=== PATIENT | female | born 1965 | race Caucasian/White ===

== ENCOUNTER 2018-02-20 19:30 | Outpatient (CLI) | payer OTHER | END 2018-02-20 19:31 | disposition home or self-care (01) | LOC: SLEEPLAB 19:30 | PROVIDERS: ATTEND Family Medicine | DX: Z02.9 Encounter for administrative examinations, unspecified (principal); G47.33 Obstructive sleep apnea (adult) (pediatric); G47.61 Periodic limb movement disorder | CPT/HCPCS: 95810 ==

== ENCOUNTER 2018-03-28 09:13 | Outpatient (CLI) | payer OTHER | END 2018-03-28 09:14 | disposition home or self-care (01) | LOC: DTY/OP 09:13 | PROVIDERS: ATTEND Specialist | DX: Z01.818 Encounter for other preprocedural examination (principal); E66.01 Morbid (severe) obesity due to excess calories | CPT/HCPCS: 97802 ==

== ENCOUNTER 2019-02-03 17:57 | Inpatient (IN) | payer OTHER ==
[~2019-02-03 17:57] MED LIST: ISOVUE-370 76%-LOCM 1 ML ONE
[2019-02-03] MEDS ORDERED: Albuterol Sulfate 2.5 mg/3 ml Neb ONE (19:40)
[2019-02-04] MEDS ORDERED: Acetaminophen 325 MG TAB ONE (00:34)
[2019-02-04] MEDS ORDERED: Gabapentin 400 MG CAP PO SCH (01:00)
[2019-02-04] MEDS ORDERED: Dextrose 5% in Water 1,000 ML IV PRN (03:04)
[2019-02-04] MEDS ORDERED: HumaLOG 300 UNITS/3 ML VIAL SC PRN ×2 (03:04)
[2019-02-04] MEDS ORDERED: Dextrose 50% Abboject 50 ML SYRINGE SLOW IVP PRN (03:04)
[2019-02-04] MEDS ORDERED: Calcium Carbonate 500 MG ChewTAB PO PRN (03:05)
[2019-02-04] MEDS ORDERED: Ondansetron ODT 4 MG TAB PO PRN (03:05)
[2019-02-04] MEDS ORDERED: Acetaminophen 325 MG TAB PO PRN (03:05)
[2019-02-04] MEDS ORDERED: Ondansetron PF 4 MG/2 ML Vial IVP PRN (03:05)
[2019-02-04] MEDS ORDERED: Amlodipine 5 MG TAB PO SCH (03:15)
[2019-02-04] MEDS ORDERED: Acetaminophen/Codeine 30-300mg Tablet ONE (03:25)
[2019-02-04 07:09] LABS: Troponin I Less than 0.010 ng/mL (< 0.028)
[2019-02-04] MEDS: Budesonide 0.5 MG/2 ML NEB INH SCH ×2 (08:19→18:41)
[2019-02-04] MEDS: Doxycycline 100 MG CAP PO SCH ×2 (09:11→20:45)
[2019-02-04] MEDS: Amlodipine 5 MG TAB PO SCH (09:11)
[2019-02-04] MEDS: Famotidine 20 MG TAB PO SCH ×2 (09:11→20:45)
[2019-02-04] MEDS: Enoxaparin Sodium 40 MG/0.4 ML SYRINGE SC SCH (09:12)
[2019-02-04] MEDS: guaiFENesin ER 600 MG TAB PO SCH ×2 (09:12→20:46)
[2019-02-04] MEDS: Gabapentin 400 MG CAP PO SCH ×3 (09:12→20:46)
[2019-02-04] MEDS: cefTRIAXone\\ROCEPHIN 1 GM in Sodium Chloride 0.9% 100 ML IVPB SCH (09:13)
[2019-02-04 09:14] LABS: Troponin I Less than 0.010 ng/mL (< 0.028)
--- NOTE | 2019-02-04 11:02 | RAD ---
EXAM: Two views chest PROVIDED CLINICAL HISTORY: Shortness of breath COMPARISON: 03/23/2018 FINDINGS: Cardiac silhouette remains enlarged. Lungs appear free of significant opacity. No pleural fluid or pn eumothorax apparent. IMPRESSION: No evidence for an acute cardiopulmonary process.
[2019-02-04] MEDS: Acetaminophen/Codeine 30-300mg Tablet PO PRN ×3 (11:27→22:49)
[2019-02-04] MEDS: Benzonatate 100 MG CAP PO PRN ×3 (11:28→22:49)
--- NOTE | 2019-02-04 15:55 | PDOC.PN ---
- Subjective Encounter Start Date: 02/04/19 Encounter Start Time: 15:53 Ms. bonner was seen today in follow-up of respiratory failure. she says she is breathing a little better, but still is short of breath. She tells me she was a smoker, but reports to have had PFT's which were equivocal for COPD. She also offers that she had a sleep study about 6 months ago which did not show sleep apnea. She says her grand child is sick with the " croup" and there is another family member at the bedside who is actively coughing during the encounter. - Objective Resuscitation Status - Order Detail: 02/04/19 03:05 Resuscitation Status Routine Resuscitation Status: FULL: Full Resuscitation MAR Reviewed: Yes Vital Signs & Weight: Vital Signs (12 hours) Temp Pulse Resp BP BP Pulse Ox 02/04/19 14:14 89 16 02/04/19 12:40 97.8 F 77 16 131/68 98 02/04/19 11:31 85 20 02/04/19 08:20 98 02/04/19 08:19 84 20 02/04/19 07:35 98.7 F 98 18 141/63 H 95 02/04/19 04:43 86 02/04/19 04:40 100 02/04/19 04:29 98 F 86 20 142/93 H 100 Weight Weight 376 lb 14.4 oz Additional Labs: Accuchecks 02/04/19 02/04/19 02/04/19 11:35 05:07 04:15 POC Glucose 368 H 342 H 363 H 02/04/19 01:29 POC Glucose 338 H Phys Exam - Physical Examination HEENT: PERRLA Respiratory: wheezing present + bilateral wheezing at both bases Cardiovascular: RRR, no significant murmur, no rub Gastrointestinal: soft, non-tender, no distention, positive bowel sounds Musculoskeletal: pulses present, edema present 1+ edema Dx/Plan (1) Acute bronchitis Code(s): J20.9 - ACUTE BRONCHITIS, UNSPECIFIED Status: Acute (2) DM type 2 (diabetes mellitus, type 2) Status: Chronic Qualifiers: Diabetes mellitus complication status: without complication (3) HTN (hypertension) Code(s): I10 - ESSENTIAL (PRIMARY) HYPERTENSION Status: Chronic Qualifiers: Hypertension type: essential hypertension Qualified Code(s): I10 - Essential (primary) hypertension (4) Morbid obesity Code(s): E66.01 - MORBID (SEVERE) OBESITY DUE TO EXCESS CALORIES Status: Chronic - Plan * Acute bronchitis- continue Rocephin and Doxycycline * Continue Duonebs and Steroids. * DM- blood glucose is elevated- will add scheduled Lantus * HTN- blood pressure is stable
[2019-02-04] MEDS ORDERED: Insulin Glargine 20 UNITS in Pre-Filled Syringe SC SCH (21:00)
[2019-02-05 05:38] LABS: #Eosinphils 0.1 thou/uL (0.0-0.7); #Lymphocytes 2.5 thou/uL (1.20-3.40); #Monocytes 0.5 thou/uL (0.11-0.59); #Neutrophils 4.6 thou/uL (1.40-6.50); %Basophils 0.3 % (0.0-1.0); %Eosinophils 1.5 % (0.0-10.0); %Lymphocytes 32.9 % (21.0-51.0); %Monocytes 6.1 % (0.0-10.0); %Neutrophils 59.2 % (42.0-75.0); Hemoglobin 9.4 g/dL (12.0-16.0); Mean Corpuscular HGB CONC 31.7 g/dL (32.0-36.0); Mean Corpuscular Hemoglobin 29.1 pg (27.0-31.0); Mean Corpuscular Volume 91.7 fL (78.0-98.0); Mean Platelet Volume 7.8 fL (7.4-10.4); Platelet Count 229 thou/uL (130-400); RBC Distribution Width 12.5 % (11.5-14.5); Red Blood Cell (RBC) Count 3.24 mill/uL (4.20-5.40); White Blood Cell (WBC) Count 7.7 thou/uL (4.8-10.8)
[2019-02-05 05:48] LABS: Anion Gap 12 mmol/L (10-20); BUN (Urea Nitrogen) 24 mg/dL (9.8-20.1); Calc. Creatinine Clearance 144 mL/min (70-130); Calcium 8.7 mg/dL (7.8-10.44); Carbon Dioxide 28 mmol/L (22-29); Chloride 105 mmol/L (98-107); Estimated GFR-MDRD 46; Glucose 132 mg/dL (70-105); Potassium 4.5 mmol/L (3.5-5.1); Sodium 140 mmol/L (136-145)
[2019-02-05] MEDS: Budesonide 0.5 MG/2 ML NEB INH SCH ×2 (06:52→18:42)
--- NOTE | 2019-02-05 07:09 | HP ---
PRIMARY CARE PHYSICIAN: Dr. Carvajal. CHIEF COMPLAINT: Cough, shortness of breath, and wheezing of 2 days duration. HISTORY OF PRESENT ILLNESS: The patient is a 53-year-old female with hypertension, morbid obesity and asthma, presented to the emergency room at [place] with above symptoms. Over the last 2 days, also the patient developed gradual worsening shortness of breath along with cough, chest tightness, and wheezing. She also had a temperature of 102 degree Fahrenheit. The cough was essentially dry. She also had significant wheezing. The patient was getting short of breath on minimal exertion. She denies any change in her lower extremity swelling or tenderness. No recent immobilization reported. She felt generally weak and lightheaded. She tried using albuterol nebulization without much relief. Granddaughter was diagnosed with croup recently. In the emergency room at [place], her initial vital signs showed temperature 100.1 with respirations of 20, pulse rate of 89 with a blood pressure of 215/83 with O2 saturation of 94% on 2 L nasal cannula. Initial O2 saturation was 85% on room air. Chest x-ray was negative for infiltrate. She received azithromycin, ceftriaxone, Solu-Medrol, DuoNeb along with clonidine in the emergency room. PAST MEDICAL HISTORY: 1. Hypertension. 2. Chronic pain syndrome. 3. Peripheral neuropathy. 4. Mild intermittent asthma. 5. Morbid obesity. 6. Suspected obstructive sleep apnea. 7. Hyperlipidemia. 8. Degenerative joint disease. 9. Chronic diastolic heart failure, ejection fraction of 50% to 55% in the past. PAST SURGICAL HISTORY: 1. Cholecystectomy. 2. section x5. ALLERGIES: THE PATIENT IS ALLERGIC TO [employer] INH[employer] AND MORPHINE. CURRENT HOME MEDICATIONS: 1. Insulin pump. 2. Tylenol No. 3 as needed. 3. Gabapentin 800 mg three times a day. SOCIAL HISTORY: The patient currently lives at home with her family. She denies current use of smoking, alcohol, or drug use. She makes her own decision with the help of her family. The patient quit smoking more than 30 years ago. FAMILY HISTORY: Father of stroke in his 60s. REVIEW OF SYSTEMS: All other review of systems was reviewed and were found negative. PHYSICAL EXAMINATION: VITAL SIGNS: As discussed above. GENERAL: A 53-year-old female sitting on her wheelchair. Intermittent coughing with audible wheezing noted. No significant accessory muscle use. HEENT: Head, atraumatic and normocephalic. Sclerae anicteric. Moist mucous membranes. Minimal erythema over the posterior pharynx noted. NECK: Supple. No JVD appreciated. No carotid bruits. LUNGS: Showed expiratory wheezing bilaterally with scattered rhonchi. No significant rales noted. Minimal accessory muscle use. HEART: S1 and S2 present. Regular rate and rhythm. No rubs or gallops. ABDOMEN: Soft, obese. Bowel sounds present. EXTREMITIES: Chronic venous stasis noted. The patient has chronic bilateral lower extremity tenderness from peripheral neuropathy which is unchanged per patient report. SKIN: Warm and dry. LYMPH NODES: No palpable lymph nodes in the neck. PERIPHERAL VASCULAR: Radial pulses palpable bilaterally. MUSCULOSKELETAL: No joint swelling or tenderness. LABORATORY FINDINGS: WBC of 6.6 with hemoglobin 9.9, hematocrit 30.9, platelet of 195. D-dimer was 0.86. Chemistry showed sodium 140, potassium 4.2, chloride 106, bicarb 24, BUN 14, and creatinine 0.98. Lactic acid 0.8. LFTs in normal range. BNP was 87.5. Chest x-ray by my review was negative for infiltrate. Telemetry monitoring by my review showed sinus rhythm. IMPRESSION: 1. Acute hypoxic respiratory failure, suspected secondary to viral bronchitis, rule out pneumonia. 2. Hypertensive urgency. Please note, the patient is currently not on any antihypertensives. 3. Diabetes mellitus type 2, on insulin pump. 4. Chronic pain syndrome secondary to peripheral neuropathy, on gabapentin. 5. Chronic kidney disease, stage 2. 6. Morbid obesity. 7. Suspected sleep apnea. 8. Dyslipidemia. PLAN: The patient will be monitored as 23-hour observation. We will get respiratory viral panel. We will continue empiric antibiotics for suspected pneumonia. We will get a chest x-ray, PA and lateral in a.m. We will continue her insulin pump. Acute checks q.4 hourly. She received IV Solu-Medrol in the emergency room. We will add nebulizer treatments. We will add antihypertensive. Plan of care was discussed with the patient in detail. She stated understanding. Job ID: [id number]
[2019-02-05] MEDS ORDERED: Sodium Chloride 0.9% 1,000 ML IV SCH (08:30)
[2019-02-05] MEDS ORDERED: Insulin Glargine 20 UNITS in Pre-Filled Syringe SC SCH (09:00)
[2019-02-05] MEDS: cefTRIAXone\\ROCEPHIN 1 GM in Sodium Chloride 0.9% 100 ML IVPB SCH (09:07)
[2019-02-05] MEDS: Enoxaparin Sodium 40 MG/0.4 ML SYRINGE SC SCH (09:08)
[2019-02-05] MEDS: Famotidine 20 MG TAB PO SCH ×2 (09:08→20:59)
[2019-02-05] MEDS: Doxycycline 100 MG CAP PO SCH (09:08)
[2019-02-05] MEDS: guaiFENesin ER 600 MG TAB PO SCH ×2 (09:09→20:59)
[2019-02-05] MEDS: Gabapentin 400 MG CAP PO SCH ×3 (09:09→20:59)
[2019-02-05] MEDS: Amlodipine 5 MG TAB PO SCH (09:10)
[2019-02-05] MEDS: Acetaminophen/Codeine 30-300mg Tablet PO PRN ×2 (09:31→20:59)
[2019-02-05] MEDS: Benzonatate 100 MG CAP PO PRN ×3 (09:31→21:01)
[2019-02-05 10:54] LABS: Lactic Acid 1.3 mmol/L (0.5-2.2)
--- NOTE | 2019-02-05 11:29 | PDOC.PN ---
- Subjective Encounter Start Date: 02/05/19 Encounter Start Time: 11:27 Subjective: Continues with wheezing and coughing. Unable to bring up much phlegm but -: feels very congested. Reports tigthness in her chest. Continues on O2. -: Does not normally use oxygen at home. Is not on inhalers regularly. Denies any hx of COPD but told she had exercised induced asthma as a child. Denies any hemoptysis. Denies any further fevers. No n/v. Maintaining fluid intake by mouth. No abdominal pain or cramping. Reports constipation, at baseline. Unable to manage with OTC medication due to nausea. Denies any headaches or dizziness. No urinary symptoms. - Objective Resuscitation Status - Order Detail: 02/04/19 03:05 Resuscitation Status Routine Resuscitation Status: FULL: Full Resuscitation Vital Signs & Weight: Vital Signs (12 hours) Temp Pulse Resp BP BP Pulse Ox 02/05/19 10:46 78 20 96 02/05/19 09:10 77 02/05/19 09:02 97.7 F 77 20 129/61 98 02/05/19 06:52 82 20 94 L 02/05/19 06:50 82 20 94 L 02/05/19 04:00 97.6 F 81 18 107/58 L 95 02/05/19 03:55 97.6 F 81 18 107/58 L 95 02/05/19 02:11 75 16 95 Weight Weight 380 lb 6.4 oz I&O: 02/04/19 02/05/19 02/06/19 06:59 06:59 06:59 Intake Total 1354 Balance 1354 Result Diagrams: 02/05/19 05:07 02/05/19 05:07 Additional Labs: Accuchecks 02/05/19 02/05/19 02/05/19 10:55 09:51 09:51 WBC RBC Hgb Hct MCV MCH MCHC RDW Plt Count MPV Neutrophils % Lymphocytes % Monocytes % Eosinophils % Basophils % Neutrophils # Lymphocytes # Monocytes # Eosinophils # Basophils # Sodium Potassium Chloride Carbon Dioxide Anion Gap BUN Creatinine Estimated GFR (MDRD) Glucose POC Glucose 180 H Lactic Acid 1.3 Calcium Magnesium Creatine Kinase 48 Troponin I 02/05/19 02/05/19 02/05/19 05:44 05:07 05:07 WBC 7.7 RBC 3.24 L Hgb 9.4 L Hct 29.7 L MCV 91.7 MCH 29.1 MCHC 31.7 L RDW 12.5 Plt Count 229 MPV 7.8 Neutrophils % 59.2 Lymphocytes % 32.9 Monocytes % 6.1 Eosinophils % 1.5 Basophils % 0.3 Neutrophils # 4.6 Lymphocytes # 2.5 Monocytes # 0.5 Eosinophils # 0.1 Basophils # 0.0 Sodium 140 Potassium 4.5 Chloride 105 Carbon Dioxide 28 Anion Gap 12 BUN 24 H Creatinine 1.23 H Estimated GFR (MDRD) 46 Glucose 132 H POC Glucose 149 H Lactic Acid Calcium 8.7 Magnesium Creatine Kinase Troponin I 02/04/19 02/04/19 02/04/19 20:43 16:53 11:35 WBC RBC Hgb Hct MCV MCH MCHC RDW Plt Count MPV Neutrophils % Lymphocytes % Monocytes % Eosinophils % Basophils % Neutrophils # Lymphocytes # Monocytes # Eosinophils # Basophils # Sodium Potassium Chloride Carbon Dioxide Anion Gap BUN Creatinine Estimated GFR (MDRD) Glucose POC Glucose 184 H 282 H 368 H Lactic Acid Calcium Magnesium Creatine Kinase Troponin I 02/04/19 02/04/19 02/04/19 08:43 06:33 02:40 WBC RBC Hgb Hct MCV MCH MCHC RDW Plt Count MPV Neutrophils % Lymphocytes % Monocytes % Eosinophils % Basophils % Neutrophils # Lymphocytes # Monocytes # Eosinophils # Basophils # Sodium Potassium Chloride Carbon Dioxide Anion Gap BUN Creatinine Estimated GFR (MDRD) Glucose POC Glucose Lactic Acid Calcium Magnesium 1.8 Creatine Kinase Troponin I Less than 0.010 Less than 0.010 02/04/19 02:40 WBC RBC Hgb Hct MCV MCH MCHC RDW Plt Count MPV Neutrophils % Lymphocytes % Monocytes % Eosinophils % Basophils % Neutrophils # Lymphocytes # Monocytes # Eosinophils # Basophils # Sodium Potassium Chloride Carbon Dioxide Anion Gap BUN Creatinine Estimated GFR (MDRD) Glucose POC Glucose Lactic Acid Calcium Magnesium Creatine Kinase Troponin I Less than 0.010 Phys Exam - Physical Examination Constitutional: NAD HEENT: PERRLA, oral pharynx no lesions MMs dry Neck: no nodes, supple, full ROM Respiratory: wheezing present inspiratory/expiratory wheezing throughout all lung fleming Cardiovascular: RRR Gastrointestinal: soft, non-tender, no distention, positive bowel sounds Musculoskeletal: no edema neuropathic pain in lower legs extending to knees Neurological: non-focal, moves all 4 limbs Psychiatric: normal affect, A&O x 3 Skin: no rash, normal turgor Dx/Plan (1) Acute bronchitis Code(s): J20.9 - ACUTE BRONCHITIS, UNSPECIFIED Status: Acute Plan: Hypoxia, requiring O2. Not on oxygen at home. Persistent wheezing despite nebs. Prednisone 40 mg PO x 1 now, continue daily. ABG, if abnormal and hypoxic on RA, will need to convert to inpatient and consult pulmonary medicine. (2) DM type 2 (diabetes mellitus, type 2) Status: Chronic Qualifiers: Diabetes mellitus complication status: without complication Plan: Continue ISS, monitor glucose. (3) Dyslipidemia Code(s): E78.5 - HYPERLIPIDEMIA, UNSPECIFIED Status: Chronic (4) HTN (hypertension) Code(s): I10 - ESSENTIAL (PRIMARY) HYPERTENSION Status: Chronic Qualifiers: Hypertension type: essential hypertension Qualified Code(s): I10 - Essential (primary) hypertension Plan: Continue to monitor BP. (5) Morbid obesity Code(s): E66.01 - MORBID (SEVERE) OBESITY DUE TO EXCESS CALORIES Status: Chronic (6) Acute respiratory failure with hypoxia Code(s): J96.01 - ACUTE RESPIRATORY FAILURE WITH HYPOXIA Status: Acute Plan: ABG requested. Prednisone 40 mg daily. Continue duo nebs demond q 4 hrs. Sputum C&S. Monitor O2 sats. - Plan cont current plan of care Positive for parainfluenza 3 and rhinovirus. -: UA/UCx pending, no urinary symptoms. -: IV access lost, order placed for midline. -: D/C abx as no bacterial source of infection at present. Monitor Temp & WCC -: Lactic Acid and CK normal. Plan discussed with Dr. Bernal who agrees with above. ADDENDUM: ABG done at 3pm. Patient slightly acidodic. pH 7.24, CO2 498, pO2 95.8. Following discussion with Dr. Bernal, plan is to continue scheduled nebs. Started patient on steroids earlier today. For Pulmonary Consult tomorrow. Convert to inpatient
[2019-02-05] MEDS ORDERED: predniSONE 20 MG TAB PO SCH (12:00)
[2019-02-05 15:17] LABS: Bilirubin Negative (Negative); Blood, Urine Negative (Negative); Clarity CLEAR (Clear); Glucose, Urine (Dipstick) 100 mg/dL (Negative); Leukocyte Trace (Negative); Nitrite Negative (Negative); Protein, Urine (Dipstick) 100 mg/dL (Neg-Trace); Specific Gravity, Urine 1.015 (1.002-1.036); pH, Urine 5.5 (5.0-9.0)
[2019-02-05 15:19] LABS: RBC/HPF 0-3 HPF (0-3)
[2019-02-05 15:22] LABS: Pathc Cast-AUWi Flag 2.85 (0-2.49); Yeast-AUWi Flag 58.7 (0-25.0)
[2019-02-05 15:25] LABS: Actual Bicarbonate (HCO3a) 25.2 mEq/L (22-28); Base Excess (BEa) -1.2 mEq/L (-2.0 to +3.0); CO2 Tension 49.8 mmHg (35.0-45.0); Calcium, Ionized 1.17 mmol/L (1.12-1.30); Carboxyhemoglobin (COHb) 0.4 gm% (0.0-3.0); Hemoglobin (Hb) 10.8 g/dL (12.0-16.0); O2 Tension (PaO2) 95.8 mmHg (80.0-100.0); Potassium - ABG Lab 4.24 mmol/L (3.70-5.30); pH, Arterial 7.32 (7.35-7.45)
[2019-02-05 15:28] LABS: Puncture Site L.R.
[2019-02-05 15:31] LABS: Bacteria/HPF Rare-Few HPF (None Seen); Hyaline Casts/LPF 0-3 HYALINE CAST LPF (0-3 Hyaline); Manual Microscopic Reviewed? No Path Casts Seen; Yeast-All Forms None Seen HPF (None Seen)
[2019-02-05 15:32] LABS: Urine Culture Reflex No No
[2019-02-05] MEDS ORDERED: HUMALOG INSULIN SC PRN (20:26)
[2019-02-06] MEDS: cloNIDine 0.1 MG TAB PO PRN ×3 (04:05→19:41)
[2019-02-06] MEDS: Budesonide 0.5 MG/2 ML NEB INH SCH ×2 (07:24→18:22)
[2019-02-06] MEDS: Gabapentin 400 MG CAP PO SCH ×3 (09:12→19:54)
[2019-02-06] MEDS: Amlodipine 5 MG TAB PO SCH (09:12)
[2019-02-06] MEDS: predniSONE 20 MG TAB PO SCH (09:13)
[2019-02-06] MEDS: Enoxaparin Sodium 40 MG/0.4 ML SYRINGE SC SCH (09:13)
[2019-02-06] MEDS: Famotidine 20 MG TAB PO SCH ×2 (09:13→19:54)
[2019-02-06] MEDS: guaiFENesin ER 600 MG TAB PO SCH ×2 (09:13→19:54)
--- NOTE | 2019-02-06 09:46 | PDOC.PN ---
- Subjective Encounter Start Date: 02/06/19 Encounter Start Time: 11:00 Subjective: Patient with some difficulty last night, but breathing much better this -: AM. Cough improving. Still on NC O2. - Objective Resuscitation Status - Order Detail: 02/04/19 03:05 Resuscitation Status Routine Resuscitation Status: FULL: Full Resuscitation MAR Reviewed: Yes Vital Signs & Weight: Vital Signs (12 hours) Temp Pulse Resp BP BP Pulse Ox 02/06/19 09:12 93 02/06/19 08:00 98.3 F 93 20 141/65 H 96 02/06/19 07:24 89 20 95 02/06/19 04:12 85 20 95 02/06/19 04:05 228/107 H 02/06/19 04:00 97.3 F L 78 20 207/93 H 97 02/06/19 02:09 80 18 94 L Weight Weight 387 lb 11.2 oz I&O: 02/05/19 02/06/19 02/07/19 06:59 06:59 06:59 Intake Total 1354 2020 Output Total 840 Balance 1354 1180 Result Diagrams: 02/05/19 05:07 02/05/19 05:07 Additional Labs: Accuchecks 02/06/19 02/06/19 02/05/19 08:53 06:05 20:28 POC Glucose 302 H 299 H 184 H 02/05/19 02/05/19 16:51 10:55 POC Glucose 135 H 180 H Phys Exam - Physical Examination Constitutional: NAD obese HEENT: moist MMs Respiratory: no rales, no rhonchi, wheezing present no increased WOB Cardiovascular: RRR, no significant murmur Musculoskeletal: no edema Neurological: non-focal, moves all 4 limbs Psychiatric: normal affect, A&O x 3 Dx/Plan (1) Acute bronchitis Code(s): J20.9 - ACUTE BRONCHITIS, UNSPECIFIED Status: Acute Comment: positive for parainfluenza virus and rhinovirus, reactive airway disease now on O2, nebs, and steroids, I suspect there is actually some underlying COPD as well so will add back on the doxycycline. (2) Acute respiratory failure with hypoxia Code(s): J96.01 - ACUTE RESPIRATORY FAILURE WITH HYPOXIA Status: Acute (3) HTN (hypertension) Code(s): I10 - ESSENTIAL (PRIMARY) HYPERTENSION Status: Chronic Qualifiers: Hypertension type: essential hypertension Qualified Code(s): I10 - Essential (primary) hypertension Comment: occassional very high spikes, but then drops back down to normal, suspicious of false elevations due to cuff fit (4) DM type 2 (diabetes mellitus, type 2) Status: Chronic Qualifiers: Diabetes mellitus terminal block assembler insulin use: with detention use Diabetes mellitus complication status: without complication Qualified Code(s): E11.9 - Type 2 diabetes mellitus without complications; Z79.4 - MCC (current) use of insulin Comment: continue insulin pump (5) Dyslipidemia Code(s): E78.5 - HYPERLIPIDEMIA, UNSPECIFIED Status: Chronic (6) Morbid obesity Code(s): E66.01 - MORBID (SEVERE) OBESITY DUE TO EXCESS CALORIES Status: Chronic (7) Obesity hypoventilation syndrome Code(s): E66.2 - MORBID (SEVERE) OBESITY WITH ALVEOLAR HYPOVENTILATION Status : Suspected Comment: suspected - Plan cont current plan of care, continue antibiotics, respiratory therapy, DVT proph w/lovenox, DVT proph w/SCDs try to D/C O2 today and if does better overnight tonight can d/c home * . - Discharge Day Encounter end time: 11:20
[2019-02-06 11:34] VITALS: BMI 58.9
[2019-02-06] MEDS: Benzonatate 100 MG CAP PO PRN ×2 (16:07→20:01)
[2019-02-06] MEDS: Acetaminophen/Codeine 30-300mg Tablet PO PRN (19:41)
[2019-02-06] MEDS: Doxycycline 100 MG CAP PO SCH (19:54)
[2019-02-06] MEDS ORDERED: hydrALAZINE 20 MG/ML VIAL SLOW IVP PRN (21:09)
[2019-02-06] MEDS ORDERED: Acetaminophen/Codeine 30-300mg Tablet PO PRN (22:47)
[2019-02-07] MEDS: Benzonatate 100 MG CAP PO PRN (06:00)
[2019-02-07] MEDS: Budesonide 0.5 MG/2 ML NEB INH SCH (07:55)
[2019-02-07] MEDS: Gabapentin 400 MG CAP PO SCH (08:53)
[2019-02-07] MEDS: Doxycycline 100 MG CAP PO SCH (08:53)
[2019-02-07] MEDS: guaiFENesin ER 600 MG TAB PO SCH (08:53)
[2019-02-07] MEDS: Famotidine 20 MG TAB PO SCH (08:54)
[2019-02-07] MEDS: predniSONE 20 MG TAB PO SCH (08:54)
[2019-02-07] MEDS: Amlodipine 5 MG TAB PO SCH (08:54)
[2019-02-07] MEDS: Enoxaparin Sodium 40 MG/0.4 ML SYRINGE SC SCH (08:54)
[2019-02-07] MEDS: Acetaminophen/Codeine 30-300mg Tablet PO PRN (09:00)
--- NOTE | 2019-02-07 09:13 | PDOC.PN ---
- Subjective Encounter Start Date: 02/07/19 Encounter Start Time: 10:00 Subjective: Patient feeling much better. Off O2 since yesterday AM. Still with cough -: and wheezing but much better. Ready to go home. - Objective Resuscitation Status - Order Detail: 02/04/19 03:05 Resuscitation Status Routine Resuscitation Status: FULL: Full Resuscitation MAR Reviewed: Yes Vital Signs & Weight: Vital Signs (12 hours) Temp Pulse Resp BP BP Pulse Ox 02/07/19 08:54 73 02/07/19 07:52 73 14 99 02/07/19 04:00 97.6 F 79 20 114/52 L 96 02/07/19 02:00 87 150/67 H 02/07/19 01:39 81 18 97 02/07/19 00:00 188/80 H 02/06/19 21:49 71 16 98 02/06/19 21:48 217/93 H 02/06/19 21:21 84 214/87 H Weight Admit Weight 276 lb 14.4 oz Weight 378 lb 4.8 oz I&O: 02/06/19 02/07/19 02/08/19 06:59 06:59 06:59 Intake Total 2019 1700 Output Total 840 200 Balance 1180 1500 Result Diagrams: 02/05/19 05:07 02/05/19 05:07 Additional Labs: Accuchecks 02/07/19 02/06/19 02/06/19 05:38 20:38 17:28 POC Glucose 179 H 376 H 257 H 02/06/19 11:08 POC Glucose 293 H Phys Exam - Physical Examination Constitutional: NAD HEENT: moist MMs Respiratory: no rales, no rhonchi, wheezing present improved air movement and less wheezing today Cardiovascular: RRR, no significant murmur Gastrointestinal: soft, positive bowel sounds Neurological: non-focal, moves all 4 limbs Psychiatric: normal affect, A&O x 3 Dx/Plan (1) Acute bronchitis Code(s): J20.9 - ACUTE BRONCHITIS, UNSPECIFIED Status: Acute Comment: positive for parainfluenza virus and rhinovirus, reactive airway disease now on O2, nebs, and steroids, I suspect there is actually some underlying COPD as well so will add back on the doxycycline. (2) Acute respiratory failure with hypoxia Code(s): J96.01 - ACUTE RESPIRATORY FAILURE WITH HYPOXIA Status: Acute (3) HTN (hypertension) Code(s): I10 - ESSENTIAL (PRIMARY) HYPERTENSION Status: Chronic Qualifiers: Hypertension type: essential hypertension Qualified Code(s): I10 - Essential (primary) hypertension Comment: occassional very high spikes, but then drops back down to normal, suspicious of false elevations due to cuff fit (4) DM type 2 (diabetes mellitus, type 2) Status: Chronic Qualifiers: Diabetes mellitus entry specialists insulin use: with jail use Diabetes mellitus complication status: without complication Qualified Code(s): E11.9 - Type 2 diabetes mellitus without complications; Z79.4 - supervisor electric (current) use of insulin Comment: continue insulin pump (5) Dyslipidemia Code(s): E78.5 - HYPERLIPIDEMIA, UNSPECIFIED Status: Chronic (6) Morbid obesity Code(s): E66.01 - MORBID (SEVERE) OBESITY DUE TO EXCESS CALORIES Status: Chronic (7) Obesity hypoventilation syndrome Code(s): E66.2 - MORBID (SEVERE) OBESITY WITH ALVEOLAR HYPOVENTILATION Status : Suspected Comment: suspected - Plan cont current plan of care, continue antibiotics, respiratory therapy Off O2, can d/c home today * . - Discharge Day Encounter end time: 10:15
[2019-02-07 11:44] VITALS: BP 179/79; TEMP 97.8
--- NOTE | 2019-02-07 15:10 | DIS ---
DATE OF ADMISSION: 02/04/2019 DATE OF DISCHARGE: 02/07/2019 PRIMARY CARE PHYSICIAN: Dr. Carvajal. REASON FOR ADMISSION: Cough, wheezing, and shortness of breath with hypoxic respiratory failure. DIAGNOSES AT DISCHARGE: 1. Acute viral bronchitis from parainfluenza and rhinoviruses with reactive airway disease. 2. Acute respiratory failure with hypoxia, improved. 3. Hypertension. 4. Diabetes mellitus, type 2. 5. Dyslipidemia. 6. Morbid obesity. 7. Suspected obesity hypoventilation syndrome. PROCEDURES: None. CONSULTATIONS: None. SUMMARY OF HOSPITAL COURSE: This is a 53-year-old white female with a history of morbid obesity and childhood asthma, but without recent significant symptoms. She took her child to the doctor who ended up having croup. The patient started to have cough, chest tightness and wheezing, temperature to 102 degrees Fahrenheit. At home, she did have a nebulizer from one of her children that she used once at home without significant improvement, so she came into the [facility]. There, she had a low-grade temperature, severe hypertension, and room-air hypoxia at 85%. No infiltrates noticed on the chest x-ray. She was given azithromycin, Rocephin, Solu-Medrol and DuoNeb, and then transferred to the hospital here for admission. The patient was treated with antibiotics in the hospital. She did have a nasal swab done, which showed positive for parainfluenza virus and rhinovirus, but she was negative for flu. At this time, her Rocephin was discontinued. She was continued on doxycycline during her hospital course, as well as prednisone and nebulizer treatments with slow improvement in her symptoms. She has been off oxygen for 24 hours, still having some wheezing and cough, but significantly better and ready to discharge home. DISCHARGE MANAGEMENT: Discharged home. FOLLOWUP: Follow up with Dr. Carvajal in the next week. ACTIVITY: As tolerated. DIET: Diabetic low-sodium diet. DISCHARGE MEDICATIONS: 1. Albuterol sulfate inhaler 2 puffs every 4 hours as needed for coughing, wheezing, shortness of breath, one inhaler dispensed. 2. DuoNeb 3 mL neb q.4 hours as needed for coughing, wheezing, shortness of breath, 60 vials dispensed. 3. Budesonide 0.5 mg inhaled via nebulizer twice a day, 30 ampules dispensed. 4. Amlodipine 5 mg daily, 30 tablets dispensed. 5. Tessalon Perles as needed. 6. Guaifenesin ER twice a day as needed. 7. Prednisone 40 mg daily for another 3 days. 8. Continue gabapentin 800 mg 3 times a day. 9. Continue home acetaminophen and codeine as needed. 10. Continue insulin pump as previously directed. She may continue to use at increased rate while she is still on the steroids and her blood sugar is running high. Job ID: [id number] OTPHER
== END 2019-02-07 13:52 | disposition home or self-care (01) | DRG 202 ==
LOC: ERS 17:57 → 2NO 02-04 01:58 → OBSVTOIN 02-04 01:58
PROVIDERS: ADMIT Internal Medicine; ATTEND Internal Medicine
DX: J20.4 Acute bronchitis due to parainfluenza virus (principal); J96.01 Acute respiratory failure with hypoxia; J45.901 Unspecified asthma with (acute) exacerbation; I50.22 Chronic systolic (congestive) heart failure; J44.0 Chronic obstructive pulmonary disease with (acute) lower respiratory infection; Z68.43 Body mass index [BMI] 50.0-59.9, adult; E66.2 Morbid (severe) obesity with alveolar hypoventilation; J20.6 Acute bronchitis due to rhinovirus; G89.4 Chronic pain syndrome; E78.5 Hyperlipidemia, unspecified; I11.0 Hypertensive heart disease with heart failure; E11.42 Type 2 diabetes mellitus with diabetic polyneuropathy; I16.0 Hypertensive urgency; Z96.41 Presence of insulin pump (external) (internal); M17.0 Bilateral primary osteoarthritis of knee; Z79.899 Other long term (current) drug therapy; Z88.5 Allergy status to narcotic agent; Z90.49 Acquired absence of other specified parts of digestive tract; Z87.891 Personal history of nicotine dependence; Z88.8 Allergy status to other drugs, medicaments and biological substances; Z79.4 Long term (current) use of insulin
CPT/HCPCS: 36415; 36416; 71046; 71275; 80048; 81001; 82550; 82805; 83605; 83735; 84145; 84484; 85025; 87040; 87633; 94640; 94760; J0360; J0696; J1650; J1825; J3490; J7512; J7611; J7620; J7626; Q0162; Q9966

== ENCOUNTER 2019-04-16 01:23 | Inpatient (IN) | payer OTHER, SELFPAY ==
[2019-04-16] MEDS ORDERED: Morphine 10 MG/ML VIAL ONE (02:39)
--- NOTE | 2019-04-16 07:30 | RAD ---
EXAM: Single view of the chest HISTORY: Central line placement COMPARISON: 04/15/2019 FINDINGS: Single view of the chest shows an enlarged but stable cardiomediastinal silhouette. A left IJ central venous catheter seen with its tip in the superior vena cava. No pneumothorax is seen. There is no evidence of consolidation, mass, or pleural effusion. The bones are unremarkable. IMPRESSION: Status post central line placement without evidence of complication.
--- NOTE | 2019-04-16 07:49 | CT ---
PRELIMINARY REPORT/[facility]/EMERGENCY AFTER HOURS PROCEDURE: EXAM: CT Right Lower Extremity Without Contrast, Foot EXAM DATE/TIME: 04/16/2019 2:10 AM CLINICAL HISTORY: 53 years old, female; Patient HX: 53yof w/hx of osteomyletis, HTN, dm, neuropathy, pvd, was transferr ed from [facility] for infection to right foot after stepping on a bottle cap 2 weeks ago. States pain has been worsening and it has turned color. Denies any fever. Has had some back pain recently with nausea . Diagnosed with pyelonephritis at [facility] and given dose of rocephin. TECHNIQUE: Imaging protocol: CT of the Right lower extremity without contrast was performed. Exam focused on the foot. Coronal and sagittal reformatted images were created and reviewed. COMPARISON: No relevant prior studies available. FINDINGS: Bones/joints: Chronic lysis of the head of the fifth metatarsal. Degenerative changes of the foot. No acute fracture. Soft tissues: Subcutaneous edema predominantly along the posterior lateral lower calf and throughout the foot. Focal increased soft tissue density around the 5th metatarsal interphalangeal joint without drainable fluid collection. IMPRESSION: 1. Subcutaneous edema throughout the posterior lateral lower calf and throughout the foot. 2. More focal soft tissue density at the 5th metatarsal interphalangeal joint with chronic lysis of t he head of the fifth metatarsal, either from chronic osteomyelitis or prior surgery. No drainable fluid collection. 3. No erosive changes of the foot suspicious for acute osteomyelitis; however MRI is more sensitive. Thank you for allowing us to participate in the care of your patient. Dictated and Authenticated by: Carolina Medley MD 04/16/2019 3:36 AM Central Time ([place] & [place]) FINAL REPORT: Exam: RIGHT FOOT CT SCAN WITHOUT IV CONTRAST: Emergency after exam 2:10 AM 04/16/2019 Generalized subcutaneous edema and swelling. Evidence for probable prior resection of the fifth metat arsal head. With minimal associated increased swelling but no evidence for drainable fluid collection. No evidence for acute bony erosive or destructive changes. Consider follow-up MRI which w ould be much more sensitive for early changes of osteomyelitis. This report is in agreement with a preliminary report. Transcribed Date/Time: 04/16/2019 9:17 AM
--- NOTE | 2019-04-16 08:55 | ULT ---
PRELIMINARY REPORT/[facility]/EMERGENCY AFTER HOURS PROCEDURE: EXAM: US Duplex Right Lower Extremity Veins, Limited EXAM DATE/TIME: 04/16/2019 4:08 AM CLINICAL HISTORY: 53 years old, female; Pain; Leg, lower; Right; Patient HX: History of neuropathy, cellulitis. Current right foot infection TECHNIQUE: Imaging protocol: Real-time Duplex ultrasound of the Right Lower Extremity with 2-D murguia scale, color Doppler flow and spectral waveform analysis. Limited exam was focused on the right lower extremity v eins. COMPARISON: No relevant prior studies available. FINDINGS: Right deep veins: The common femoral, femoral, proximal profunda femoral and popliteal veins are patent without thrombus. Normal Doppler waveforms. Normal compressibility and/or augmentation response. Visualized calf veins were patent. Right superficial veins: Saphenofemoral junction is patent without thrombus. Soft tissues: Soft tissue edema of the calf. IMPRESSION: 1. No evidence of deep vein thrombosis. 2. Soft tissue edema of the calf. Thank you for allowing us to participate in the care of your patient. Dictated and Authenticated by: Carolina Medley MD 04/16/2019 4:41 AM Central Time ([place] & [place]) FINAL REPORT EMERGENT AFTER HOURS RIGHT LOWER EXTREMITY VENOUS ULTRASOUND: FINDINGS/IMPRESSION: I agree with the findings and impression given in the preliminary report per [facility] physician. No evidence of right lower extremity deep vein thrombosis. POS: [facility]
[2019-04-16] MEDS ORDERED: Acetaminophen/Codeine 30-300mg Tablet PO SCH (11:00)
[2019-04-16] MEDS ORDERED: Acetaminophen/Codeine 30-300mg Tablet PO PRN (11:07)
[2019-04-16] MEDS ORDERED: Ondansetron PF 4 MG/2 ML Vial IVP PRN (11:08)
[2019-04-16] MEDS ORDERED: Guaifenesin DM 100-10/5 ML UDCUP PO PRN (11:08)
[2019-04-16] MEDS ORDERED: Bisacodyl 10 MG SUPP PR PRN (11:08)
[2019-04-16] MEDS ORDERED: Acetaminophen 325 MG TAB PO PRN (11:08)
[2019-04-16] MEDS ORDERED: Senokot S 8.6-50 MG TAB PO PRN (11:08)
[2019-04-16] MEDS ORDERED: HumaLOG 300 UNITS/3 ML VIAL SC PRN (11:17)
[2019-04-16 11:22] VITALS: BMI 55.5
[2019-04-16] MEDS ORDERED: Morphine 4 MG/ML VIAL SLOW IVP SCH (11:30)
--- NOTE | 2019-04-16 12:04 | CT ---
EXAM: Abdomen and pelvic CT scan without contrast: HISTORY: Urinary tract infection, obstructive uropathy, stones COMPARISON: None FINDINGS: The visualized lung bases are clear. Liver: Unremarkable. Gallbladder:Status post cholecystectomy. Pancreas:Unremarkable Spleen:Unremarkable. Adrenal glands:Unremarkable. Kidneys:Small nonobstructing left renal calculus. No evidence for acute obstruction. No solid or cystic mass. No evidence for bowel obstruction. No CT evidence for acute appendicitis. Urinary bladder is unremarkable. Small uterus. No abscess, adenopathy, or abnormal fluid collection within the abdomen or pelvis. IMPRESSION: Small nonobstructing left renal calculus. No evidence for acute obstruction or other acute process .
--- NOTE | 2019-04-16 14:48 | HP ---
Carmita Cain is a 53-year-old female, morbidly obese, 5 feet 8 inches, 365 pounds, 55 BMI. Has attended our bariatric seminar, completed a medically-supervised weight loss program, but has not followed up for bariatric surgery. She stepped on a coke bottle lid several weeks ago, resulting in some pain in her right foot. She has small hematoma beneath the fifth metatarsophalangeal area plantar. She states this is hurting her quite a bit. She has previously been seen in [place] while in the hospital and underwent resection of the fifth metatarsal head. The area of concern is in that same area. She has undergone plain x-rays and a CAT scan revealing some edema in the lower extremities, but no abscess. Clinically evaluation, she has palpable pedal pulses and although she is tender in this area, there is no evidence of infection. She has chronic venous stasis disease with chronic cellulitis of lower extremities, but this does not involve the area in question. She has been admitted from the emergency room for UTI. The patient is a poorly compliant diabetic. Glucose is 204. She is requesting her regular diet instead of a diabetic diet. I have discussed with Dr. Feliz, and plan is to send her home on oral antibiotics both for UTI and her foot, and she should follow up with me in my office in the next 2 to 3 weeks. Sooner, if there are any problems. She could also follow up with her foot surgeon due to her surgery in the past. Job ID: [id number]
[2019-04-16] MEDS ORDERED: Gabapentin 400 MG CAP PO SCH (15:00)
[2019-04-16 16:48] VITALS: BP 158/83; TEMP 97.8
[2019-04-16] MEDS ORDERED: Famotidine 20 MG TAB PO SCH (21:00)
[2019-04-16] MEDS ORDERED: Hydrochlorothiazide 25 MG TAB PO SCH (21:00)
--- NOTE | 2019-04-16 21:35 | SS ---
DATE OF ADMISSION: 04/16/2019 DATE OF DISCHARGE: 04/16/2019 REASON FOR ADMISSION: Suspected cellulitis, UTI. HISTORY OF PRESENTING ILLNESS: The patient gives history of stepping on a bottle cap in the shower two weeks back. This was a body lotion tube cap. She had a small laceration then with some bleeding. Her daughter, who is a nurse, put some silver sulfadiazine cream and this cut has healed well. She has a darkened skin area on the plantar aspect of the right 4th and 5th metatarsal head area. The patient apparently went to [place] ER as she had pain in her foot. She was transferred here for further care for her suspected cellulitis. The patient has pain in both lower extremities. She has chronic erythema and edema of both lower extremities. She also has diabetic neuropathy with extreme sensitivity in both legs. The patient stays last year when she had osteomyelitis in the right fifth metatarsal head, she had pneumonia and went into sepsis and acute renal failure and this concerned her hence went to [place] emergency room if she is having a current infection. PAST MEDICAL AND SURGICAL HISTORY: Diabetes mellitus from last 20 years, diabetic neuropathy, gastroparesis, hypertension, prior history of right 5th toe osteomyelitis, x5, cholecystectomy. CURRENT MEDICATIONS: The patient is on: 1. NovoLog insulin pump. 2. Gabapentin 800 mg three times daily. 3. Hydrochlorothiazide 25 mg on a p.r.n. basis. 4. Tylenol No.3 q.4 hours hourly p.r.n. ALLERGIES: ALLERGIC TO TAHMINA INHIBITORS AND LATEX. PLEASE NOTE, THE PATIENT IS NOT ALLERGIC TO MORPHINE, BUT WHEN SHE TAKES IT WITH PHENERGAN, SHE GOES INTO RESPIRATORY DEPRESSION. PERSONAL HISTORY: Does not smoke, abuse alcohol, or drugs. FAMILY HISTORY: Both parents are . Mother at the age of 76 years. She has had history of endometrial cancer. Father at the age of 75 years from a massive stroke. He also had history of COPD, emphysema, hypertension and was obese. REVIEW OF SYSTEMS: CONSTITUTIONAL: Negative for weight loss or gain, ability to conduct usual activities. SKIN: Negative for rash, itching. EYES: Negative for double vision, pain. ENT/MOUTH: Negative for nose bleeding, neck stiffness, pain, tenderness. CARDIOVASCULAR: Negative for palpitations, dyspnea on exertion, orthopnea. RESPIRATORY: Negative for shortness of breath, wheezing, cough, hemoptysis, fever or night sweats. GASTROINTESTINAL: Negative for poor appetite, abdominal pain, heartburn, nausea, vomiting, constipation, or diarrhea. GENITOURINARY: Negative for urgency, frequency, dysuria, nocturia. MUSCULOSKELETAL: Negative for pain, swelling. NEUROLOGIC/PSYCHIATRIC: Negative for anxiety, depression. ALLERGY/IMMUNOLOGIC: Negative for skin rash, bleeding tendency. PHYSICAL EXAMINATION: GENERAL: The patient is a 53-year-old female, who is currently not in any acute distress. VITAL SIGNS: Blood pressure 144/80, pulse 66 per minute, respiratory rate 16 per minute, temperature 97.5 degrees Fahrenheit, saturating 98% on room air. NECK: Supple. No elevated JVD. HEENT: Eyes; extraocular muscles intact. Pupils reacting to light. Oral cavity, mucous membranes are moist. No exudates or congestion. CARDIOVASCULAR: S1-S2 heard. Regular rhythm. RESPIRATORY: Air entry 1+ bilateral. No rales or rhonchi. ABDOMEN: Soft. Bowel sounds heard. No tenderness, rigidity, or guarding. EXTREMITIES: The patient has chronic nonpitting edema in both lower extremities and has erythema which is chronic again to both calf and leg area. The patient has increased sensitivity to both feet with no worsening of any pain in the right leg as such or foot area. She has a hematoma with discoloration of skin over the plantar aspect of right 4th and 5th metatarsal head area. Peripheral pulses are 1+ bilateral. No ischemic ulcers or gangrene. CENTRAL NERVOUS SYSTEM: No gross focal deficits noted. The patient is alert, awake, and oriented well. PSYCHIATRIC: Patient's mood is euthymic. No hallucinations or delusions. DIAGNOSTIC DATA: Right lower extremity CAT scan without contrast done shows subcutaneous edema. The patient has chronic lysis of the head of the 5th metatarsal. No drainable fluid collection. No erosive changes of the foot suspicious for acute osteomyelitis. CT stone protocol done shows small nonobstructing left renal calculus. No evidence for acute genitourinary obstruction or other acute process. Chest x-ray done shows left IJ central venous catheter in position with no complication. Right lower extremity ultrasound venous Doppler done shows no evidence of DVT. Right foot three-view x-ray done shows absence of 5th metatarsal head and neck. White count of 10, H and H 11 and 33, platelet count 231, MCV 86 with 65% neutrophils. BUN 24, creatinine 1.1, serum bicarb 26. Serum glucose was 403 last evening, current fingersticks are trending at 204 and 139. Liver enzymes are within normal limits. Albumin is 3.4. BNP 24. Urinalysis shows moderate leukocyte esterase, greater than 50 wbc's, 4+ bacteria. CLINICAL IMPRESSION AND PLAN: The patient will be shortly discharged home. She has chronic venous statis in lower extremities with edema and erythema in both lower extremities. There are no signs of acute cellulitis. She has urinary tract infection. CT stone protocol done showed no evidence of obstructive uropathy. The patient's white count is normal with no left shift as such. Dr. Ibarra has evaluated the patient for General Surgery as well and has cleared her for discharge. She will be placed on Levaquin 500 mg p.o. daily for a total of 7 days. The patient was counseled to follow strict 1800 kilocalorie ADA, heart healthy diet, but she refuses to do so and wants to be on regular diet. She is also not compliant with her hydrochlorothiazide and takes it as and when her edema gets worse. Ms. Cain was advised to follow up with Dr. Ibarra in 2 to 3 weeks and likely follow up for her bariatric procedure if she is willing due to elevated BMI of more than 50. She is hemodynamically stable and will be shortly discharged home. I have offered her that I could talk to her daughter, but the patient states that she has communicated well to her child and she is comfortable going home. Her left IJ central catheter will be removed prior to discharge. This was apparently placed due to inadequate venous access in the ER. Please note, this is a same day admit discharge summary. Code status was discussed and she is a full code. Job ID: [id number]
[2019-04-17] MEDS ORDERED: Enoxaparin Sodium 40 MG/0.4 ML SYRINGE SC SCH (09:00)
== END 2019-04-16 16:59 | disposition home or self-care (01) | DRG 690 ==
LOC: ERS 01:23 → T4-B 07:42
PROVIDERS: ADMIT Hospitalist; ATTEND Hospitalist
DX: N39.0 Urinary tract infection, site not specified (principal); Z68.43 Body mass index [BMI] 50.0-59.9, adult; E66.01 Morbid (severe) obesity due to excess calories; S90.31XA Contusion of right foot, initial encounter; I87.8 Other specified disorders of veins; I10 Essential (primary) hypertension; E11.42 Type 2 diabetes mellitus with diabetic polyneuropathy; J45.909 Unspecified asthma, uncomplicated; E78.5 Hyperlipidemia, unspecified; Z90.49 Acquired absence of other specified parts of digestive tract; Z79.4 Long term (current) use of insulin; Z88.8 Allergy status to other drugs, medicaments and biological substances; W22.8XXA Striking against or struck by other objects, initial encounter
CPT/HCPCS: 36416; 71045; 74176; J2270; J2405; J3370

== ENCOUNTER 2019-11-02 17:05 | Inpatient (IN) | payer OTHER ==
[~2019-11-02 17:05] MED LIST changes: -ISOVUE-370 76%-LOCM 1 ML ONE; +Iopamidol-370 76% 500 ML 1 ML ONE
[2019-11-02] MEDS ORDERED: Fentanyl 100 MCG/2 ML VIAL ONE (19:02)
--- NOTE | 2019-11-02 19:31 | ULT ---
RIGHT LOWER EXTREMITY DOPPLER VENOUS ULTRASOUND PROVIDED CLINICAL HISTORY: Redness and swelling within the distal medial right thigh TECHNIQUE: Grayscale and color Doppler sonography with spectral analysis was performed of the right common femor al, femoral, popliteal, posterior tibial, greater saphenous and profunda femoral veins. FINDINGS: There is normal compression, flow and augmentation seen within the majority of the deep roverto ous structures of the right lower extremity. Slightly diminished compression is seen within the distal right femoral vein due to patient discomfort with the examination. There is some mild soft tis sussy edema seen within this region. There is an enlarged lymph node within the right inguinal region measuring 3.4 x 1.5 cm. IMPRESSION: No definite sonographic evidence of DVT within the right lower extremity. Edema within the soft tissu es of the medial right thigh may reflect underlying cellulitis in light of the report of a history of erythema in this location. There is an enlarged lymph node within the right inguinal region suspic ious for reactive lymphadenopathy.
[2019-11-02] MEDS ORDERED: Cefepime 2 GM VIAL ONE (19:43)
--- NOTE | 2019-11-02 20:25 | CT ---
CTA Angio Chest W WO Con 11/02/2019 7:39 PM Indication: Chest Pain Technique: Multiple CTA images were obtained of the thorax with IV contrast. 3-D rendering: MIP hu nstructed images were created and reviewed. Comparison: CT PE examination dated August Findings: Pulmonary arteries: Respiratory motion artifact slightly limits image detail the segmental pulmonary arteries of the lower lobes. No definite central pulmonary embolus is demonstrated. Heart and Aorta: There are mild coronary artery and thoracic aortic calcifications. Mediastinum:Normal appearing. No enlarged lymph nodes. Lungs:The lungs are clear. Pleural space: Clear. Upper Abdomen: There is stable splenomegaly measuring up to 15.8 cm. The gallbladder surgically abse nt. Osseous Structures: No acute fracture or subluxation demonstrated. There is scattered degenerative a nd osteoarthritic change present. Soft tissues:No abnormality. Other findings:None. Impression: No central pulmonary embolus. Some limitations examination as above. Stable splenomegaly.
[2019-11-02 20:26] LABS: CKMB 1.2 ng/mL (0-6.6)
[2019-11-02] MEDS ORDERED: Acetaminophen 650 MG Suppository PR PRN (21:23)
[2019-11-02] MEDS ORDERED: Dextrose 5% in Water 1,000 ML IV PRN (21:26)
[2019-11-02] MEDS ORDERED: Dextrose 50% Abboject 50 ML SYRINGE SLOW IVP PRN (21:26)
[2019-11-02] MEDS ORDERED: Gabapentin 400 MG CAP PO SCH (22:30)
[2019-11-02] MEDS: Acetaminophen 325 MG TAB PO PRN (22:41)
[2019-11-02] MEDS ORDERED: hydrALAZINE 20 MG/ML VIAL SLOW IVP PRN (22:44)
[2019-11-02] MEDS ORDERED: Furosemide 20 MG TAB PO PRN (22:46)
[2019-11-02 22:55] LABS: Troponin I 0.155 ng/mL (< 0.028)
--- NOTE | 2019-11-03 00:45 | HP ---
TIME OF ASSESSMENT: 2100 hours. PRIMARY CARE PHYSICIAN: Dr. Carvajal. CHIEF COMPLAINT: Right lower extremity redness and swelling. HISTORY OF PRESENT ILLNESS: Ms. Cain is a 54-year-old woman, who has a history of diabetes mellitus on an insulin pump, morbid obesity, and coronary artery disease, who presents with complaints of right lower extremity redness and swelling. The patient states she has been feeling unwell since the beginning of the week with generalized muscle aches and chills. She was seen by her primary care physician , who started her on Tamiflu. The patient did not get tested for flu. Her last dose is for tomorrow. She states she continued to feel generally unwell until Tuesday when she then began to notice shortness of breath and central chest pain with exertion. She states she would easily get winded when walking to the toilet, which was not a long distance from her bed. The patient states she required moments of resting. She states the pain came across her chest and up into her neck and bilateral jaw. According to the patient, she moved subtle with rest. She denies any cough or hemoptysis. Reports mild headache, but denies any dizziness. No shortness of breath at rest. Denies having any nausea, vomiting, or abdominal pain. No urinary symptoms. No bowel changes. The patient states she noticed some discomfort and redness involving her right lower extremity this morning and she showed it to her daughter, who was a nurse. Due to concerns for blood clot, the patient came into the emergency department as prompted by her daughter. ED COURSE: The patient was initially seen at [place] [facility], where she underwent vital signs which demonstrated a mild temp of 99.3. She had an EKG done showing normal sinus rhythm with heart rate of 77. The patient was given Nitro-Bid, aspirin, and morphine. She was also given ondansetron and started on IV antibiotics with cefepime. She was transferred to the emergency department here and continued with antibiotics. Vancomycin was given. Due to concerns for DVT, she underwent a venous Doppler which was done of the right lower extremity only and showed no evidence of DVT. She did have edema within the soft tissues of the medial right thigh, felt to reflect underlying cellulitis. She had an enlarged lymph node within the right inguinal region suspicious for reactive lymphadenopathy. LABORATORY STUDIES: Done were notable for a white count of 13.5, hemoglobin 10, platelets 205, neutrophils 77%. D-dimer 0.90, BUN 25, creatinine 1.10, GFR 52. Lactic acid normal at 1.2. Initial troponins bumped to 0.177, second troponin was 0.199. BNP 95.6. CK-MB 1.2. Chest x-ray done at [place] [facility] showed marked cardiomegaly with no acute intrathoracic abnormality. Due to slightly bumped D-dimer, CT angiogram of the chest was done showing no central PE. There were some limitations, however, exam appeared otherwise stable. PAST MEDICAL HISTORY: 1. Type 2 diabetes mellitus, on insulin pump. 2. Peripheral neuropathy. 3. Fibromyalgia. 4. Gastroparesis. 5. Hypertension. 6. Bilateral osteoarthritis of the knees. 7. Asthma. 8. Morbid obesity. 9. Obstructive sleep apnea. 10. Hyperlipidemia. PAST SURGICAL HISTORY: 1. Tubal ligation x3. 2. Cholecystectomy. 3. x5. 4. Right foot bone removal adjacent to 5th toe. SOCIAL HISTORY: The patient denies any alcohol consumption, illicit drug use, or tobacco use. She lives at home and mobilizes independently at baseline. ALLERGIES: 1. TAHMINA INHIBITOR. 2. LATEX. 3. LISINOPRIL. CURRENT MEDICATIONS: 1. Gabapentin. 2. NovoLog. 3. Benicar. 4. HCTZ. 5. Lasix. 6. Simvastatin. PHYSICAL EXAMINATION: GENERAL: The patient appears well developed, well nourished, is in no acute distress. VITAL SIGNS: Temperature 99.4, pulse 82, blood pressure 136/66, respirations 20 , O2 saturation 96% on room air. HEENT: Normocephalic and atraumatic. Pupils are equal, round, and reactive to light. Sclerae icterus. Oropharynx is clear. NECK: Supple without lymphadenopathy. LUNGS: Clear to auscultation bilaterally without wheezes, rales, or rhonchi. CARDIAC: Regular rate and rhythm. ABDOMEN: Soft, nontender, and nondistended. Normoactive bowel sounds present. EXTREMITIES: Extremities are notable for slight erythema involving the right lower extremity and area involving the right lower leg and right upper thigh. The area is demarcated with a marker with no further extension beyond those borders. No seeping. No bleeding. Slightly indurated with obvious erythema and warmth to touch. SKIN: Warm and dry. NEUROLOGIC: Alert and oriented x3. No neuro deficits on exam. INVESTIGATIONS: As mentioned above in HPI. IMPRESSION AND PLAN: Ms. Cain is a 54-year-old woman, who is being admitted for management of the following. 1. Right lower extremity cellulitis. We will continue IV antibiotics. Pharmacy to dose vancomycin. We will continue to monitor her white cell count. 2. Chest pain/shortness of breath on exertion. We will continue to trend troponins. Cardiology consult placed as per recommendation by Dr. Gongora. EKG was unremarkable. We will repeat if the patient has further symptoms. CT angiogram negative for pulmonary embolism. The patient is asymptomatic at present. We will obtain an echo, last one done in 2015 showing an EF of 50% with mild left ventricular hypertrophy, grade 1/3 diastolic dysfunction, as well as mild TR and mild MR. 3. Diabetic foot wound. The patient with chronic wound involving the right foot for which she receives wound care at home. Wound Care consulted. Pictures taken. 4. Peripheral neuropathy. Resume gabapentin. 5. Hypertension. Monitor blood pressure. 6. Resume home medications once verified. 7. Recent flu. We will assess for flu. Continue Tamiflu, which she will complete tomorrow. Precautions placed. 8. Diabetes mellitus. Monitor blood glucose. Continue insulin pump. The patient on a heart healthy/consistent carb diet. 9. Code status is full. Surrogate decision maker is her daughter, Caron Cain. The patient's case was discussed with Dr. Gongora, who agrees upon the care as described above. Job ID: [id number] [id number]
[2019-11-03] MEDS ORDERED: Morphine 2 MG/ML SYRINGE SLOW IVP SCH (01:00)
[2019-11-03 01:55] LABS: Troponin I 0.139 ng/mL (< 0.028)
[2019-11-03] MEDS: Acetaminophen/Codeine 30-300mg Tablet PO PRN ×4 (02:59→18:36)
[2019-11-03] MEDS: Cefepime 1 GM in Sodium Chloride 0.9% 100 ML IVPB SCH ×3 (03:02→14:26)
[2019-11-03] MEDS ORDERED: Ondansetron ORAL SOLN. 4 MG/5 ML UDCUP PO PRN (03:57)
[2019-11-03] MEDS: Ondansetron PF 4 MG/2 ML Vial IVP PRN ×2 (04:08→09:43)
[2019-11-03] MEDS: Vancomycin HCl 1.75 GM in Sodium Chloride 0.9% 500 ML IVPB SCH ×2 (04:38→15:53)
[2019-11-03 05:06] LABS: #Eosinphils 0.2 thou/uL (0.0-0.7); #Lymphocytes 2.6 thou/uL (1.20-3.40); #Monocytes 0.7 thou/uL (0.11-0.59); #Neutrophils 9.7 thou/uL (1.40-6.50); %Basophils 0.4 % (0.0-1.0); %Eosinophils 1.4 % (0.0-10.0); %Lymphocytes 19.7 % (21.0-51.0); %Monocytes 5.5 % (0.0-10.0); Hemoglobin 9.6 g/dL (12.0-16.0); Mean Corpuscular HGB CONC 32.3 g/dL (32.0-36.0); Mean Corpuscular Hemoglobin 28.7 pg (27.0-31.0); Mean Corpuscular Volume 88.9 fL (78.0-98.0); Mean Platelet Volume 8.3 fL (7.4-10.4); Platelet Count 195 thou/uL (130-400); RBC Distribution Width 12.5 % (11.5-14.5); Red Blood Cell (RBC) Count 3.34 mill/uL (4.20-5.40); White Blood Cell (WBC) Count 13.3 thou/uL (4.8-10.8)
[2019-11-03 05:38] LABS: Anion Gap 12 mmol/L (10-20); BUN (Urea Nitrogen) 23 mg/dL (9.8-20.1); Calc. Creatinine Clearance 160 mL/min (70-130); Calcium 8.9 mg/dL (7.8-10.44); Carbon Dioxide 24 mmol/L (22-29); Chloride 105 mmol/L (98-107); Estimated GFR-MDRD 54; Glucose 117 mg/dL (70-105); Potassium 4.3 mmol/L (3.5-5.1); Sodium 137 mmol/L (136-145)
[2019-11-03] MEDS ORDERED: Olmesartan 5 MG TAB PO SCH (09:00)
[2019-11-03] MEDS ORDERED: Famotidine/PF 20 mg/2ml Vial SLOW IVP SCH (09:00)
[2019-11-03] MEDS: Gabapentin 400 MG CAP PO SCH ×3 (10:25→20:29)
[2019-11-03] MEDS: Losartan 25 MG TAB PO SCH (10:26)
[2019-11-03] MEDS: Oseltamivir 75 MG CAP PO SCH (10:26)
[2019-11-03] MEDS: Hydrochlorothiazide 25 MG TAB PO SCH (10:26)
--- NOTE | 2019-11-03 11:25 | CON ---
DATE OF CONSULTATION: 11/03/2019 REASON FOR CONSULTATION: Chest pain. PRIMARY HR COORDINATOR: Vasile Miramontes MD HISTORY OF PRESENT ILLNESS: Ms. Cain is a pleasant 54-year-old white female, who comes to the hospital for right lower extremity swelling and redness. She has been at home dealing with generalized muscle aches, pains, and chills. Primary care doctor started on Tamiflu for concerns of influenza infection. She did not really have much improvement with Tamiflu. She did begin noticing some shortness of breath and midsternal chest pain that radiated to her neck. She was short winded eventually with exertion. She noticed a redness and pain starting on her right lower extremity. A nurse friend told her that was concerning for the developing DVT with her symptoms of chest pain and shortness of breath, so she came to the hospital for this. She was evaluated with a venous ultrasound. She was ruled out for DVT. Cardiology has been consulted for evaluation of her chest pain. She has seen Dr. Miramontes in the past for similar atypical chest pain. She had a stress test that was negative, this in 2016. On my evaluation, she denies any current chest pain. She continues to have the right lower extremity swelling, which was diagnosed as cellulitis, it is very tender. PAST MEDICAL HISTORY: 1. Type 2 diabetes. 2. Peripheral neuropathy. 3. Fibromyalgia. 4. Gastroparesis. 5. Hypertension. 6. Bronchial asthma. 7. Morbid obesity. 8. MAME. 9. Hyperlipidemia. 10. Osteoarthritis of the knees. PAST SURGICAL HISTORY: 1. Tubal ligation x3. 2. Cholecystectomy. 3. . 4. Right foot bone removal adjacent to fifth toe. SOCIAL HISTORY: No alcohol, tobacco, or drugs. OUTPATIENT MEDICATIONS: Include, 1. Gabapentin. 2. NovoLog. 3. Benicar. 4. Hydrochlorothiazide. 5. Lasix. 6. Simvastatin. ALLERGIES: TAHMINA INHIBITORS, LATEX. REVIEW OF SYSTEMS: A 12-point review of systems was done and was all negative unless stated in the history of present illness. PHYSICAL EXAMINATION: VITAL SIGNS: Temperature 98.5, pulse 69, respiratory rate 15, saturating 91% on room air, blood pressure 122/58. GENERAL: Awake, alert, oriented x3. No distress. HEENT: Normocephalic and atraumatic. NECK: Supple. LUNGS: Clear. CARDIOVASCULAR: S1 and S2. No S3 or S4. No murmurs. ABDOMEN: Soft. Positive bowel sounds. EXTREMITIES: There is a large area of erythema on the thigh and on the anterior portion of the leg consistent with cellulitis. This is warm and tender to palpation, demarcated with a pen very large area. LABORATORY DATA: Laboratory work was reviewed. Flu titers were negative for both A and B. CBC with a white count of 13, hemoglobin 9.6, hematocrit of 29, platelet count of 195. Chemistries were unremarkable. Troponin was 0.19, 0.15, 0.13, which is in the indeterminate range as it has been in the past. EKG was reviewed, no ischemic changes. CT of the chest showed mild coronary artery and thoracic aortic calcifications. No central pulmonary embolus with splenomegaly, which appears to be stable from previous evaluations. ASSESSMENT AND PLAN: 1. Atypical chest pain. 2. Right lower extremity cellulitis, very large area. PLAN: 1. We will further risk stratify with a stress test. She has indeterminate troponins. 2. We will get an echocardiogram to assess left ventricular function and valvular structures. 3. No plan on intervention at this time, pending results of stress testing and echo. 4. Cellulitis therapies per Primary Team. Thank you for letting us to participate in the care of your patient. We will follow. Job ID: [id number]
[2019-11-03] MEDS ORDERED: Regadenoson 0.4 MG/5 ML SYRINGE ONE (15:15)
--- NOTE | 2019-11-03 15:29 | PRG ---
DATE OF SERVICE: 11/03/2019 SUBJECTIVE: The patient is seen at the bedside, admitted with chest pain, shortness of breath, and right leg redness, swelling, and pain. As per the patient, she is feeling better. Currently, denies any chest pain. Denies any shortness of breath at present. Denies nausea, vomiting, or diarrhea. Denies fever. OBJECTIVE: VITAL SIGNS: Temperature 98.9, pulse 73, respirations 14, oxygen saturation 95%, and blood pressure 142/66. GENERAL: The patient is lying in bed comfortably, not in distress. HEENT: Conjunctivae are normal. Oral mucosa mildly dry. NECK: Supple. No JVD. No lymphadenopathy. CHEST: Normal vesicular breathing. HEART: Sound normal. ABDOMEN: Soft. Redness of right medial leg area. Also mild redness above ankle area and chronic wound noted in right lower distal feet area. LABORATORY DATA: BMP unremarkable except BUN 23 and creatinine 1.07. Troponin 0.199, 0.155, and 0.139. CBC unremarkable except white blood cell 13.3 and hemoglobin 9.6. DVT study negative. IMPRESSION: 1. Chest pain with positive troponin. Cardiology evaluation appreciated. The patient is currently being arranged for a stress test to follow up the stress test results. 2. Right medial thigh area cellulitis. Continue antibiotics. Follow up culture. DVT study negative. 3. Chronic right lateral area wound. The patient is being taken care at home by Wound Care by her daughter who is the nurse, evaluated by Wound Care Team. We will get Infectious Disease evaluation. We will get x-ray in foot area, doubt osteomyelitis. Infectious Disease evaluation pending. We will keep right leg elevated. 4. Hypertension. Continue monitoring blood pressure. 5. Morbid obesity. The patient counseled on weight reduction and lifestyle modification. 6. Deep venous thrombosis and gastrointestinal prophylaxis. PLAN: Discussed with the patient and nursing staff in detail. Job ID: [id number]
[2019-11-03] MEDS: Docusate 100 MG CAP PO PRN (15:53)
--- NOTE | 2019-11-03 17:04 | RAD ---
XR Foot Rt 2 View INDICATION: Lateral foot wound COMPARISON: None. FINDINGS: Bones: There is postprocedural change of a partial ray amputation of the fifth digit metatarsal head neck. No destructive osteolytic is evident. There is diffuse osteopenia. Joints: Joints spaces appear preserved. Lisfranc alignment: Lisfranc alignment appears within normal limits. Soft tissues: There is soft tissue swelling of the forefoot. IMPRESSION: No acute osseous abnormality.
[2019-11-03] MEDS: Famotidine 20 MG TAB PO SCH (20:29)
[2019-11-03] MEDS: Atorvastatin Calcium 20 MG TAB PO SCH (20:29)
[2019-11-04] MEDS: Cefepime 1 GM in Sodium Chloride 0.9% 100 ML IVPB SCH ×2 (03:13→15:06)
[2019-11-04] MEDS: Ondansetron PF 4 MG/2 ML Vial SLOW IVP PRN ×2 (03:20→19:17)
[2019-11-04] MEDS ORDERED: Cefepime 1 GM in Sodium Chloride 0.9% 100 ML IVPB SCH (03:30)
[2019-11-04 03:37] LABS: #Eosinphils 0.3 thou/uL (0.0-0.7); #Lymphocytes 3.4 thou/uL (1.20-3.40); #Monocytes 0.8 thou/uL (0.11-0.59); %Basophils 0.3 % (0.0-1.0); %Lymphocytes 25.3 % (21.0-51.0); %Monocytes 5.7 % (0.0-10.0); %Neutrophils 66.6 % (42.0-75.0); Hemoglobin 8.7 g/dL (12.0-16.0); Mean Corpuscular HGB CONC 31.9 g/dL (32.0-36.0); Mean Corpuscular Hemoglobin 28.7 pg (27.0-31.0); Mean Corpuscular Volume 89.9 fL (78.0-98.0); Mean Platelet Volume 8.1 fL (7.4-10.4); Platelet Count 221 thou/uL (130-400); RBC Distribution Width 12.5 % (11.5-14.5); Red Blood Cell (RBC) Count 3.04 mill/uL (4.20-5.40); White Blood Cell (WBC) Count 13.6 thou/uL (4.8-10.8)
[2019-11-04 03:56] LABS: Anion Gap 8 mmol/L (10-20); BUN (Urea Nitrogen) 22 mg/dL (9.8-20.1); Calc. Creatinine Clearance 147 mL/min (70-130); Calcium 8.4 mg/dL (7.8-10.44); Carbon Dioxide 30 mmol/L (22-29); Chloride 104 mmol/L (98-107); Estimated GFR-MDRD 49; Glucose 66 mg/dL (70-105); Potassium 4.2 mmol/L (3.5-5.1); Sodium 138 mmol/L (136-145)
[2019-11-04 03:57] LABS: Vancomycin, Trough 21.8 ug/mL
[2019-11-04] MEDS: Vancomycin HCl 1.75 GM in Sodium Chloride 0.9% 500 ML IVPB SCH (05:06)
[2019-11-04] MEDS: Vancomycin 1.5 GRAM/300 ML BAG 1.5 GM in Premix Bag 1 BAG IVPB SCH ×2 (05:54→18:11)
[2019-11-04] MEDS: Acetaminophen/Codeine 30-300mg Tablet PO PRN ×4 (06:02→20:49)
[2019-11-04] MEDS: Oseltamivir 75 MG CAP PO SCH (10:05)
[2019-11-04] MEDS: Hydrochlorothiazide 25 MG TAB PO SCH (10:10)
[2019-11-04] MEDS: Famotidine 20 MG TAB PO SCH ×2 (10:11→19:17)
[2019-11-04] MEDS: Losartan 25 MG TAB PO SCH (10:11)
[2019-11-04] MEDS: Gabapentin 400 MG CAP PO SCH ×3 (10:11→19:16)
[2019-11-04] MEDS: Docusate 100 MG CAP PO PRN (10:18)
--- NOTE | 2019-11-04 10:24 | NM ---
NUCLEAR MEDICINE CARDIAC STRESS TEST WITH EJECTION FRACTION: HISTORY: Chest pain. COMPARISON: Stress test from 2016. TECHNIQUE: Stress and rest performed after the intravenous administration of 27.6 and 31 millicuries of techneti um 99m sestamibi, respectively. FINDINGS: There is adequate left ventricular uptake of radiotracer. Small scar left ventricular apex with small volume septal reversible ischemia. The wall motion appears normal. Ejection fraction is 57%. IMPRESSION: 1. Small scar, left ventricular apex, with low grade septal reversible ischemia. 2. Normal ejection fraction. POS: OFF
--- NOTE | 2019-11-04 11:21 | PDOC.CPN ---
- Subjective Date: 11/04/19 Time: 11:19 Interval history: No chest pain, Her cellulitis is improving with abx. - Review of Systems General: denies: fever/chills, weight/appetite/sleep changes, night sweats, fatigue Respiratory: denies: cough, congestion, shortness of breath, exercise intolerance Cardiovascular: denies: chest pain, palpitation, edema, paroxysmal nocturnal dyspnea, orthopnea Gastrointestinal: denies: nausea, vomiting, diarrhea, constipation, abd pain, GI bleeding Musculoskeletal: reports: swelling. denies: pain, tenderness, stiffness, arthritis/arthralgias Neurological: denies: numbness, syncope, seizure, weakness - Objective Allergies/Adverse Reactions: Allergies Allergy/AdvReac Type Severity Reaction Status Date / Time TAHMINA Inhibitors Allergy Verified 02/04/19 04:40 latex based adhesives Allergy Uncoded 02/04/19 04:40 Visit Medications: Current Medications Acetaminophen (Tylenol) 650 mg PO Q4H PRN PRN Reason: Headache/Fever/Mild Pain (1-3) Last Admin: 11/02/19 22:41 Dose: 650 mg Acetaminophen (Tylenol) 650 mg MS Q4H PRN PRN Reason: Headache/Fever/Mild Pain (1-3) Acetaminophen/Codeine Phosphate (Tylenol #3) 2 tab PO Q4HR PRN PRN Reason: Pain Last Admin: 11/04/19 10:08 Dose: 2 tab Atorvastatin Calcium (Lipitor) 20 mg PO HS [facility] Last Admin: 11/03/19 20:29 Dose: 20 mg Dextrose/Water (Dextrose 50%) 25 gm SLOW IVP PRN PRN PRN Reason: Hypoglycemia Docusate Sodium (Colace) 100 mg PO DAILYPRN PRN PRN Reason: Constipation Last Admin: 11/04/19 10:18 Dose: 100 mg Famotidine (Pepcid) 20 mg PO Q12HR [facility] Last Admin: 11/04/19 10:11 Dose: 20 mg Furosemide (Lasix) 20 mg PO DAILYPRN PRN PRN Reason: Edema Gabapentin (Neurontin) 800 mg PO TID [facility] Last Admin: 11/04/19 10:11 Dose: 800 mg Glucagon (Glucagon) 1 mg IM PRN PRN PRN Reason: Hypoglycemia Hydralazine HCl (Apresoline) 5 mg SLOW IVP Q4H PRN PRN Reason: SBP Greater Than 180 Last Admin: 11/02/19 22:53 Dose: 5 mg Hydrochlorothiazide (Hydrochlorothiazide) 25 mg PO DAILY [facility] Last Admin: 11/04/19 10:10 Dose: 25 mg Dextrose/Water (D5w) 1,000 mls @ 0 mls/hr IV .Q0M PRN PRN Reason: Hypoglycemia Cefepime HCl 1 gm/ Sodium (Chloride) 100 mls @ 200 mls/hr IVPB 0330,1530 [facility] Last Admin: 11/04/19 03:13 Dose: 100 mls Vancomycin HCl 1.5 gm/ Device 300 mls @ 200 mls/hr IVPB 0600,1800 [facility] Last Admin: 11/04/19 05:54 Dose: 300 mls Losartan Potassium (Cozaar) 25 mg PO DAILY [facility] Last Admin: 11/04/19 10:11 Dose: 25 mg Miscellaneous Medication (Pharmacy To Dose) 1 each IVPB PRN PRN PRN Reason: Pharmacy to dose Ondansetron HCl (Zofran) 4 mg PO Q6H PRN PRN Reason: Nausea/Vomiting Ondansetron HCl (Zofran) 4 mg SLOW IVP Q4H PRN PRN Reason: Nausea/Vomiting Last Admin: 11/04/19 03:20 Dose: 4 mg Oseltamivir Phosphate (Tamiflu) 75 mg PO DAILY [facility] Last Admin: 11/04/19 10:05 Dose: Not Given Sodium Chloride (Flush - Normal Saline) 10 ml IVF Q12HR PRN PRN Reason: Saline Flush Last Admin: 11/03/19 04:37 Dose: 10 ml Sodium Chloride (Flush - Normal Saline) 10 ml IVF PRN PRN PRN Reason: Saline Flush Last Admin: 11/04/19 05:55 Dose: 10 ml Vital Signs & Weight: Vital Signs Temp Pulse Resp BP Pulse Ox 11/04/19 07:50 97.8 F 67 18 136/58 L 96 11/04/19 03:11 97.6 F 67 15 105/50 L 94 L Admit Weight 366 lb 6.4 oz Weight 367 lb 12.8 oz - Physical Exam General: alert & oriented x3 HEENT: mucus membranes moist Neck: supple neck Cardiac: regular rate and rhythm Lungs: clear to auscultation Neuro: grossly intact Abdomen: active bowel sounds Extremities: 1+ LE edema Skin: other (Area of cellulitis on right leg improving.) Musculoskeletal: no pain - Labs Result Diagrams: 11/04/19 03:00 11/04/19 03:00 Troponin/CKMB CK-MB (CK-2) 1.2 ng/mL (0-6.6) 11/02/19 19:32 Troponin I 0.139 ng/mL (< 0.028) H 11/03/19 01:31 - Telemetry Sinus rhythms and dysrhythmias: sinus rhythm - Assessment/Plan Assessment/Plan: 1. RIght lower extremity cellulitis 2. Chest pain 3. Abnormal stress test. PLAN: - Continue abx. - Likely risk stratification with [facility] once cellulitis resolved. Likely outpatient.
--- NOTE | 2019-11-04 14:17 | PRG ---
DATE OF SERVICE: 11/04/2019 SUBJECTIVE: The patient seen at bedside, says still has mod pain in her upper right thigh area. Redness mildly improved today, but as per the patient, pain is getting a little bit more spread. Denies fever, chest pain, shortness of breath, headache, or dizziness. The patient was performed a stress test, which was positive. Cardiology recommended cardiac catheterization once the patient's cellulitis has been improved. OBJECTIVE: VITAL SIGNS: Blood pressure 133/66, temperature 97.2, pulse 66, respirations 20, and oxygen saturation 98%. GENERAL: The patient is a morbidly obese lady, lying in bed comfortably, in no distress. HEENT: Conjunctivae normal. Oral mucosa moist. NECK: Supple. No JVD. CHEST: Normal vesicular breathing. HEART: Sounds normal. ABDOMEN: Soft. EXTREMITIES: Swelling and redness noted right medial thigh area. Redness is being improving but local tenderness on pain positive. Black eschar noted right lateral foot area. Ankle area redness improved. LABORATORY DATA: CBC unremarkable except white blood cells 13.6, hemoglobin 8.7, platelets 221. BMP unremarkable except creatinine 1.16, blood glucose 91. IMPRESSION: 1. Chest pain with positive troponin and abnormal stress test. Cardiology evaluation appreciated, recommended outpatient cardiac catheterization once the cellulitis improved. 2. Right medial thigh area cellulitis. The patient redness is mildly improved, but as per the patient, she has worsening pain today. DVT study is negative. We will continue antibiotics. We will continue pain medications and keep right leg elevated, pending Infectious Disease evaluation. 3. Chronic right lateral area wound on right foot. Continue local wound care. X-ray negative for acute osteomyelitis. Keep right leg elevated. Continue pain medication as needed. Continue local wound care. 4. Hypertension. Continue monitoring blood pressure. 5. Morbid obesity. The patient counseled on weight reduction and lifestyle modification. 6. Deep venous thrombosis and gastrointestinal prophylaxis. Due to persistent pain and leukocytosis and in the presence of abnormal cardiac stress test, we will change the patient's status to inpatient and control her pain and cellulitis and we will discharge in next 24 to 48 hours after Infectious Disease evaluation. Plan discussed with the patient and nursing staff in detail. Job ID: [id number]
[2019-11-04] MEDS: Atorvastatin Calcium 20 MG TAB PO SCH (19:17)
--- NOTE | 2019-11-04 22:00 | CON ---
DATE OF CONSULTATION: 11/04/2019 REASON FOR CONSULTATION: Cellulitis and right foot inflammatory process. HISTORY OF PRESENT ILLNESS: A 54-year-old, who has a history of obesity and type 2 diabetes mellitus with neuropathy and was in her usual state until about a week before admission when she developed sudden onset of chills and fever without any other symptoms. She went to the emergency room and was given a diagnosis of influenza or other type of respiratory viral infection without actual testing and because of lack of improvement, she came and was admitted, and once became obvious that she had right lower extremity cellulitis instead of influenza. Influenza test done at the emergency room was negative by the way. She has been started on broad-spectrum coverage. Still with quite a bit of pain and erythema along the right lower extremity as described below. No headaches, visual symptoms, sore throat, odynophagia, dysphagia. No cough, or sputum production. She had some chest pain, which was atypical. She had a stress test done this admission. A little bit of dyspnea actually. No abdominal pain. She is constipated. Voiding without difficulty. No neurological symptoms. PAST MEDICAL HISTORY: Obesity, type 2 diabetes, fibromyalgia, gastric varices, hypertension, sciatica, asthma, sleep apnea, hyperlipidemia, osteoarthritis, knee. PAST SURGICAL HISTORY: Tubal ligation x2, cholecystectomy. She became after the first tubal ligation. She had a resection of the head of the fifth metatarsal right foot reportedly in the past. SOCIAL HISTORY: No smoking history. Lives with family. No alcoholic beverage use. FAMILY HISTORY: Type 2 diabetes, obesity. ALLERGIES: TAHMINA INHIBITORS, LATEX. MEDICATIONS: 1. Tylenol. 2. Lipitor. 3. Cefepime. 4. Colace. 5. Pepcid. 6. Furosemide. 7. Neurontin. 8. Apresoline. 9. Losartan. 10. Ondansetron. 11. Vancomycin.. 12. Tamiflu. PHYSICAL EXAMINATION: VITAL SIGNS: T-max 98 to 99.9, blood pressure 130/60, pulse 66, respirations 20, O2 saturation 98. SKIN: Shows the ascending areas of cellulitis and lymphangitis in the right lower extremity from the lateral forefoot region bottom aspect, where there is a central area of hyperpigmentation and an early ulceration with a pinpoint opening at the center. This area has erythema surrounding it and quite tender to palpation and there is an area of erythema extending to the leg and medial thigh, right side as well, which is quite tender to palpation. The patient has a peripheral IV access. LYMPH: No lymphadenopathy. HEENT: Noncontributory. NECK: Supple. LUNGS: Symmetric. Clear breath sounds. HEART: S1 and S2. Regular rate. Diminished heart sounds. No obvious murmurs. ABDOMEN: Soft, very prominent panniculus. Some degree of intertriginous maceration in the groin area. She is voiding spontaneously. EXTREMITIES: Some element of osteoarthrosis in large joints. Pulses are 1+ in dorsalis pedis. Cap refill is normal. NEURO: Nonfocal including cognitive function. LABORATORY DATA: White cell count 13.3 and 13.6, hemoglobin 9.6, platelets 195, 73% neutrophils, 19% lymphocytes. Sodium 138, creatinine 1.16 with a baseline of 1.0. Previous liver profile within normal limits. Albumin 3.7 from July 12. Previous blood gas; pH 7.32, pCO2 49, PO2 95. IMAGING STUDIES: Foot x-ray with no evidence of areas of osteolysis. Again, no evidence of acute osseous abnormality. Chest CT angio with no evidence of pulmonary embolism or infiltrates. She has a duplex ultrasound with no evidence of deep vein thrombosis, and microbiology with negative influenza test. Pending blood cultures. ASSESSMENT: 1. Obesity. 2. Hypoventilation syndrome. 3. Neuropathy. 4. Type 2 diabetes. 5. Chronic ulcer in bottom aspect of the right fifth metatarsophalangeal joint skin site with associated cellulitis ascending towards the leg and thigh with good vascular supply. DISCUSSION: The differential diagnosis includes abscess plus-minus osteomyelitis of the remaining areas of the bone in the 5th ray associated with cellulitis/lymphangitis ascending towards the right thigh. Bacteremia has not yet been identified. The patient had a stress test, which showed a fixed defect at the apex. At this moment, we will continue antimicrobial therapy as currently and order an imaging study. She is 370 pounds, so I do not know if she would fit in the MRI machine. If not, then we would have to attempt a CT and/or bone scan. She may need surgical exploration of the fifth MPJ site. The types of organisms associated with this kind of process include Staphylococcus aureus/MRSA, streptococci, Enterococcus, gram-negative rods, and anaerobes. Job ID: [id number]
[2019-11-05] MEDS: Acetaminophen/Codeine 30-300mg Tablet PO PRN ×4 (02:05→20:48)
[2019-11-05] MEDS: Cefepime 1 GM in Sodium Chloride 0.9% 100 ML IVPB SCH ×2 (02:06→14:07)
[2019-11-05] MEDS: Ondansetron PF 4 MG/2 ML Vial SLOW IVP PRN (02:17)
[2019-11-05 04:51] LABS: #Eosinphils 0.4 thou/uL (0.0-0.7); #Lymphocytes 2.6 thou/uL (1.20-3.40); #Monocytes 0.7 thou/uL (0.11-0.59); %Basophils 0.2 % (0.0-1.0); %Eosinophils 3.2 % (0.0-10.0); %Lymphocytes 21.9 % (21.0-51.0); %Monocytes 5.8 % (0.0-10.0); %Neutrophils 68.9 % (42.0-75.0); Hemoglobin 8.9 g/dL (12.0-16.0); Mean Corpuscular HGB CONC 31.8 g/dL (32.0-36.0); Mean Corpuscular Hemoglobin 28.6 pg (27.0-31.0); Mean Corpuscular Volume 89.9 fL (78.0-98.0); Mean Platelet Volume 7.9 fL (7.4-10.4); Platelet Count 244 thou/uL (130-400); RBC Distribution Width 12.6 % (11.5-14.5); Red Blood Cell (RBC) Count 3.12 mill/uL (4.20-5.40); White Blood Cell (WBC) Count 11.6 thou/uL (4.8-10.8)
[2019-11-05 05:08] LABS: Anion Gap 11 mmol/L (10-20); BUN (Urea Nitrogen) 19 mg/dL (9.8-20.1); Calc. Creatinine Clearance 165 mL/min (70-130); Calcium 8.1 mg/dL (7.8-10.44); Carbon Dioxide 26 mmol/L (22-29); Chloride 104 mmol/L (98-107); Estimated GFR-MDRD 55; Potassium 4.5 mmol/L (3.5-5.1); Sodium 136 mmol/L (136-145)
[2019-11-05 05:11] LABS: Glucose 49 mg/dL (70-105)
[2019-11-05] MEDS: Vancomycin 1.5 GRAM/300 ML BAG 1.5 GM in Premix Bag 1 BAG IVPB SCH ×2 (05:22→17:42)
[2019-11-05] MEDS: Hydrochlorothiazide 25 MG TAB PO SCH (08:25)
[2019-11-05] MEDS: Gabapentin 400 MG CAP PO SCH ×3 (08:25→20:46)
[2019-11-05] MEDS: Losartan 25 MG TAB PO SCH (08:25)
[2019-11-05] MEDS: Famotidine 20 MG TAB PO SCH ×2 (08:25→20:47)
[2019-11-05] MEDS: Oseltamivir 75 MG CAP PO SCH (08:26)
[2019-11-05 10:33] LABS: Cardiac Risk 5.9 (Less than 4.5)
--- NOTE | 2019-11-05 12:17 | PDOC.HOSPP ---
- Subjective Encounter Date: 11/05/19 Encounter Time: 09:00 Subjective: no sob or chest pain says she is ambulating in room left leg pain is better but still hurts when she walks - Objective Vital Signs & Weight: Vital Signs (12 hours) Temp Pulse Resp BP BP Pulse Ox 11/05/19 11:41 98.9 F 73 18 131/58 L 97 11/05/19 07:43 97.6 F 76 18 139/60 94 L 11/05/19 02:58 97.5 F L 66 18 123/59 L 96 Weight Admit Weight 366 lb 6.4 oz Weight 367 lb 12.8 oz I&O: 11/04/19 11/05/19 11/06/19 06:59 06:59 06:59 Intake Total 4064 3503 Balance 4064 3509 Result Diagrams: 11/05/19 04:32 11/05/19 04:32 Additional Labs: Accuchecks 11/05/19 11/05/19 11/05/19 10:48 06:01 05:40 POC Glucose 88 83 61 L 11/04/19 11/04/19 11/03/19 20:47 17:08 14:41 POC Glucose 105 74 118 H Hospitalist ROS - Medication Medications: Active Medications Generic Name Dose Route Start Last Admin Trade Name Freq PRN Reason Stop Dose Admin Acetaminophen 650 mg 11/02/19 21:23 11/02/19 22:41 Tylenol PO 650 mg Q4H PRN Administration Headache/Fever/Mild Pain (1-3) Acetaminophen/Codeine Phosphate 2 tab 11/03/19 00:51 11/05/19 09:25 Tylenol #3 PO 2 tab Q4HR PRN Administration Pain Atorvastatin Calcium 20 mg 11/03/19 21:00 11/04/19 19:17 Lipitor PO 20 mg HS LIUDMILA Administration Docusate Sodium 100 mg 11/03/19 15:22 11/04/19 10:18 Colace PO 100 mg DAILYPRN PRN Administration Constipation Famotidine 20 mg 11/03/19 21:00 11/05/19 08:25 Pepcid PO 20 mg Q12HR LIUDMILA Administration Gabapentin 800 mg 11/03/19 09:00 11/05/19 08:25 Neurontin PO 800 mg TID LIUDMILA Administration Hydralazine HCl 5 mg 11/02/19 22:44 11/02/19 22:53 Apresoline SLOW IVP 5 mg Q4H PRN Administration SBP Greater Than 180 Hydrochlorothiazide 25 mg 11/03/19 09:00 11/05/19 08:25 Hydrochlorothiazide PO 25 mg DAILY LIUDMILA Administration Cefepime HCl 1 gm/ Sodium 100 mls @ 200 mls/hr 11/03/19 03:30 11/05/19 02:06 Chloride IVPB 100 mls 0330,1530 LIUDMILA Administration Vancomycin HCl 1.5 gm/ Device 300 mls @ 200 mls/hr 11/04/19 06:00 11/05/19 05 :22 IVPB 300 mls 0600,1800 LIUDMILA Administration Losartan Potassium 25 mg 11/03/19 09:00 11/05/19 08:25 Cozaar PO 25 mg DAILY LIUDMILA Administration Ondansetron HCl 4 mg 11/03/19 15:21 11/05/19 02:17 Zofran SLOW IVP 4 mg Q4H PRN Administration Nausea/Vomiting Oseltamivir Phosphate 75 mg 11/03/19 09:00 11/05/19 08:26 Tamiflu PO 75 mg DAILY LIUDMILA Administration Sodium Chloride 10 ml 11/02/19 21:23 11/03/19 04:37 Flush - Normal Saline IVF 10 ml Q12HR PRN Administration Saline Flush Sodium Chloride 10 ml 11/02/19 21:23 11/04/19 05:55 Flush - Normal Saline IVF 10 ml PRN PRN Administration Saline Flush - Exam General Appearance: NAD, awake alert Eye: PERRL, anicteric sclera ENT: no oropharyngeal lesions, moist mucosa Neck: supple, no JVD Heart: RRR, no murmur Respiratory: no wheezes, no rales, no ronchi Gastrointestinal: soft, non-tender, non-distended, normal bowel sounds Extremities - other findings: left leg erythema+ Neurological: cranial nerve grossly intact, no focal deficits Psychiatric: normal affect, A&O x 3 Hosp A/P (1) Cellulitis of left lower extremity Code(s): L03.116 - CELLULITIS OF LEFT LOWER LIMB Status: Acute (2) DM type 2 (diabetes mellitus, type 2) Status: Chronic Qualifiers: Diabetes mellitus terminal system operator insulin use: with halfway use Diabetes mellitus complication status: without complication Qualified Code(s): E11.9 - Type 2 diabetes mellitus without complications; Z79.4 - [facility] (current) use of insulin (3) Dyslipidemia Code(s): E78.5 - HYPERLIPIDEMIA, UNSPECIFIED Status: Chronic (4) HTN (hypertension) Code(s): I10 - ESSENTIAL (PRIMARY) HYPERTENSION Status: Chronic Qualifiers: Hypertension type: essential hypertension Qualified Code(s): I10 - Essential (primary) hypertension (5) Morbid obesity Code(s): E66.01 - MORBID (SEVERE) OBESITY DUE TO EXCESS CALORIES Status: Chronic (6) COPD (chronic obstructive pulmonary disease) Status: Suspected (7) Obesity hypoventilation syndrome Code(s): E66.2 - MORBID (SEVERE) OBESITY WITH ALVEOLAR HYPOVENTILATION Status : Suspected - Plan hemostable has septal reversible defect small area with apical scar, bmi is 57, unclear if these are true areas of isch is on vanc, cefepime for left LE cellulitis may tx to medical floor she manages her dm, has insulin pump with basal rate and gives bolus dosing based on carb intake continue cozaar, hctz, lipitor and neurontin to [facility] in hallway as tolerated dc plan in am if stable change status to inpatient. will have outpt cath after cellulitis resolves per cardiology.
[2019-11-05] MEDS ORDERED: Iopamidol-370 76% 500 ML 1 ML ONE (15:09)
[2019-11-05 17:35] LABS: Vancomycin, Trough 28.4 ug/mL
--- NOTE | 2019-11-05 17:38 | PRG ---
DATE OF SERVICE: 11/05/2019 Still quite significant pain on ambulation in the lateral right forefoot and moderate pain in the right medial thigh. Breathing okay. No diarrhea. Afebrile, other VS wnl Lungs clear, S1S2, rrr. Soft abd, not tender. Receding cellulitis in the right thigh and leg, but the right foot [employer]. White cell count 11.6, hemoglobin 8.9, and platelets 244. Sodium 136. Could not fit in the MRI, so we will have to order a CT of the right foot or maybe a bone scan or both. Continue antimicrobial therapy. I suspect she probably has osteomyelitis there. Job ID: [id number] [id number]
--- NOTE | 2019-11-05 18:17 | CT ---
CT right leg with IV contrast CT right foot with IV contrast HISTORY: Right leg and foot pain and swelling. Infection. FINDINGS: There is mild stranding throughout the subcutaneous fat of the leg and foot. No soft tissue gas or focal fluid collections evident. Reactive appearing lymph nodes at the right groin measuring up to 2.0 cm. Fluid within the suprapatel lar bursa of the right knee. Prominent OsteoArthritic changes with lateral subluxation of the patella. Focal area of dystrophic calcification associated with the anterior medial subcutaneous tiss ues of the lower leg at the level of the mid tibia. Calcification throughout the arterial structures. IMPRESSION: Fat stranding/edema within the subcutaneous tissues of the right leg and foot is fairly m ild. No soft tissue gas. Atherosclerosis. Prominent arthritic changes of the right knee with joint effusion.
[2019-11-05] MEDS: Atorvastatin Calcium 20 MG TAB PO SCH (20:47)
[2019-11-05] MEDS: Docusate 100 MG CAP PO PRN (20:56)
[2019-11-06] MEDS: Cefepime 1 GM in Sodium Chloride 0.9% 100 ML IVPB SCH ×2 (03:37→16:09)
[2019-11-06] MEDS: Acetaminophen/Codeine 30-300mg Tablet PO PRN ×3 (03:42→21:03)
[2019-11-06] MEDS ORDERED: Vancomycin 1.5 GRAM/300 ML BAG 1.5 GM in Premix Bag 1 BAG IVPB SCH (06:00)
[2019-11-06] MEDS: Ondansetron PF 4 MG/2 ML Vial SLOW IVP PRN ×2 (08:07→21:10)
[2019-11-06] MEDS: Famotidine 20 MG TAB PO SCH ×2 (08:08→21:03)
[2019-11-06] MEDS: Oseltamivir 75 MG CAP PO SCH (08:08)
[2019-11-06] MEDS: Gabapentin 400 MG CAP PO SCH ×3 (08:08→21:03)
[2019-11-06] MEDS: Hydrochlorothiazide 25 MG TAB PO SCH (08:08)
[2019-11-06] MEDS: Losartan 25 MG TAB PO SCH (08:08)
--- NOTE | 2019-11-06 10:50 | PDOC.HOSPP ---
- Subjective Encounter Date: 11/06/19 Encounter Time: 09:45 Subjective: still c/o pain to touch her legs and on ambulation no sob or chest pain has amb in hallway per patient - Objective Vital Signs & Weight: Vital Signs (12 hours) Temp Pulse Resp BP Pulse Ox 11/06/19 09:09 100.0 F H 11/06/19 07:47 99.2 F 89 20 149/69 H 94 L 11/06/19 03:52 97.4 F L 68 18 114/53 L 96 Weight Admit Weight 366 lb 6.4 oz Weight 367 lb 12.8 oz I&O: 11/05/19 11/06/19 11/07/19 06:59 06:59 06:59 Intake Total 3503 580 Balance 3503 580 Result Diagrams: 11/05/19 04:32 11/05/19 04:32 Additional Labs: Accuchecks 11/05/19 11/05/19 11/05/19 20:32 16:37 10:48 POC Glucose 96 115 H 88 Hospitalist ROS - Medication Medications: Active Medications Generic Name Dose Route Start Last Admin Trade Name Freq PRN Reason Stop Dose Admin Acetaminophen 650 mg 11/02/19 21:23 11/02/19 22:41 Tylenol PO 650 mg Q4H PRN Administration Headache/Fever/Mild Pain (1-3) Acetaminophen/Codeine Phosphate 2 tab 11/03/19 00:51 11/06/19 08:10 Tylenol #3 PO 2 tab Q4HR PRN Administration Pain Atorvastatin Calcium 20 mg 11/03/19 21:00 11/05/19 20:47 Lipitor PO 20 mg HS LIUDMILA Administration Docusate Sodium 100 mg 11/03/19 15:22 11/05/19 20:56 Colace PO 100 mg DAILYPRN PRN Administration Constipation Famotidine 20 mg 11/03/19 21:00 11/06/19 08:08 Pepcid PO 20 mg Q12HR LIUDMILA Administration Gabapentin 800 mg 11/03/19 09:00 11/06/19 08:08 Neurontin PO 800 mg TID LIUDMILA Administration Hydralazine HCl 5 mg 11/02/19 22:44 11/02/19 22:53 Apresoline SLOW IVP 5 mg Q4H PRN Administration SBP Greater Than 180 Hydrochlorothiazide 25 mg 11/03/19 09:00 11/06/19 08:08 Hydrochlorothiazide PO 25 mg DAILY LIUDMILA Administration Cefepime HCl 1 gm/ Sodium 100 mls @ 200 mls/hr 11/03/19 03:30 11/06/19 03:37 Chloride IVPB 100 mls 0330,1530 LIUDMILA Administration Losartan Potassium 25 mg 11/03/19 09:00 11/06/19 08:08 Cozaar PO 25 mg DAILY LIUDMILA Administration Ondansetron HCl 4 mg 11/03/19 15:21 11/06/19 08:07 Zofran SLOW IVP 4 mg Q4H PRN Administration Nausea/Vomiting Oseltamivir Phosphate 75 mg 11/03/19 09:00 11/06/19 08:08 Tamiflu PO 75 mg DAILY LIUDMILA Administration Sodium Chloride 10 ml 11/02/19 21:23 11/03/19 04:37 Flush - Normal Saline IVF 10 ml Q12HR PRN Administration Saline Flush Sodium Chloride 10 ml 11/02/19 21:23 11/04/19 05:55 Flush - Normal Saline IVF 10 ml PRN PRN Administration Saline Flush - Exam General Appearance: awake alert Eye: PERRL, anicteric sclera ENT: no oropharyngeal lesions, moist mucosa Neck: supple, no JVD Heart: RRR, no murmur Respiratory: no wheezes, no rales Gastrointestinal: soft, non-tender, non-distended, normal bowel sounds Extremities: no edema Extremities - other findings: erythema is receding Neurological: cranial nerve grossly intact, no focal deficits Psychiatric: normal affect, A&O x 3 Hosp A/P (1) Cellulitis of left lower extremity Code(s): L03.116 - CELLULITIS OF LEFT LOWER LIMB Status: Acute (2) DM type 2 (diabetes mellitus, type 2) Status: Chronic Qualifiers: Diabetes mellitus emt intermediate insulin use: with detention use Diabetes mellitus complication status: without complication Qualified Code(s): E11.9 - Type 2 diabetes mellitus without complications; Z79.4 - 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 (3) Dyslipidemia Code(s): E78.5 - HYPERLIPIDEMIA, UNSPECIFIED Status: Chronic (4) HTN (hypertension) Code(s): I10 - ESSENTIAL (PRIMARY) HYPERTENSION Status: Chronic Qualifiers: Hypertension type: essential hypertension Qualified Code(s): I10 - Essential (primary) hypertension (5) Morbid obesity Code(s): E66.01 - MORBID (SEVERE) OBESITY DUE TO EXCESS CALORIES Status: Chronic (6) COPD (chronic obstructive pulmonary disease) Status: Suspected (7) Obesity hypoventilation syndrome Code(s): E66.2 - MORBID (SEVERE) OBESITY WITH ALVEOLAR HYPOVENTILATION Status : Suspected - Plan hemostable has septal reversible defect small area with apical scar, bmi is 57, unclear if these are true areas of isch is on vanc, cefepime for left LE cellulitis may tx to medical floor she manages her dm, has insulin pump with basal rate and gives bolus dosing based on carb intake continue cozaar, hctz, lipitor and neurontin to amb in hallway as tolerated, oob to chair dc antibiotics per adv will have outpt cath after cellulitis resolves per cardiology.
[2019-11-06] MEDS: Acetaminophen 325 MG TAB PO PRN ×2 (10:58→16:21)
[2019-11-06] MEDS ORDERED: Ibuprofen 200 MG TAB PO PRN (12:36)
[2019-11-06] MEDS ORDERED: Morphine 2 MG/ML SYRINGE SLOW IVP PRN (12:36)
--- NOTE | 2019-11-06 13:54 | PQF ---
CLINICAL DOCUMENTATION IMPROVEMENT CLARIFICATION FORM: ICD-10 Updated PLEASE DO AN ADDENDUM TO THE PROGRESS NOTE WITH ANY DOCUMENTATION UPDATES OR ADDITIONS AND CARRY THROUGH TO DC SUMMARY. THANK YOU. DATE: 11/06/2019 ATTN: Dr. Feliz Please exercise your independent, professional judgment in responding to the clarification form. Clinical indicators are provided on the bottom of this form for your review Please check appropriate box(s): Conflicting documentation was noted in the Medical Record, please clarify if patient is being treated/monitored for: [ x ] Cellulitis of right lower extremity. [ ] Cellulitis of left lower extremity. [ ] Other diagnosis [ ] Unable to determine In addition, please specify: Present on Admission (POA): [ x ] Yes [ ] No [ ] Unable to determine For continuity of documentation, please document condition throughout progress notes and discharge summary. Thank You. CLINICAL INDICATORS - SIGNS / SYMPTOMS/ LABS / RESULTS AND LOCATION IN EMR H&P 11/02: Right lower extremity cellulitis. Diabetic foot wound. 11/04 (María) Chronic ulcer in bottom aspect of the right fifth metatarsophalangeal joint skin site with associated cellulitis ascending towards the leg and thigh with good vascular supply 11/05 -11/06 PN: Cellulitis of left lower extremity. Acute RISKS: H&P 11/02: PMH: Type 2 diabetes mellitus, on insulin pump. Morbid obesity. Impression: Diabetic foot wound. The pt with chronic wound involving the r foot. Peripheral neuropathy. Hypertension. TREATMENT: MAR: Order 11/03: Maxipime 1 gm IV MAR: Order 11/06 IV Vancomycin HCL 2 gm Thank you, Chloé (This form is maintained as a part of the permanent medical record) 2014 [employer]. All Rights Reserved Chloé Barnes RN, BSN [email or web address] Office: [phone] [facility]
[2019-11-06] MEDS: Atorvastatin Calcium 20 MG TAB PO SCH (21:03)
--- NOTE | 2019-11-06 21:48 | CON ---
DATE OF CONSULTATION: REASON FOR CONSULTATION: Right foot wound. HISTORY OF PRESENT ILLNESS: Ms. Cain is a 54-year-old woman with a chronic wound of her right foot since May. She states that she stepped on a bottle cap in the shower and bruised that area of her foot overlying her right 5th metatarsal. She did not worry about it until it blistered, at which point, she called her daughter who is a nurse and they did some local wound care to the area. After the blister broke, she developed an ulcer in the area and had been going to wound care in [place], but then was unable to continue going to Wound Care due to a combination of transportation issues and insurance issues. She has been doctoring at home, but started having some fevers and chest pain over the weekend, so she came into the hospital and was admitted. She was found to have some redness over her lower extremity that she states that this is chronic and has been present for many months on both legs and has not changed. She was also noted to have some lymphadenopathy in the right inguinal area, but no lymphangitic streaking. She has continued to have intermittent fevers throughout her hospitalization and Dr. Daniel is concerned that she could have occult osteomyelitis. A CT has been performed of the foot, which did not show any obvious osteomyelitis or any undrained abscess. Dr. Daniel has recommended a bone scan to be performed. PAST MEDICAL HISTORY: Super morbid obesity with a BMI of 57, diabetes, on an insulin pump, sleep apnea, hypertension, asthma, hyperlipidemia, osteoarthritis, fibromyalgia, gastroparesis, and diabetic neuropathy. PAST SURGICAL HISTORY: Cholecystectomy, , tubal ligation, and removal of the sesamoid bone from the right 5th metatarsal area. SOCIAL HISTORY: The patient does not smoke, drink, or use illicit drugs. ALLERGIES: SHE HAS ALLERGIES TO [place] INHIBITORS AND LATEX. OUTPATIENT MEDICATIONS: Include an; 1. Insulin pump. 2. Gabapentin. 3. NovoLog. 4. Benicar. 5. Hydrochlorothiazide. 6. Lasix. 7. Simvastatin. REVIEW OF SYSTEMS: Ten system review of systems is negative except per HPI. The patient was having some chest pain on admission, but is not having any currently. PHYSICAL EXAMINATION: VITAL SIGNS: T-max was 101.8 earlier today. She was not having any subjective fevers when I saw her, heart rate 82, respirations 20, 92% saturated on 2 L nasal cannula, blood pressure 130/56. GENERAL: Reveals a morbidly obese woman, in no acute distress. HEENT: Unremarkable. NECK: Supple without lymphadenopathy or thyroid nodules. HEART: Regular in its rate and rhythm without murmurs, rubs, or gallops. LUNGS: Clear to auscultation bilaterally, although breath sounds are distant. ABDOMEN: Soft, nontender, nondistended. EXTREMITIES: Warm with normal capillary refill. I am unable to definitely palpate dorsalis pedis, posterior tibial, or popliteal pulses, but she does have a palpable femoral pulse on the right. She does have some enlarged femoral lymph nodes as well. She has a chronic ulcer over the right lateral 5th metatarsal. This does not probe to the deep tissues or to the bone or to the joint and there is no expressible drainage or localized cellulitis, induration, or discharge. She is tender to palpation in the area; however, she has a healed surgical incision from superior and lateral to this wound. She has some redness upon the shins bilaterally, which she states is chronic. The edges are marked and this has not changed since her admission. NEUROLOGIC: She is grossly intact to light touch and there are no focal deficits. PSYCHIATRIC: Alert, oriented, and appropriate. LABORATORY DATA: White count is elevated at 11, hematocrit 28, platelets 244. Electrolytes on the 13th were unremarkable. Blood glucoses ranged from 49 to 148 in the past day. Rapid antigen testing for influenza A and B was negative. Blood cultures sent from the outside ER are both negative at [address] and plain films of the foot did not show any obvious osteomyelitis or abscess. Bone scan is still pending. Nuclear medicine stress test showed an ejection fraction of 57% with low-grade septal reversible ischemia and a small scar at the left ventricular apex. CT angio of the chest performed at her admission was negative for any pulmonary embolism, although the exam was somewhat limited. She has stable splenomegaly. ASSESSMENT: Chronic ulcer of the right metatarsal head, which on examination does not appear to probe to bone or joint or to the deep tissues of the foot. No undrained abscess on examination or CT. Occult osteomyelitis is still possible, although there is no evidence for this on clinical exam. I will await results of the bone scan. We will order noninvasive arterial testing to evaluate the blood supply to the foot, although clinically her capillary refill is normal and she has warm pink toes. I think that this wound has failed to heal due to inadequate wound care and inadequate offloading. Job ID: [id number]
[2019-11-07] MEDS: Acetaminophen/Codeine 30-300mg Tablet PO PRN (03:54)
[2019-11-07] MEDS: Cefepime 1 GM in Sodium Chloride 0.9% 100 ML IVPB SCH ×3 (03:54→20:23)
--- NOTE | 2019-11-07 09:55 | PDOC.HOSPP ---
- Subjective Encounter Date: 11/07/19 Encounter Time: 09:46 Subjective: nausea, still has pain in RLE - Objective Vital Signs & Weight: Vital Signs (12 hours) Temp Pulse Resp BP Pulse Ox 11/07/19 09:05 93 L 11/07/19 07:29 98.1 F 66 20 119/67 11/07/19 04:36 98.2 F 73 18 145/72 H 91 L 11/06/19 23:42 98.8 F 70 18 113/54 L 96 Weight Admit Weight 366 lb 6.4 oz Weight 367 lb 12.8 oz I&O: 11/06/19 11/07/19 11/08/19 06:59 06:59 06:59 Intake Total 580 Balance 580 Result Diagrams: 11/05/19 04:32 11/05/19 04:32 Additional Labs: Accuchecks 11/07/19 11/07/19 11/07/19 08:51 06:12 04:33 POC Glucose 100 112 H 55 L* 11/06/19 11/06/19 11/06/19 19:46 16:11 10:49 POC Glucose 76 107 148 H Hospitalist ROS - Medication Medications: Active Medications Generic Name Dose Route Start Last Admin Trade Name Freq PRN Reason Stop Dose Admin Acetaminophen 650 mg 11/02/19 21:23 11/06/19 16:21 Tylenol PO 650 mg Q4H PRN Administration Headache/Fever/Mild Pain (1-3) Acetaminophen/Codeine Phosphate 2 tab 11/03/19 00:51 11/07/19 03:54 Tylenol #3 PO 2 tab Q4HR PRN Administration Pain Atorvastatin Calcium 20 mg 11/03/19 21:00 11/06/19 21:03 Lipitor PO 20 mg HS LIUDMILA Administration Docusate Sodium 100 mg 11/03/19 15:22 11/05/19 20:56 Colace PO 100 mg DAILYPRN PRN Administration Constipation Famotidine 20 mg 11/03/19 21:00 11/06/19 21:03 Pepcid PO 20 mg Q12HR LIUDMILA Administration Gabapentin 800 mg 11/03/19 09:00 11/06/19 21:03 Neurontin PO 800 mg TID LIUDMILA Administration Hydralazine HCl 5 mg 11/02/19 22:44 11/02/19 22:53 Apresoline SLOW IVP 5 mg Q4H PRN Administration SBP Greater Than 180 Hydrochlorothiazide 25 mg 11/03/19 09:00 11/06/19 08:08 Hydrochlorothiazide PO 25 mg DAILY LIUDMILA Administration Cefepime HCl 1 gm/ Sodium 100 mls @ 200 mls/hr 11/03/19 03:30 11/07/19 03:54 Chloride IVPB 100 mls 0330,1530 LIUDMILA Administration Vancomycin HCl 2 gm/ Sodium 500 mls @ 250 mls/hr 11/06/19 12:00 11/06/19 11: 01 Chloride IVPB 500 mls Q24HR@1200 LIUDMILA Administration Ibuprofen 400 mg 11/06/19 12:36 11/06/19 14:20 Motrin PO 400 mg Q8H PRN Administration pain/fever Losartan Potassium 25 mg 11/03/19 09:00 11/06/19 08:08 Cozaar PO 25 mg DAILY LIUDMILA Administration Ondansetron HCl 4 mg 11/03/19 15:21 11/06/19 21:10 Zofran SLOW IVP 4 mg Q4H PRN Administration Nausea/Vomiting Sodium Chloride 10 ml 11/02/19 21:23 11/03/19 04:37 Flush - Normal Saline IVF 10 ml Q12HR PRN Administration Saline Flush Sodium Chloride 10 ml 11/02/19 21:23 11/04/19 05:55 Flush - Normal Saline IVF 10 ml PRN PRN Administration Saline Flush - Exam General - other findings: morbid obesity Eye: PERRL Neck: no JVD Heart: RRR, no murmur Respiratory: CTAB, no wheezes Gastrointestinal: soft, normal bowel sounds Extremities: 1+ LE edema Skin - other findings: marked decreased areas of erythema in RLE, changes marked and dated Hosp A/P (1) Cellulitis of left lower extremity Code(s): L03.116 - CELLULITIS OF LEFT LOWER LIMB Status: Acute (2) DM type 2 (diabetes mellitus, type 2) Status: Chronic Qualifiers: Diabetes mellitus jail insulin use: with jail use Diabetes mellitus complication status: without complication Qualified Code(s): E11.9 - Type 2 diabetes mellitus without complications; 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 (3) Dyslipidemia Code(s): E78.5 - HYPERLIPIDEMIA, UNSPECIFIED Status: Chronic (4) HTN (hypertension) Code(s): I10 - ESSENTIAL (PRIMARY) HYPERTENSION Status: Chronic Qualifiers: Hypertension type: essential hypertension Qualified Code(s): I10 - Essential (primary) hypertension (5) Morbid obesity Code(s): E66.01 - MORBID (SEVERE) OBESITY DUE TO EXCESS CALORIES Status: Chronic (6) COPD (chronic obstructive pulmonary disease) Status: Suspected (7) Obesity hypoventilation syndrome Code(s): E66.2 - MORBID (SEVERE) OBESITY WITH ALVEOLAR HYPOVENTILATION Status : Suspected - Plan no pos cultures, cont vancomycin, cefipime cont wound care cont accu, etc ASA, statin for pos stress test
[2019-11-07] MEDS ORDERED: Ondansetron PF 4 MG/2 ML Vial IVP PRN (09:59)
[2019-11-07 10:30] LABS: #Eosinphils 0.4 thou/uL (0.0-0.7); #Monocytes 0.9 thou/uL (0.11-0.59); %Basophils 0.1 % (0.0-1.0); %Eosinophils 3.3 % (0.0-10.0); %Lymphocytes 24.5 % (21.0-51.0); %Monocytes 7.1 % (0.0-10.0); %Neutrophils 65.1 % (42.0-75.0); Hemoglobin 9.1 g/dL (12.0-16.0); Mean Corpuscular HGB CONC 32.7 g/dL (32.0-36.0); Mean Corpuscular Hemoglobin 29.3 pg (27.0-31.0); Mean Corpuscular Volume 89.6 fL (78.0-98.0); Mean Platelet Volume 7.1 fL (7.4-10.4); Platelet Count 296 thou/uL (130-400); RBC Distribution Width 12.8 % (11.5-14.5); Red Blood Cell (RBC) Count 3.11 mill/uL (4.20-5.40); White Blood Cell (WBC) Count 12.3 thou/uL (4.8-10.8)
[2019-11-07 11:45] LABS: BUN (Urea Nitrogen) 22 mg/dL (9.8-20.1); Calc. Creatinine Clearance 149 mL/min (70-130); Calcium 8.2 mg/dL (7.8-10.44); Carbon Dioxide 20 mmol/L (22-29); Chloride 106 mmol/L (98-107); Estimated GFR-MDRD 49; Glucose 80 mg/dL (70-105); Sodium 135 mmol/L (136-145)
[2019-11-07] MEDS: Hydrochlorothiazide 25 MG TAB PO SCH (12:31)
[2019-11-07] MEDS: Losartan 25 MG TAB PO SCH (12:31)
[2019-11-07] MEDS: Famotidine 20 MG TAB PO SCH ×2 (12:31→20:23)
[2019-11-07] MEDS: Gabapentin 400 MG CAP PO SCH ×3 (12:31→20:23)
[2019-11-07] MEDS ORDERED: Milk Of Magnesia 30 ML UDCUP PO PRN (13:39)
--- NOTE | 2019-11-07 13:41 | PQF ---
CLINICAL DOCUMENTATION IMPROVEMENT CLARIFICATION FORM: ICD-10 Updated PLEASE DO AN ADDENDUM TO THE PROGRESS NOTE WITH ANY DOCUMENTATION UPDATES OR ADDITIONS AND CARRY THROUGH TO DC SUMMARY. THANK YOU. DATE: 11/07/2019; 11/08/2019 ATTN: Dr. Bernal Please exercise your independent, professional judgment in responding to the clarification form. Clinical indicators are provided on the bottom of this form for your review Please check appropriate box(s): [ x ] Right lower extremity cellulitis due to Diabetes [ ] Right lower extremity cellulitis not due to Diabetes [ ] Other diagnosis [ ] Unable to determine In addition, please specify: Present on Admission (POA): [ x ] Yes [ ] No [ ] Unable to determine For continuity of documentation, please document condition throughout progress notes and discharge summary. Thank You. CLINICAL INDICATORS - SIGNS / SYMPTOMS / LABS / RESULTS AND LOCATION IN EMR H&P 11/02: Right lower extremity cellulitis. Diabetic foot wound. 11/04 (María) Chronic ulcer in bottom aspect of the right fifth metatarsophalangeal joint skin site with associated cellulitis ascending towards the leg and thigh with good vascular supply RISKS: H&P 11/02: PMH: Type 2 diabetes mellitus, on insulin pump. Morbid obesity. Impression: Diabetic foot wound. The pt with chronic wound involving the r foot. Peripheral neuropathy. Hypertension. TREATMENT: MAR: Order 11/03: Maxipime 1 gm IV MAR: Order 11/06 IV Vancomycin HCL 2 gm Thank you, Chloé (This form is maintained as a part of the permanent medical record) 2014 [employer]. All Rights Reserved Chloé Barnes RN, BSN [email or web address] Office: [phone] [facility]
--- NOTE | 2019-11-07 14:10 | PDOC.GSPN ---
Surgery Progress Note: Subj - Subjective Patient reports: no new complaints Narrative: Patient has had the first phase of her bone scan performed and is awaiting the remainder of the test. Wound has been dressed by the wound care team. No fevers for the past 24 hours. We will await findings of bone scan. No new recommendations. Surgery Progress Note: Obj - Vital signs Vital signs: Vital Signs - Most Recent Temp Pulse Resp BP Pulse Ox 97.4 F L 69 20 156/76 H 97 11/07/19 12:00 11/07/19 12:00 11/07/19 12:00 11/07/19 12:00 11/07/19 12:00 Surgery Progress Note: Results - Labs Result Diagrams: 11/07/19 10:19 11/07/19 10:19 Lab results: Laboratory Results - last 24 hr 11/07/19 11/07/19 11/07/19 04:33 06:12 08:51 WBC RBC Hgb Hct MCV MCH MCHC RDW Plt Count MPV Neutrophils % Lymphocytes % Monocytes % Eosinophils % Basophils % Neutrophils # Lymphocytes # Monocytes # Eosinophils # Basophils # Sodium Potassium Chloride Carbon Dioxide BUN Creatinine Estimated GFR (MDRD) Glucose POC Glucose 55 L* 112 H 100 Calcium 11/07/19 11/07/19 11/07/19 10:19 10:19 12:14 WBC 12.3 H RBC 3.11 L Hgb 9.1 L Hct 27.8 L MCV 89.6 MCH 29.3 MCHC 32.7 RDW 12.8 Plt Count 296 MPV 7.1 L Neutrophils % 65.1 Lymphocytes % 24.5 Monocytes % 7.1 Eosinophils % 3.3 Basophils % 0.1 Neutrophils # 8.0 H Lymphocytes # 3.0 Monocytes # 0.9 H Eosinophils # 0.4 Basophils # 0.0 Sodium 135 L Potassium 5.0 Chloride 106 Carbon Dioxide 20 L BUN 22 H Creatinine 1.15 H Estimated GFR (MDRD) 49 Glucose 80 POC Glucose 55 L* Calcium 8.2 11/07/19 12:51 WBC RBC Hgb Hct MCV MCH MCHC RDW Plt Count MPV Neutrophils % Lymphocytes % Monocytes % Eosinophils % Basophils % Neutrophils # Lymphocytes # Monocytes # Eosinophils # Basophils # Sodium Potassium Chloride Carbon Dioxide BUN Creatinine Estimated GFR (MDRD) Glucose POC Glucose 83 Calcium
[2019-11-07] MEDS: Promethazine HCl 25 MG/ML VIAL IM/IV PRN ×2 (15:04→20:56)
--- NOTE | 2019-11-07 17:35 | NM ---
Three-phase bone scan HISTORY: Right foot wound. Prior surgical resection. FINDINGS: Arterial phase imaging shows normal symmetric uptake of the feet. Immediate imaging shows h eterogeneous but symmetric uptake throughout the foot. No focal abnormalities at the fifth metatarsal head. Delayed whole-body images show degenerative type uptake at the knees and especially the feet and ankl es, symmetric in appearance. IMPRESSION: Arthritic changes of the knees, ankles, and feet. No evidence of acute osseous process of the right foot.
[2019-11-07] MEDS: Atorvastatin Calcium 20 MG TAB PO SCH (20:23)
[2019-11-07 21:45] LABS: Anion Gap 14 mmol/L (10-20)
[2019-11-08] MEDS: Acetaminophen/Codeine 30-300mg Tablet PO PRN ×3 (02:21→15:07)
[2019-11-08] MEDS: Promethazine HCl 25 MG/ML VIAL IM/IV PRN ×4 (02:22→22:57)
[2019-11-08] MEDS: Famotidine 20 MG TAB PO SCH ×2 (08:46→20:06)
[2019-11-08] MEDS: Hydrochlorothiazide 25 MG TAB PO SCH (08:47)
[2019-11-08] MEDS: Aspirin 325 MG TAB PO SCH (08:47)
[2019-11-08] MEDS: Cefepime 1 GM in Sodium Chloride 0.9% 100 ML IVPB SCH ×2 (08:47→20:05)
[2019-11-08] MEDS: Gabapentin 400 MG CAP PO SCH ×3 (08:47→20:06)
--- NOTE | 2019-11-08 10:16 | PDOC.HOSPP ---
- Subjective Encounter Date: 11/08/19 Encounter Time: 10:17 Subjective: some pain R leg with ambulation - Objective Vital Signs & Weight: Vital Signs (12 hours) Temp Pulse Resp BP Pulse Ox 11/08/19 07:45 97.7 F 73 18 132/75 94 L 11/08/19 04:16 98.2 F 73 18 129/55 L 95 Weight Admit Weight 366 lb 6.4 oz Weight 367 lb 12.8 oz I&O: 11/07/19 11/08/19 11/09/19 06:59 06:59 06:59 Intake Total 560 Balance 560 Result Diagrams: 11/07/19 10:19 11/07/19 10:19 Additional Labs: Accuchecks 11/08/19 11/07/19 11/07/19 04:17 19:48 18:13 POC Glucose 117 H 111 H 76 11/07/19 11/07/19 11/07/19 15:38 12:51 12:14 POC Glucose 83 83 55 L* Hospitalist ROS - Medication Medications: Active Medications Generic Name Dose Route Start Last Admin Trade Name Freq PRN Reason Stop Dose Admin Acetaminophen 650 mg 11/02/19 21:23 11/06/19 16:21 Tylenol PO 650 mg Q4H PRN Administration Headache/Fever/Mild Pain (1-3) Acetaminophen/Codeine Phosphate 2 tab 11/03/19 00:51 11/08/19 02:21 Tylenol #3 PO 2 tab Q4HR PRN Administration Pain Aspirin 325 mg 11/08/19 09:00 11/08/19 08:47 Aspirin PO 325 mg DAILY LIUDMILA Administration Atorvastatin Calcium 20 mg 11/03/19 21:00 11/07/19 20:23 Lipitor PO 20 mg HS LIUDMILA Administration Docusate Sodium 100 mg 11/03/19 15:22 11/05/19 20:56 Colace PO 100 mg DAILYPRN PRN Administration Constipation Famotidine 20 mg 11/03/19 21:00 11/08/19 08:46 Pepcid PO 20 mg Q12HR LIUDMILA Administration Gabapentin 800 mg 11/03/19 09:00 11/08/19 08:47 Neurontin PO 800 mg TID LIUDMILA Administration Hydralazine HCl 5 mg 11/02/19 22:44 11/02/19 22:53 Apresoline SLOW IVP 5 mg Q4H PRN Administration SBP Greater Than 180 Hydrochlorothiazide 25 mg 11/03/19 09:00 11/08/19 08:47 Hydrochlorothiazide PO 25 mg DAILY LIUDMILA Administration Vancomycin HCl 2 gm/ Sodium 500 mls @ 250 mls/hr 11/06/19 12:00 11/07/19 12: 38 Chloride IVPB 500 mls Q24HR@1200 LIUDMILA Administration Cefepime HCl 1 gm/ Sodium 100 mls @ 200 mls/hr 11/07/19 20:00 11/08/19 08:47 Chloride IVPB 100 mls 0800,2000 LIUDMILA Administration Ibuprofen 400 mg 11/06/19 12:36 11/06/19 14:20 Motrin PO 400 mg Q8H PRN Administration pain/fever Metoprolol Succinate 25 mg 11/08/19 09:00 11/08/19 08:48 Toprol Xl PO 25 mg DAILY LIUDMILA Administration Promethazine HCl 25 mg 11/07/19 13:38 11/08/19 08:46 Phenergan IM/IV 12.5 mg Q6H PRN Administration Nausea/Vomiting Sodium Chloride 10 ml 11/02/19 21:23 11/03/19 04:37 Flush - Normal Saline IVF 10 ml Q12HR PRN Administration Saline Flush Sodium Chloride 10 ml 11/02/19 21:23 11/04/19 05:55 Flush - Normal Saline IVF 10 ml PRN PRN Administration Saline Flush - Exam General Appearance: awake alert Neck: no JVD Heart: RRR, no murmur Respiratory: CTAB Gastrointestinal: soft, normal bowel sounds Extremities: 1+ LE edema Skin - other findings: decreasing erythema R leg Hosp A/P (1) Cellulitis of left lower extremity Code(s): L03.116 - CELLULITIS OF LEFT LOWER LIMB Status: Acute (2) DM type 2 (diabetes mellitus, type 2) Status: Chronic Qualifiers: Diabetes mellitus hospital carrier insulin use: with hospital carrier use Diabetes mellitus complication status: without complication Qualified Code(s): E11.9 - Type 2 diabetes mellitus without complications; 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 (3) Dyslipidemia Code(s): E78.5 - HYPERLIPIDEMIA, UNSPECIFIED Status: Chronic (4) HTN (hypertension) Code(s): I10 - ESSENTIAL (PRIMARY) HYPERTENSION Status: Chronic Qualifiers: Hypertension type: essential hypertension Qualified Code(s): I10 - Essential (primary) hypertension (5) Morbid obesity Code(s): E66.01 - MORBID (SEVERE) OBESITY DUE TO EXCESS CALORIES Status: Chronic (6) COPD (chronic obstructive pulmonary disease) Status: Suspected (7) Obesity hypoventilation syndrome Code(s): E66.2 - MORBID (SEVERE) OBESITY WITH ALVEOLAR HYPOVENTILATION Status : Suspected - Plan bone scan- no evidence for osteomyelitis cont iv antibx wound care
[2019-11-08 11:27] LABS: Vancomycin, Trough 18.8 ug/mL
[2019-11-08 13:52] VITALS: BMI 57.6
--- NOTE | 2019-11-08 14:10 | PDOC.GSPN ---
Surgery Progress Note: Subj - Subjective Narrative: Patient is feeling better. No recent fevers. Bone scan was negative for osteomyelitis in the foot. She will need follow-up in the outpatient wound care clinic and offloading, and can follow up with Dr. Ibarar as needed in his clinic as she is an established patient of his. Surgery Progress Note: Obj - Vital signs Vital signs: Vital Signs - Most Recent Temp Pulse Resp BP Pulse Ox 97.6 F 73 18 141/65 H 95 11/08/19 10:56 11/08/19 10:56 11/08/19 10:56 11/08/19 10:56 11/08/19 10:56 Surgery Progress Note: Results - Labs Result Diagrams: 11/07/19 10:19 11/07/19 10:19 Lab results: Laboratory Results - last 24 hr 11/08/19 11/08/19 11/08/19 04:17 10:56 10:57 POC Glucose 117 H 96 Vancomycin Trough 18.8
--- NOTE | 2019-11-08 16:52 | PRG ---
DATE OF SERVICE: 11/08/2019 SUBJECTIVE: The patient is downstairs for TCOM measurement. Apparently, she has been doing well and inflammatory process has improved markedly. OBJECTIVE: VITAL SIGNS: Normal. Mild elevation of systolic blood pressure. LABORATORY DATA: White cell count last time checked was 12.[address] again did not show any evidence of osteolysis. The bone scan did not show any evidence of bone involvement, just arthritis, and unfortunately we do not have any microbiology input. ASSESSMENT AND DISCUSSION: Type 2 diabetes with obesity and osteoarthritis and chronic ulcer at the bottom aspect of the right fifth MPJ skin site with no evidence of osteomyelitis, patient could not have an MRI done due to weight, so we staged her infection with CT and bone scan. Those did not show bone involvement. The organisms typically involved in this sort of process include gram-negative rods, Staphylococcus aureus/methicillin-resistant Staphylococcus aureus, streptococci. We will treat her with quinolone like ciprofloxacin plus Augmentin. She probably would need treatment for another 2 or 3 weeks. Since we do not have the culture information, there is concern with possible recrudescence of infection once she is transitioned to oral antimicrobials. Job ID: [id number]
[2019-11-08] MEDS: Atorvastatin Calcium 20 MG TAB PO SCH (20:06)
[2019-11-09] MEDS: Cefepime 1 GM in Sodium Chloride 0.9% 100 ML IVPB SCH ×2 (09:02→20:35)
[2019-11-09] MEDS: Promethazine HCl 25 MG in Sodium Chloride 0.9% 50 ML IVPB PRN ×3 (09:43→22:35)
--- NOTE | 2019-11-09 11:25 | PDOC.HOSPP ---
- Subjective Encounter Date: 11/09/19 Encounter Time: 08:20 Subjective: no sob or palp is amb in room - Objective Vital Signs & Weight: Vital Signs (12 hours) Temp Pulse Resp BP Pulse Ox 11/09/19 08:00 95 11/09/19 07:49 97.6 F 72 20 127/74 95 Weight Admit Weight 366 lb 6.4 oz Weight 367 lb 12.8 oz I&O: 11/08/19 11/09/19 11/10/19 06:59 06:59 06:59 Intake Total 560 830 Balance 560 830 Result Diagrams: 11/07/19 10:19 11/07/19 10:19 Additional Labs: Accuchecks 11/09/19 11/08/19 11/08/19 05:11 20:51 19:30 POC Glucose 106 83 59 L* 11/08/19 10:57 POC Glucose 96 Hospitalist ROS - Medication Medications: Active Medications Generic Name Dose Route Start Last Admin Trade Name Freq PRN Reason Stop Dose Admin Acetaminophen 650 mg 11/02/19 21:23 11/06/19 16:21 Tylenol PO 650 mg Q4H PRN Administration Headache/Fever/Mild Pain (1-3) Acetaminophen/Codeine Phosphate 2 tab 11/03/19 00:51 11/08/19 15:07 Tylenol #3 PO 2 tab Q4HR PRN Administration Pain Aspirin 325 mg 11/08/19 09:00 11/08/19 08:47 Aspirin PO 325 mg DAILY LIUDMILA Administration Atorvastatin Calcium 20 mg 11/03/19 21:00 11/08/19 20:06 Lipitor PO 20 mg HS LIUDMILA Administration Docusate Sodium 100 mg 11/03/19 15:22 11/05/19 20:56 Colace PO 100 mg DAILYPRN PRN Administration Constipation Famotidine 20 mg 11/03/19 21:00 11/08/19 20:06 Pepcid PO 20 mg Q12HR LIUDMILA Administration Gabapentin 800 mg 11/03/19 09:00 11/08/19 20:06 Neurontin PO 800 mg TID LIUDMILA Administration Hydralazine HCl 5 mg 11/02/19 22:44 11/02/19 22:53 Apresoline SLOW IVP 5 mg Q4H PRN Administration SBP Greater Than 180 Hydrochlorothiazide 25 mg 11/03/19 09:00 11/08/19 08:47 Hydrochlorothiazide PO 25 mg DAILY LIUDMILA Administration Vancomycin HCl 2 gm/ Sodium 500 mls @ 250 mls/hr 11/06/19 12:00 11/08/19 11: 47 Chloride IVPB 500 mls Q24HR@1200 LIUDMILA Administration Cefepime HCl 1 gm/ Sodium 100 mls @ 200 mls/hr 11/07/19 20:00 11/09/19 09:02 Chloride IVPB 100 mls 0800,2000 LIUDMILA Administration Promethazine HCl 25 mg/ Sodium 51 mls @ 204 mls/hr 11/09/19 09:07 11/09/19 09 :43 Chloride IVPB 51 mls Q6H PRN Administration Nausea/Vomiting Ibuprofen 400 mg 11/06/19 12:36 11/06/19 14:20 Motrin PO 400 mg Q8H PRN Administration pain/fever Metoprolol Succinate 25 mg 11/08/19 09:00 11/08/19 08:48 Toprol Xl PO 25 mg DAILY LIUDMILA Administration Promethazine HCl 25 mg 11/07/19 13:38 11/08/19 22:57 Phenergan IM/IV 25 mg Q6H PRN Administration Nausea/Vomiting Sodium Chloride 10 ml 11/02/19 21:23 11/03/19 04:37 Flush - Normal Saline IVF 10 ml Q12HR PRN Administration Saline Flush Sodium Chloride 10 ml 11/02/19 21:23 11/04/19 05:55 Flush - Normal Saline IVF 10 ml PRN PRN Administration Saline Flush - Exam General Appearance: awake alert Eye: PERRL, anicteric sclera ENT: no oropharyngeal lesions, moist mucosa Neck: supple, no JVD Heart: RRR, no murmur Respiratory: no wheezes, no rales Gastrointestinal: soft, non-tender, non-distended, normal bowel sounds Extremities: no cyanosis, no edema Neurological: cranial nerve grossly intact, no focal deficits Psychiatric: normal affect, A&O x 3 Hosp A/P (1) Cellulitis of left lower extremity Code(s): L03.116 - CELLULITIS OF LEFT LOWER LIMB Status: Acute (2) DM type 2 (diabetes mellitus, type 2) Status: Chronic Qualifiers: Diabetes mellitus usp insulin use: with exterminator helper termite use Diabetes mellitus complication status: without complication Qualified Code(s): E11.9 - Type 2 diabetes mellitus without complications; Z79.4 - residential (current) use of insulin (3) Dyslipidemia Code(s): E78.5 - HYPERLIPIDEMIA, UNSPECIFIED Status: Chronic (4) HTN (hypertension) Code(s): I10 - ESSENTIAL (PRIMARY) HYPERTENSION Status: Chronic Qualifiers: Hypertension type: essential hypertension Qualified Code(s): I10 - Essential (primary) hypertension (5) Morbid obesity Code(s): E66.01 - MORBID (SEVERE) OBESITY DUE TO EXCESS CALORIES Status: Chronic (6) COPD (chronic obstructive pulmonary disease) Status: Suspected (7) Obesity hypoventilation syndrome Code(s): E66.2 - MORBID (SEVERE) OBESITY WITH ALVEOLAR HYPOVENTILATION Status : Suspected - Plan hemostable has septal reversible defect small area with apical scar, bmi is 57, unclear if these are true areas of isch is on vanc, cefepime for left LE cellulitis she manages her dm, has insulin pump with basal rate and gives bolus dosing based on carb intake, counselled to lower dose of bolus insulins. continue cozaar, hctz, lipitor and neurontin to amb in hallway as tolerated, oob to chair dc antibiotics will be augmentin and cipro for 3 weeks will have outpt cath after cellulitis resolves per cardiology. DC plan in am
[2019-11-09] MEDS: Gabapentin 400 MG CAP PO SCH ×3 (12:28→20:35)
[2019-11-09] MEDS: Famotidine 20 MG TAB PO SCH ×2 (12:28→20:35)
[2019-11-09] MEDS: Aspirin 325 MG TAB PO SCH (12:28)
[2019-11-09] MEDS: Hydrochlorothiazide 25 MG TAB PO SCH (12:29)
[2019-11-09] MEDS: Acetaminophen/Codeine 30-300mg Tablet PO PRN ×2 (12:36→20:36)
[2019-11-09] MEDS: Atorvastatin Calcium 20 MG TAB PO SCH (20:35)
[2019-11-10] MEDS: Acetaminophen/Codeine 30-300mg Tablet PO PRN (02:04)
[2019-11-10] MEDS: Promethazine HCl 25 MG in Sodium Chloride 0.9% 50 ML IVPB PRN (04:31)
[2019-11-10 07:14] VITALS: BP 137/72; TEMP 97.8
[2019-11-10] MEDS: Aspirin 325 MG TAB PO SCH (08:25)
[2019-11-10] MEDS: Famotidine 20 MG TAB PO SCH (08:25)
[2019-11-10] MEDS: Hydrochlorothiazide 25 MG TAB PO SCH (08:25)
[2019-11-10] MEDS: Gabapentin 400 MG CAP PO SCH (08:25)
[2019-11-10] MEDS: Cefepime 1 GM in Sodium Chloride 0.9% 100 ML IVPB SCH (08:25)
[2019-11-10 11:28] LABS: Vancomycin, Trough 18.9 ug/mL
--- NOTE | 2019-11-10 11:46 | EKG ---
Test Reason : Blood Pressure : / mmHG Vent. Rate : 084 BPM Atrial Rate : 084 BPM P-R Int : 150 ms QRS Dur : 096 ms QT Int : 390 ms P-R-T Axes : 042 -14 063 degrees QTc Int : 460 ms Normal sinus rhythm Normal ECG Confirmed by ALEENA PERDOMO ([id number]), research editor LUCI GAINES ([id number]) on 11/10/2019 11:46:03 AM Referred By: Confirmed By:ALEENA PERDOMO
--- NOTE | 2019-11-10 18:33 | DIS ---
DATE OF ADMISSION: 11/02/2019 DATE OF DISCHARGE: 11/10/2019 DISCHARGE DISPOSITION: Home. PRIMARY DISCHARGE DIAGNOSIS: Right lower extremity cellulitis. SECONDARY DISCHARGE DIAGNOSES: 1. Diabetes mellitus type 2. 2. Dyslipidemia. 3. Hypertension. 4. Morbid obesity. 5. Chronic obstructive pulmonary disease. 6. Suspected obesity hypoventilation syndrome and obstructive sleep apnea, to have outpatient sleep study. PROCEDURES DONE DURING HOSPITALIZATION: The patient has had a nuclear stress test done which showed small scar at the left ventricular apex with low grade septal reversible ischemia and normal ejection fraction of 57%. Echo with 2D Doppler showed ejection fraction of 55% to 60%. with grade 2/[address] angio chest showed no evidence of PE. Splenomegaly was seen up to 15.8 cm. Gallbladder was surgically absent. Ultrasound venous Doppler of right lower extremity done showed no evidence of DVT. There is edema within the soft tissues of the medial right thigh, which may reflect cellulitis. There is enlarged lymph node in the right inguinal region suspicious for reactive lymphadenopathy. 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 No destructive osteolytic lesion was seen. There is diffuse osteopenia. The right lower extremity CAT scan with IV contrast done showed fat stranding/edema within the subcutaneous tissues of the right leg and foot which is fairly mild. No soft tissue gas was seen. Three-phase bone scan of the right foot and wound showed arthritic changes of the knees, ankles and feet. No evidence of acute osseous process of the right foot. Influenza A and B antigens are negative. Blood cultures x2 taken on the 10th of this month showed no growth after five days. Had a white count of 13 on the day of admission. H and H 10 and 31 platelet count 205 with 77% neutrophils and 6% bands. BUN 22, creatinine 1.1 on the 15th. Total cholesterol 178, triglycerides 153, LDL 117, HDL 30. BNP was 95. DISCHARGE MEDICATIONS: 1. Gabapentin 800 mg p.o. 3 times daily. 2. Tylenol No. 3 two tablets p.o. q.4 hourly p.r.n. 3. Hydrochlorothiazide 25 mg p.o. daily. 4. NovoLog insulin pump. 5. Zocor 40 mg p.o. at bedtime. 6. Augmentin 875 mg p.o. twice daily for 16 days. 7. Ciprofloxacin 500 mg p.o. twice daily for 16 days. 8. Aspirin 325 mg p.o. daily. 9. Toprol-XL 25 mg p.o. daily. 10. Motrin p.r.n. for pain. ALLERGIES: TAHMINA INHIBITORS, KETOROLAC, ULTRAM AND LATEX. INPATIENT CONSULT: Dr. Dean for Cardiology, Dr. Daniel for Infectious Disease, Dr. Taveras for General Surgery. DISCHARGE PLAN: The patient to follow up with Dr. Daniel in 2 weeks and she needs to follow up with her primary care physician Dr. Ilana Carvajal in 1 week. BRIEF COURSE DURING HOSPITALIZATION: The patient initially got admitted on the with complaints of right lower extremity redness and swelling and also generalized muscle aches and chills. She also complained of shortness of breath and chest pain with exertion. In view of this history, she was initially placed under observation on telemetry. She has had a nuclear stress test done which showed small scar of the left ventricular apex with low-grade septal reversible ischemia. She has had consultation with Dr. Dean for cardiology. In view of the patient's right lower extremity cellulitis with sepsis, further workup of cardiology was deferred at present. She would have outpatient cardiac catheterization when her current right lower extremity cellulitis resolves and Dr. Dean's office will call her for the same. The patient also weighs nearly 367 pounds with BMI of 57.6. There was initial suspicion of possible osteomyelitis with the patient having a small wound on the right plantar aspect leading up to cellulitis in the right lower extremity. She has had consultation with Dr. Daniel and Dr. Taveras. The patient could not fit in the MRI scanner due to her weight. She has had a CT scan of the right lower extremity with contrast and a bone scan done, both of which have ruled out osteomyelitis. She has had a bedside examination done by Dr. Taveras, which showed no clinical evidence of osteomyelitis. In view of this, she was placed on IV antibiotics and was transitioned to Augmentin and ciprofloxacin for further 16 days. She needs to see Dr. Daniel in 2 weeks prior to discontinuing antibiotics. The patient also will follow up with Dr. Dean for outpatient coronary angiogram and she will be called by their office. She is hemodynamically stable, ambulating and eating well prior to discharge. Please note, the patient manages her diabetes with insulin pump with basal rate and bolus dosing based on her carb intake. Please note I have seen and examined the patient on the day of discharge. Job ID: [id number]
== END 2019-11-10 14:35 | disposition home or self-care (01) | DRG 638 ==
LOC: ERS 17:05 → 2SW 21:29 → OBSVTOIN 21:29 → T4-A 11-06 15:58
PROVIDERS: ADMIT Internal Medicine; ATTEND Internal Medicine
DX: E11.628 Type 2 diabetes mellitus with other skin complications (principal); E66.2 Morbid (severe) obesity with alveolar hypoventilation; Z68.43 Body mass index [BMI] 50.0-59.9, adult; L03.115 Cellulitis of right lower limb; E11.42 Type 2 diabetes mellitus with diabetic polyneuropathy; R16.1 Splenomegaly, not elsewhere classified; R59.1 Generalized enlarged lymph nodes; J44.9 Chronic obstructive pulmonary disease, unspecified; E78.5 Hyperlipidemia, unspecified; I10 Essential (primary) hypertension; I25.10 Atherosclerotic heart disease of native coronary artery without angina pectoris; L97.519 Non-pressure chronic ulcer of other part of right foot with unspecified severity; R07.89 Other chest pain; B95.62 Methicillin resistant Staphylococcus aureus infection as the cause of diseases classified elsewhere; Z98.51 Tubal ligation status; Z90.49 Acquired absence of other specified parts of digestive tract; Z89.421 Acquired absence of other right toe(s); Z83.3 Family history of diabetes mellitus; Z84.89 Family history of other specified conditions; Z79.4 Long term (current) use of insulin; Z88.6 Allergy status to analgesic agent; Z88.8 Allergy status to other drugs, medicaments and biological substances
CPT/HCPCS: 36415; 36416; 71275; 78315; 78452; 80048; 80061; 80202; 82553; 84484; 85025; 87804; 93005; 93017; 93306; 94640; 96365; 96375; A9500; A9503; J0360; J0692; J2270; J2405; J2550; J2785; J3010; J3370; J3490; J7050; J7620; Q9967; S0028

== ENCOUNTER 2019-12-27 21:35 | Inpatient (IN) | payer OTHER ==
[2019-12-27] MEDS ORDERED: Metoclopramide HCl 10 MG/2 ML VIAL ONE (23:18)
[2019-12-28 00:11] LABS: CKMB 8.5 ng/mL (0-6.6)
[2019-12-28] MEDS ORDERED: Aspirin Chewable 81 MG TAB ONE (00:44)
[2019-12-28] MEDS ORDERED: Nitroglycerin 2% Ointment 1 INCH/1 GM Packet ONE (00:44)
[2019-12-28] MEDS ORDERED: Enoxaparin Sodium 80 MG/0.8 ML SYRINGE ONE (00:44)
[2019-12-28] MEDS ORDERED: Enoxaparin Sodium 100 MG/ML SYRINGE ONE (00:44)
[2019-12-28 03:01] LABS: Critical Call Chem Troponin I RESULT DECREASING
[2019-12-28 03:19] LABS: CKMB 5.5 ng/mL (0-6.6)
[2019-12-28] MEDS: Acetaminophen 325 MG TAB PO PRN ×2 (04:26→12:43)
[2019-12-28] MEDS: Sodium Chloride 0.45% 1,000 ML IV SCH (04:26)
[2019-12-28 07:25] LABS: #Basophils 0.1 thou/uL (0.0-0.2); #Eosinphils 0.1 thou/uL (0.0-0.7); #Lymphocytes 1.9 thou/uL (1.20-3.40); #Monocytes 0.7 thou/uL (0.11-0.59); #Neutrophils 12.9 thou/uL (1.40-6.50); %Basophils 0.5 % (0.0-1.0); %Eosinophils 0.4 % (0.0-10.0); %Lymphocytes 11.9 % (21.0-51.0); %Monocytes 4.7 % (0.0-10.0); %Neutrophils 82.4 % (42.0-75.0); Hemoglobin 8.9 g/dL (12.0-16.0); Mean Corpuscular HGB CONC 32.9 g/dL (32.0-36.0); Mean Corpuscular Hemoglobin 29.7 pg (27.0-31.0); Mean Corpuscular Volume 90.3 fL (78.0-98.0); Mean Platelet Volume 8.5 fL (7.4-10.4); Platelet Count 178 thou/uL (130-400); RBC Distribution Width 13.3 % (11.5-14.5); Red Blood Cell (RBC) Count 2.98 mill/uL (4.20-5.40); White Blood Cell (WBC) Count 15.7 thou/uL (4.8-10.8)
[2019-12-28 07:46] LABS: Anion Gap 12 mmol/L (10-20); BUN (Urea Nitrogen) 26 mg/dL (9.8-20.1); Calc. Creatinine Clearance 149 mL/min (70-130); Calcium 8.2 mg/dL (7.8-10.44); Carbon Dioxide 20 mmol/L (22-29); Chloride 108 mmol/L (98-107); Estimated GFR-MDRD 49; Glucose 118 mg/dL (70-105); Potassium 4.5 mmol/L (3.5-5.1); Sodium 135 mmol/L (136-145)
--- NOTE | 2019-12-28 08:11 | CT ---
PRELIMINARY REPORT/[facility]/EMERGENCY AFTER HOURS PROCEDURE: PROCEDURE: CTA Chest with IV Contrast Material . HISTORY: Cough and congestion. TECHNIQUE: Axial images were performed with multiplanar and 3-D (maximum intensity projection and imelda face-shaded) reconstructions. The patient was given iodinated nonionic IV contrast . COMPARISON: None . FINDINGS: Normal aorta with no atherosclerosis, aneurysm, or dissection. Poor opacification of the pulmonary arterial system with contrast with the main pulmonary artery leonel uring 178 Hounsfield units with no obvious clot. Scattered prominent mediastinal and hilar lymph nodes with the largest in the paratracheal region catina suring 1.5 cm. Heart size upper limits of normal with no pericardial fluid. Patchy consolidation both lower lobes and RIGHT upper lobe consistent with pneumonia. Mild linear sc ar versus discoid atelectasis lung bases. No pleural fluid or pulmonary masses. Visualized upper abdomen shows previous cholecystectomy. Splenomegaly at 17.0 cm. No acute bony abnormality. IMPRESSION: Poor opacification of the pulmonary arterial system with contrast with no obvious clot. Bilateral pneumonia. Heart size upper limits of normal. Splenomegaly. ELECTRONICALLY SIGNED BY: Denton Booth MD Dec 28, 2019 12:49:54 AM [employer] This report is intended for review by the ordering physician only, in accordance of law. If you recei ve this report in error, please call [facility] at [phone]. FINAL REPORT EMERGENCY AFTER HOURS CT ANGIOGRAM CHEST: DATE: 12/28/2019 FINDINGS/IMPRESSION: Less than optimal pulmonary artery opacification. Consolidated parenchymal changes in right lung and left lower lobe, evidence for bilateral pneumonia. Minimal mediastinal lymphadenopathy up to 1.5 cm. Splenomegaly. No convincing CT evidence for acute pulmonary embolism, particularly in the central pul monary arteries with less than optimal imaging of the more peripheral pulmonary arteries. Lymph nodes appear little changed from the prior 11/02/2019 study. This report is in agreement with preliminary report by [facility].
[2019-12-28] MEDS ORDERED: cefTRIAXone\\ROCEPHIN 1 GM in Sodium Chloride 0.9% 100 ML IVPB SCH (09:00)
[2019-12-28] MEDS ORDERED: Aspirin Chewable 81 MG TAB PO SCH (09:00)
[2019-12-28] MEDS ORDERED: Azithromycin 500 MG in Sodium Chloride 0.9% 250 ML 250 ML IVPB SCH (09:00)
[2019-12-28] MEDS ORDERED: Ondansetron PF 4 MG/2 ML Vial SLOW IVP PRN (12:27)
[2019-12-28] MEDS ORDERED: Ondansetron PF 4 MG/2 ML Vial SLOW IVP SCH (12:30)
[2019-12-28] MEDS: Enoxaparin Sodium 100 MG/ML SYRINGE SC SCH ×2 (12:53→21:12)
[2019-12-28] MEDS ORDERED: HumaLOG 300 UNITS/3 ML VIAL SC PRN ×3 (13:18→22:03)
[2019-12-28] MEDS ORDERED: Dextrose 50% Abboject 50 ML SYRINGE IVP PRN (13:18)
[2019-12-28] MEDS ORDERED: Dextrose 5% in Water 1,000 ML IV PRN ×2 (13:18→22:03)
[2019-12-28] MEDS ORDERED: Gabapentin 300 MG CAP PO SCH (14:30)
--- NOTE | 2019-12-28 18:53 | PDOC.HHP ---
Hospitalist HPI - History of Present Illness shortness of breath, cough History of Present Illness: THis is a 54 year old female with past medical history of hypertension, peripheral artery disease, diabetes who presented to the emergency room with shortness of breath. The patient states Tuesday night her nose was itching and thought it was allergies. Yesterday she had fever of 102, chills, shortness of breath at rest and while walking. She also had an episode of chest pain that felt like a lightning striking her that radiated to her throat. She has not had any reoccurrence of chest pain. Her shortness of breath persisted however and she decided to come to the ER. She reports palpitations and some dizziness while standing. She also developed abdominal pain today in the epigastric area that was nonradiating and associated with two episodes of vomiting. She had diarrhea that started at 3 am that resolved by 12:30 this afternoon. She reports having about 10-11 brown stools. She denies eating anything unusual or any recent travel. ED Course: In the ER the patient had WBC of 15.7. CTA showed bilateral pneumonia and some lymphadenopathy. Hospitalist ROS - Review of Systems Constitutional: reports: fever. denies: chills Eyes: denies: pain, vision change ENT: denies: ear discharge Respiratory: reports: cough, dry, shortness of breath Cardiovascular: denies: chest pain, palpitations, orthopnea, paroxysmal noc. dyspnea Gastrointestinal: reports: abdominal pain, diarrhea (resolved). denies: nausea , vomiting Genitourinary: denies: dysuria, frequency, incontinence Musculoskeletal: denies: neck pain, shoulder pain, arm pain - Medication Medications: Active Medications Generic Name Dose Route Start Last Admin Trade Name Freq PRN Reason Stop Dose Admin Acetaminophen 650 mg 12/28/19 04:16 12/28/19 12:43 Tylenol PO 650 mg Q4H PRN Administration Headache/Fever or Pain Albuterol/Ipratropium 3 ml 12/28/19 04:16 12/28/19 04:30 Duoneb NEB 3 ml [id number] PRN Administration SOB &/or Wheezing Enoxaparin Sodium 170 mg 12/28/19 09:00 12/28/19 12:53 Lovenox SC Not Given 0900,2100 LIUDMILA Sodium Chloride 1,000 mls @ 50 mls/hr 12/28/19 03:45 12/28/19 04:26 1/2 Normal Saline IV 1,000 mls .Q20H LIUDMILA Administration Insulin Human Lispro 0 units 12/28/19 13:18 12/28/19 17:53 Humalog SC 5 units .MILD SLIDING SCALE PRN Administration MILD SLIDING SCALE Protocol Sodium Chloride 10 ml 12/28/19 09:00 12/28/19 15:51 Flush - Normal Saline IVF Not Given Q12HR [facility] Hospitalist History - Past Medical History Other Medical History: Hyperlipidemia Peripheral Artery disease Diabetes Hypertension - Past Surgical History Other Surgical History: 5 C sections Tubal ligation Gallbladder surgery Bone from toe removed - Family History Other Family History: Mother had diabetes Dad of stroke Mom of uterine cancer - Social History Smoking Status: Never smoker Alcohol: reports: None Drugs: reports: none - Exam General Appearance: NAD, awake alert General - other findings: Morbidly obese Eye: PERRL, anicteric sclera ENT: normocephalic atraumatic, no oropharyngeal lesions Neck: supple, no JVD Heart: RRR, no murmur, no gallops, no rubs Respiratory: CTAB, no rales, no ronchi Respiratory - other findings: wheezing, diminished breath sounds Gastrointestinal: soft, non-distended, normal bowel sounds Gastrointestinal - other findings: mild epigastric tenderness Extremities: no cyanosis, no clubbing, no edema, 1+ LE edema Skin: normal turgor, no lesions, no rashes Neurological: cranial nerve grossly intact, normal sensation to touch, no focal deficits, no new deficit Musculoskeletal: normal tone, normal strength, no muscle wasting Hospitalist Results - Labs Result Diagrams: 12/28/19 07:16 12/28/19 07:16 Lab results: WBC 15.7 thou/uL (4.8-10.8) H 12/28/19 07:16 Hgb 8.9 g/dL (12.0-16.0) L 12/28/19 07:16 Hct 26.9 % (36.0-47.0) L 12/28/19 07:16 MCV 90.3 fL (78.0-98.0) 12/28/19 07:16 Plt Count 178 thou/uL (130-400) 12/28/19 07:16 Neutrophils % 82.4 % (42.0-75.0) H 12/28/19 07:16 Sodium 135 mmol/L (136-145) L 12/28/19 07:16 Potassium 4.5 mmol/L (3.5-5.1) 12/28/19 07:16 Chloride 108 mmol/L (98-107) H 12/28/19 07:16 Carbon Dioxide 20 mmol/L (22-29) L 12/28/19 07:16 BUN 26 mg/dL (9.8-20.1) H 12/28/19 07:16 Creatinine 1.15 mg/dL (0.6-1.1) H 12/28/19 07:16 Glucose 118 mg/dL (70-105) H 12/28/19 07:16 Calcium 8.2 mg/dL (7.8-10.44) 12/28/19 07:16 CK-MB (CK-2) 5.5 ng/mL (0-6.6) 12/28/19 02:33 Troponin I 3.563 ng/mL (< 0.028) H* 12/28/19 02:33 B-Natriuretic Peptide 493.8 pg/mL (0-100) H 12/27/19 23:16 Hospitalist H&P A/P - Plan Plan: THis is a 54 year old female patient with past medical history of hypertension, peripheral vascular disease who presented with fevers, chills, shortness of breath, found to have bilateral pneumonia #Sepsis secondary to pneumonia #Acute bronchitis - blood culture pending. CT scan showed bilateral pneumonia. Continue IV ceftriaxone and azithromycin - will add solumedrol due to wheezing. Mucinex, standing duonebs and albuterol #Abdominal pain - possibly gastroenteritis #Diarrhea - check respiratory viral panel to rule out flu given concomitant respiratory symptoms - C diff negative #Elevated troponin- possibly type II NSTEMI - troponin was 4 and came down to 3. Cardiology consulted, recommended continuing full dose lovenox - no need for heart cath at this time - ECHO pending Peripheral edema - check ECHO - recent US in October showed no DVT Type II diabetes with neuropathy - resume patient's home insulin pump - aggressive sliding scale - continue gabapentin Anemia - stable, will monitor CKD - creatinine 1.15, stable Code status: full code
[2019-12-28] MEDS ORDERED: Albuterol Sulfate 1.25 MG/3 ML NEB NEB PRN (18:58)
[2019-12-28] MEDS ORDERED: guaiFENesin ER 600 MG TAB PO SCH (19:15)
[2019-12-28] MEDS ORDERED: Insulin Regular 300 UNITS/3 ML VIAL FS SCH (20:00)
--- NOTE | 2019-12-28 21:01 | CON ---
DATE OF CONSULTATION: 12/28/2019 PRIMARY OPERATING ENGINEER APPRENTICE: Vasile Miramontes MD REASON FOR CONSULTATION: Elevated troponin. HISTORY OF PRESENT ILLNESS: Ms. Cain is a very pleasant 54-year-old white female, who comes to the hospital for cough and green phlegm. She had a temperature of 102 at home with cough, shortness of breath, showed up and had a CT per PE protocol, that showed bilateral infiltrates consistent with pneumonia. Her temperature in the ER was 102.9, and on the floor, her max temperature has been 100.3. She was admitted for this, and troponins were trended. Initial troponin was 3.5 with a normal CK-MB, so Cardiology has been consulted for this. On my evaluation, Ms. Cain denies any chest pain, tightness, or pressure, only shortness of breath and cough. PAST MEDICAL HISTORY: 1. Type-2 diabetes. 2. Peripheral neuropathy. 3. Fibromyalgia. 4. Gastroparesis. 5. Hypertension. 6. Bronchial asthma. 7. Morbid obesity. 8. MAME. 9. Hyperlipidemia. 10. Osteoarthritis of the knees. PAST SURGICAL HISTORY: 1. Tubal ligation. 2. Cholecystectomy. 3. . 4. Right foot bone removal adjacent to 5th toe. SOCIAL HISTORY: No alcohol, tobacco, or drugs. OUTPATIENT MEDICATIONS: 1. Gabapentin 600 mg b.i.d. 2. Zocor 40 mg at bedtime. 3. Toprol-XL 25 mg a day. 4. NovoLog. 5. Ibuprofen. 6. Hydrochlorothiazide 25 mg a day. 7. Furosemide daily. 8. Aspirin 325 a day. ALLERGIES: 1. TAHMINA INHIBITORS. 2. KETOROLAC. 3. TRAMADOL. 4. LATEX. REVIEW OF SYSTEMS: A 12-point review of systems was done and was all negative unless stated in the history of present illness. FAMILY HISTORY: Noncontributory. PHYSICAL EXAMINATION: VITAL SIGNS: Temperature max of 102.9, pulse 76, respiratory rate 18, saturating 100% on 4 L, blood pressure 143/70. GENERAL: Awake, alert, and oriented x3. No distress. HEENT: Normocephalic, atraumatic. NECK: Supple. LUNGS: Clear, but distant lung sounds. CARDIOVASCULAR: S1 and S2. No S3 or S4. ABDOMEN: Soft. Positive bowel sounds. EXTREMITIES: 1+ edema. SKIN: Warm and dry. LABORATORY AND DIAGNOSTIC DATA: Laboratory work was reviewed. White count of 15, hemoglobin of 8.9, hematocrit of 26, platelet count of 178. Chemistry; sodium 135, chloride 108, carbon dioxide of 20, anion gap of 12, BUN of 26, creatinine of 1.15. Troponin initially was 4.5 down to 3.5 and a BNP of 493. EKG was reviewed. CT of the chest reviewed. ASSESSMENT: 1. Bilateral pneumonias. 2. Type-2 type of KS, most likely this is related to her pneumonia. 3. Morbid obesity. PLAN: 1. Continue conservative therapy for now. 2. Treat pneumonia per Primary Team. 3. She has no symptoms of an acute coronary syndrome. I agree with full-dose Lovenox. I would recommend this for the next 48 hours and then stop after that. No plans on doing a heart catheterization at this time as this is most likely related to her pneumonia. 4. We will do echocardiogram. Thank you for letting us to participate in the care of your patient. We will follow. Job ID: [id number]
[2019-12-28] MEDS: Atorvastatin Calcium 20 MG TAB PO SCH (21:04)
[2019-12-28] MEDS: Gabapentin 300 MG CAP PO SCH (21:04)
[2019-12-28] MEDS ORDERED: Dextrose 50% Abboject 50 ML SYRINGE SLOW IVP PRN (22:03)
[2019-12-28] MEDS: Acetaminophen/Codeine 30-300mg Tablet PO PRN (22:27)
[2019-12-28] MEDS: Benzonatate 100 MG CAP PO PRN (22:28)
[2019-12-29] MEDS: Sodium Chloride 0.45% 1,000 ML IV SCH (05:52)
[2019-12-29] MEDS: cefTRIAXone\\ROCEPHIN 1 GM in Sodium Chloride 0.9% 100 ML IVPB SCH (08:19)
[2019-12-29] MEDS: Azithromycin 250 MG TAB PO SCH (08:20)
[2019-12-29] MEDS: Aspirin 325 MG TAB PO SCH (08:20)
[2019-12-29] MEDS: guaiFENesin ER 600 MG TAB PO SCH ×2 (08:21→21:05)
[2019-12-29] MEDS: Gabapentin 300 MG CAP PO SCH ×2 (08:21→21:03)
[2019-12-29] MEDS: Enoxaparin Sodium 100 MG/ML SYRINGE SC SCH ×2 (08:21→21:01)
[2019-12-29] MEDS: methylPREDNISolone Sod Succ/PF 125 MG/2 ML VIAL IVP SCH (08:22)
[2019-12-29] MEDS: Benzonatate 100 MG CAP PO PRN ×2 (08:39→19:49)
[2019-12-29 09:58] LABS: #Eosinphils 0.2 thou/uL (0.0-0.7); #Lymphocytes 1.3 thou/uL (1.20-3.40); #Monocytes 0.5 thou/uL (0.11-0.59); #Neutrophils 9.3 thou/uL (1.40-6.50); %Basophils 0.2 % (0.0-1.0); %Eosinophils 1.4 % (0.0-10.0); %Lymphocytes 11.5 % (21.0-51.0); %Monocytes 4.3 % (0.0-10.0); %Neutrophils 82.5 % (42.0-75.0); Hemoglobin 9.4 g/dL (12.0-16.0); Mean Corpuscular HGB CONC 33.2 g/dL (32.0-36.0); Mean Corpuscular Volume 90.2 fL (78.0-98.0); Mean Platelet Volume 8.7 fL (7.4-10.4); Platelet Count 209 thou/uL (130-400); RBC Distribution Width 13.3 % (11.5-14.5); Red Blood Cell (RBC) Count 3.14 mill/uL (4.20-5.40); White Blood Cell (WBC) Count 11.3 thou/uL (4.8-10.8)
[2019-12-29 10:45] LABS: Anion Gap 14 mmol/L (10-20); BUN (Urea Nitrogen) 47 mg/dL (9.8-20.1); Calc. Creatinine Clearance 96 mL/min (70-130); Calcium 8.6 mg/dL (7.8-10.44); Carbon Dioxide 21 mmol/L (22-29); Chloride 105 mmol/L (98-107); Estimated GFR-MDRD 30; Glucose 387 mg/dL (70-105); Potassium 5.2 mmol/L (3.5-5.1); Sodium 135 mmol/L (136-145)
[2019-12-29] MEDS ORDERED: Furosemide 20 MG TAB PO PRN (11:43)
--- NOTE | 2019-12-29 11:47 | PDOC.HOSPP ---
- Subjective Encounter Date: 12/29/19 Encounter Time: 11:45 Subjective: sob - Objective Vital Signs & Weight: Vital Signs (12 hours) Temp Pulse Resp BP BP Pulse Ox 12/29/19 11:15 99.5 F 81 18 138/65 96 12/29/19 10:26 87 20 96 12/29/19 10:00 138/64 12/29/19 08:08 98.7 F 97 18 189/85 H 98 12/29/19 06:37 82 16 96 12/29/19 03:22 97.8 F 80 19 100/68 99 12/29/19 01:56 88 18 95 Weight Weight 367 lb Most Recent Monitor Data Heart Rate from ECG 80 NIBP 126/82 NIBP BP-Mean 96 Respiration from ECG 20 SpO2 98 I&O: 12/28/19 12/29/19 12/30/19 06:59 06:59 07:59 Intake Total 250 1080 Output Total 500 Balance 250 580 Result Diagrams: 12/29/19 09:41 12/29/19 09:41 Additional Labs: Accuchecks 12/29/19 12/29/19 12/29/19 11:03 09:24 05:54 POC Glucose 400 H 393 H 415 H 12/28/19 12/28/19 12/28/19 20:41 17:03 11:57 POC Glucose 370 H 314 H 229 H Hospitalist ROS - Medication Medications: Active Medications Generic Name Dose Route Start Last Admin Trade Name Freq PRN Reason Stop Dose Admin Acetaminophen 650 mg 12/28/19 04:16 12/28/19 12:43 Tylenol PO 650 mg Q4H PRN Administration Headache/Fever or Pain Acetaminophen/Codeine Phosphate 2 tab 12/28/19 22:18 12/28/19 22:27 Tylenol #3 PO 2 tab Q6H PRN Administration Moderate Pain (4-6) Albuterol/Ipratropium 3 ml 12/28/19 04:16 12/28/19 19:12 Duoneb NEB 3 ml [id number] PRN Administration SOB &/or Wheezing Albuterol/Ipratropium 3 ml 12/28/19 22:30 12/29/19 10:26 Duoneb EZPAP 3 ml [id number] LIUDMILA Administration Aspirin 325 mg 12/29/19 09:00 12/29/19 08:20 Aspirin PO 325 mg DAILY LIUDMILA Administration Atorvastatin Calcium 20 mg 12/28/19 21:00 12/28/19 21:04 Lipitor PO 20 mg HS LIUDMILA Administration Azithromycin 250 mg 12/29/19 09:00 12/29/19 08:20 Zithromax PO 01/01/20 09:01 250 mg DAILY LIUDMILA Administration Benzonatate 100 mg 12/28/19 22:18 12/29/19 08:39 Tessalon PO 100 mg Q6H PRN Administration Cough Enoxaparin Sodium 170 mg 12/28/19 09:00 12/29/19 08:21 Lovenox SC 170 mg 0900,2100 LIUDMILA Administration Gabapentin 600 mg 12/28/19 21:00 12/29/19 08:21 Neurontin PO 600 mg BID LIUDMILA Administration Guaifenesin 600 mg 12/29/19 09:00 12/29/19 08:21 Mucinex PO 600 mg Q12HR LIUDMILA Administration Sodium Chloride 1,000 mls @ 50 mls/hr 12/28/19 03:45 12/29/19 05:52 1/2 Normal Saline IV 1,000 mls .Q20H LIUDMILA Administration Ceftriaxone Sodium 1 gm/ 100 mls @ 200 mls/hr 12/29/19 08:00 12/29/19 08:19 Sodium Chloride IVPB 100 mls Q24HR LIUDMILA Administration Insulin Human Lispro 0 units 12/28/19 13:18 12/28/19 17:53 Humalog SC 5 units .MILD SLIDING SCALE PRN Administration MILD SLIDING SCALE Protocol Insulin Human Regular 0 units 12/28/19 20:00 12/28/19 21:05 Humulin R FS 1 unit ASDIR LIUDMILA Administration Methylprednisolone Sodium Succinate 60 mg 12/29/19 09:00 12/29/19 08:22 Solu-Medrol IVP 60 mg DAILY LIUDMILA Administration Metoprolol Succinate 25 mg 12/29/19 09:00 12/29/19 08:22 Toprol Xl PO 25 mg DAILY LIUDMILA Administration Ondansetron HCl 4 mg 12/28/19 12:27 12/29/19 08:40 Zofran SLOW IVP 4 mg Q6H PRN Administration Nausea/Vomiting Sodium Chloride 10 ml 12/28/19 09:00 12/29/19 08:23 Flush - Normal Saline IVF 10 ml Q12HR LIUDMILA Administration - Exam General - other findings: morbid obesity Neck: no JVD Heart: RRR, no murmur Respiratory - other findings: diffuse coarse wheezes Gastrointestinal: soft, non-tender, normal bowel sounds Extremities: 2+ LE edema Hosp A/P (1) Myocardial infarction type 2 Code(s): I21.A1 - MYOCARDIAL INFARCTION TYPE 2 Status: Acute (2) PNA (pneumonia) Code(s): J18.9 - PNEUMONIA, UNSPECIFIED ORGANISM Status: Acute Qualifiers: Pneumonia type: due to Pneumococcus Laterality: bilateral Lung location: lower lobe of lung Qualified Code(s): J13 - Pneumonia due to Streptococcus pneumoniae (3) Acute respiratory failure with hypoxia Code(s): J96.01 - ACUTE RESPIRATORY FAILURE WITH HYPOXIA Status: Acute (4) DM type 2 (diabetes mellitus, type 2) Status: Chronic 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
--- NOTE | 2019-12-29 12:24 | RAD ---
PORTABLE CHEST 1 VIEW: DATE: 12/29/2019. TIME: 11:33 AM. HISTORY: Pneumonia. FINDINGS: The heart is enlarged. The lungs are expanded with patchy infiltrates in the right mid and left lowe r lung zones. No pneumothoraces or pleural effusions are seen. IMPRESSION: Pneumonia. POS: [facility]
[2019-12-29] MEDS ORDERED: Insulin Regular 300 UNITS/3 ML VIAL SC PRN (19:32)
[2019-12-29] MEDS: Acetaminophen/Codeine 30-300mg Tablet PO PRN (19:49)
--- NOTE | 2019-12-29 20:39 | PDOC.CPN ---
- Subjective Date: 12/29/19 Time: 20:36 Interval history: No new issues. Breathing slowly improving. Echo still pending. - Review of Systems General: denies: fever/chills, weight/appetite/sleep changes, night sweats, fatigue Respiratory: reports: shortness of breath, exercise intolerance. denies: cough , congestion Cardiovascular: denies: chest pain, palpitation, edema, paroxysmal nocturnal dyspnea, orthopnea Gastrointestinal: denies: nausea, vomiting, diarrhea, constipation, abd pain, GI bleeding Musculoskeletal: denies: pain, tenderness, stiffness, swelling, arthritis/ arthralgias Neurological: denies: numbness, syncope, seizure, weakness - Objective Allergies/Adverse Reactions: Allergies Allergy/AdvReac Type Severity Reaction Status Date / Time TAHMINA Inhibitors Allergy Verified 02/04/19 04:40 ketorolac [From Toradol] Allergy Verified 11/09/19 01:42 tramadol Allergy Verified 11/09/19 01:42 latex based adhesives Allergy Uncoded 02/04/19 04:40 Visit Medications: Current Medications Acetaminophen (Tylenol) 650 mg PO Q4H PRN PRN Reason: Headache/Fever or Pain Last Admin: 12/28/19 12:43 Dose: 650 mg Acetaminophen/Codeine Phosphate (Tylenol #3) 2 tab PO Q6H PRN PRN Reason: Moderate Pain (4-6) Last Admin: 12/29/19 19:49 Dose: 2 tab Albuterol Sulfate (Albuterol Sulfate) 1.25 mg NEB Q2H PRN PRN Reason: Wheezing Albuterol/Ipratropium (Duoneb) 3 ml NEB [id number] PRN PRN Reason: SOB &/or Wheezing Last Admin: 12/28/19 19:12 Dose: 3 ml Albuterol/Ipratropium (Duoneb) 3 ml EZPAP [id number] LIUDMILA Last Admin: 12/29/19 18:29 Dose: 3 ml Aspirin (Aspirin) 325 mg PO DAILY [facility] Last Admin: 12/29/19 08:20 Dose: 325 mg Atorvastatin Calcium (Lipitor) 20 mg PO HS [facility] Last Admin: 12/28/19 21:04 Dose: 20 mg Azithromycin (Zithromax) 250 mg PO DAILY [facility] Stop: 01/01/20 09:01 Last Admin: 12/29/19 08:20 Dose: 250 mg Benzonatate (Tessalon) 100 mg PO Q6H PRN PRN Reason: Cough Last Admin: 12/29/19 19:49 Dose: 100 mg Dextrose/Water (Dextrose 50%) 25 gm SLOW IVP PRN PRN PRN Reason: Hypoglycemia Enoxaparin Sodium (Lovenox) 170 mg SC 0900,2100 [facility] Last Admin: 12/29/19 08:21 Dose: 170 mg Furosemide (Lasix) 20 mg PO DAILY PRN PRN Reason: Edema Gabapentin (Neurontin) 600 mg PO BID [facility] Last Admin: 12/29/19 08:21 Dose: 600 mg Glucagon (Glucagon) 1 mg IM PRN PRN PRN Reason: Hypoglycemia Guaifenesin (Mucinex) 600 mg PO Q12HR [facility] Last Admin: 12/29/19 08:21 Dose: 600 mg Sodium Chloride (1/2 Normal Saline) 1,000 mls @ 50 mls/hr IV .Q20H [facility] Last Admin: 12/29/19 05:52 Dose: 1,000 mls Ceftriaxone Sodium 1 gm/ (Sodium Chloride) 100 mls @ 200 mls/hr IVPB Q24HR [facility] Last Admin: 12/29/19 08:19 Dose: 100 mls Dextrose/Water (D5w) 1,000 mls @ 0 mls/hr IV .Q0M PRN PRN Reason: Hypoglycemia Insulin Human Lispro (Humalog) 0 units SC .BEDTIME SLIDING SC PRN; Protocol PRN Reason: BEDTIME SLIDING SCALE Insulin Human Regular (Humulin R) 0 units FS ASDIR [facility] Last Admin: 12/28/19 21:05 Dose: 1 unit Insulin Human Regular (Humulin R) 0 units SC .MODERATE SLIDING SC PRN; Protocol PRN Reason: MODERATE SLIDING SCALE Methylprednisolone Sodium Succinate (Solu-Medrol) 60 mg IVP DAILY [facility] Last Admin: 12/29/19 08:22 Dose: 60 mg Metoprolol Succinate (Toprol Xl) 25 mg PO DAILY [facility] Last Admin: 12/29/19 08:22 Dose: 25 mg Ondansetron HCl (Zofran) 4 mg SLOW IVP Q6H PRN PRN Reason: Nausea/Vomiting Last Admin: 12/29/19 08:40 Dose: 4 mg Simvastatin (Zocor) 40 mg PO [facility] Sodium Chloride (Flush - Normal Saline) 10 ml IVF Q12HR [facility] Last Admin: 12/29/19 08:23 Dose: 10 ml Sodium Chloride (Flush - Normal Saline) 10 ml IVF PRN PRN PRN Reason: Saline Flush Vital Signs & Weight: Vital Signs Temp Pulse Resp BP BP Pulse Ox 12/29/19 18:29 20 12/29/19 16:10 100.2 F H 79 18 137/65 99 12/29/19 14:12 85 20 95 12/29/19 11:15 99.5 F 81 18 138/65 96 12/29/19 10:26 87 20 96 12/29/19 10:00 138/64 Weight 367 lb - Physical Exam General: alert & oriented x3 HEENT: mucus membranes moist Neck: supple neck Cardiac: regular rate and rhythm Lungs: wheezes, scattered rhonchi Neuro: grossly intact Abdomen: active bowel sounds Extremities: 1+ LE edema Skin: clear Musculoskeletal: no pain - Labs Result Diagrams: 12/29/19 09:41 12/29/19 09:41 Troponin/CKMB CK-MB (CK-2) 5.5 ng/mL (0-6.6) 12/28/19 02:33 Troponin I 3.563 ng/mL (< 0.028) H* 12/28/19 02:33 - Telemetry Sinus rhythms and dysrhythmias: sinus rhythm - Assessment/Plan Assessment/Plan: 1. Bilateral pneumonia 2. Type 2 WHO demand ischemia. 3. Morbid obesity PLAN: - Lungs slowly improving. - Echo pending.
[2019-12-29 20:56] LABS: Glucose 625 mg/dL (70-105)
[2019-12-29] MEDS ORDERED: Gabapentin 300 MG CAP PO SCH (21:00)
[2019-12-29] MEDS: Simvastatin 40 MG TAB PO SCH (21:03)
[2019-12-29] MEDS: Atorvastatin Calcium 20 MG TAB PO SCH (21:03)
[2019-12-30] MEDS: Sodium Chloride 0.45% 1,000 ML IV SCH ×2 (05:54→15:30)
[2019-12-30] MEDS ORDERED: Aspirin 325 MG TAB PO SCH (09:00)
[2019-12-30] MEDS: guaiFENesin ER 600 MG TAB PO SCH ×2 (09:55→20:47)
[2019-12-30] MEDS: Azithromycin 250 MG TAB PO SCH (09:55)
[2019-12-30] MEDS: Gabapentin 300 MG CAP PO SCH ×2 (09:55→20:47)
[2019-12-30] MEDS: Aspirin 325 MG TAB PO SCH (09:55)
[2019-12-30] MEDS: methylPREDNISolone Sod Succ/PF 125 MG/2 ML VIAL IVP SCH (09:57)
[2019-12-30] MEDS: Enoxaparin Sodium 100 MG/ML SYRINGE SC SCH (09:58)
--- NOTE | 2019-12-30 10:05 | PDOC.HOSPP ---
- Subjective Encounter Date: 12/30/19 Encounter Time: 10:00 Subjective: sob improved, still has some KEEN - Objective Vital Signs & Weight: Vital Signs (12 hours) Temp Pulse Resp BP Pulse Ox 12/30/19 08:45 97.8 F 70 18 156/70 H 97 12/30/19 06:39 82 20 94 L 12/30/19 03:18 98.2 F 57 L 18 125/56 L 98 12/30/19 03:01 89 20 95 12/29/19 22:50 97.9 F 73 18 150/55 H 92 L Weight Weight 367 lb Most Recent Monitor Data Heart Rate from ECG 80 NIBP 126/82 NIBP BP-Mean 96 Respiration from ECG 20 SpO2 98 I&O: 12/29/19 12/30/19 12/31/19 05:59 06:59 06:59 Intake Total Output Total Balance Result Diagrams: 12/29/19 09:41 12/29/19 20:30 Additional Labs: Accuchecks 12/30/19 12/30/19 12/29/19 03:59 00:06 17:12 POC Glucose 459 H 508 H 517 H 12/29/19 12/29/19 11:03 09:24 POC Glucose 400 H 393 H Radiology Reviewed by me: Yes (cxr-cardiomegaly, bilat infiltrates) Hospitalist ROS - Medication Medications: Active Medications Generic Name Dose Route Start Last Admin Trade Name Freq PRN Reason Stop Dose Admin Acetaminophen 650 mg 12/28/19 04:16 12/28/19 12:43 Tylenol PO 650 mg Q4H PRN Administration Headache/Fever or Pain Acetaminophen/Codeine Phosphate 2 tab 12/28/19 22:18 12/29/19 19:49 Tylenol #3 PO 2 tab Q6H PRN Administration Moderate Pain (4-6) Albuterol/Ipratropium 3 ml 12/28/19 04:16 12/28/19 19:12 Duoneb NEB 3 ml [id number] PRN Administration SOB &/or Wheezing Albuterol/Ipratropium 3 ml 12/28/19 22:30 12/30/19 06:39 Duoneb EZPAP 3 ml [id number] LIUDMILA Administration Aspirin 325 mg 12/29/19 09:00 12/30/19 09:55 Aspirin PO 325 mg DAILY LIUDMILA Administration Atorvastatin Calcium 20 mg 12/28/19 21:00 12/29/19 21:03 Lipitor PO 20 mg HS LIUDMILA Administration Azithromycin 250 mg 12/29/19 09:00 12/30/19 09:55 Zithromax PO 01/01/20 09:01 250 mg DAILY LIUDMILA Administration Benzonatate 100 mg 12/28/19 22:18 12/29/19 19:49 Tessalon PO 100 mg Q6H PRN Administration Cough Enoxaparin Sodium 170 mg 12/28/19 09:00 12/30/19 09:58 Lovenox SC 170 mg 0900,2100 LIUDMILA Administration Gabapentin 600 mg 12/28/19 21:00 12/30/19 09:55 Neurontin PO 600 mg BID LIUDMILA Administration Guaifenesin 600 mg 12/29/19 09:00 12/30/19 09:55 Mucinex PO 600 mg Q12HR LIUDMILA Administration Sodium Chloride 1,000 mls @ 50 mls/hr 12/28/19 03:45 12/30/19 05:54 1/2 Normal Saline IV Not Given .Q20H LIUDMILA Ceftriaxone Sodium 1 gm/ 100 mls @ 200 mls/hr 12/29/19 08:00 12/29/19 08:19 Sodium Chloride IVPB 100 mls Q24HR LIUDMILA Administration Insulin Human Regular 0 units 12/28/19 20:00 12/28/19 21:05 Humulin R FS 1 unit ASDIR LIUDMILA Administration Methylprednisolone Sodium Succinate 60 mg 12/29/19 09:00 12/30/19 09:57 Solu-Medrol IVP 60 mg DAILY LIUDMILA Administration Metoprolol Succinate 25 mg 12/29/19 09:00 12/30/19 09:57 Toprol Xl PO 25 mg DAILY LIUDMILA Administration Ondansetron HCl 4 mg 12/28/19 12:27 12/29/19 08:40 Zofran SLOW IVP 4 mg Q6H PRN Administration Nausea/Vomiting Simvastatin 40 mg 12/29/19 21:00 12/29/19 21:03 Zocor PO 40 mg HS LIUDMILA Administration Sodium Chloride 10 ml 12/28/19 09:00 12/30/19 09:58 Flush - Normal Saline IVF Not Given Q12HR LIUDMILA - Exam General Appearance: awake alert Neck: no JVD Heart: RRR, no murmur Respiratory - other findings: bilat post rales Gastrointestinal: soft, normal bowel sounds Extremities: 1+ LE edema Hosp A/P (1) Myocardial infarction type 2 Code(s): I21.A1 - MYOCARDIAL INFARCTION TYPE 2 Status: Acute (2) PNA (pneumonia) Code(s): J18.9 - PNEUMONIA, UNSPECIFIED ORGANISM Status: Acute Qualifiers: Pneumonia type: due to Pneumococcus Laterality: bilateral Lung location: lower lobe of lung Qualified Code(s): J13 - Pneumonia due to Streptococcus pneumoniae (3) Acute respiratory failure with hypoxia Code(s): J96.01 - ACUTE RESPIRATORY FAILURE WITH HYPOXIA Status: Acute (4) DM type 2 (diabetes mellitus, type 2) Status: Chronic 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
[2019-12-30] MEDS: Benzonatate 100 MG CAP PO PRN ×2 (10:12→20:49)
[2019-12-30] MEDS: cefTRIAXone\\ROCEPHIN 1 GM in Sodium Chloride 0.9% 100 ML IVPB SCH (10:12)
[2019-12-30] MEDS: Acetaminophen/Codeine 30-300mg Tablet PO PRN ×2 (10:13→20:50)
[2019-12-30 10:44] LABS: Hemoglobin A1c 7.4 % (4.0-6.0)
--- NOTE | 2019-12-30 17:44 | PDOC.CPN ---
- Subjective Date: 12/30/19 Time: 17:43 Interval history: No new issues. Breathing slowly improving. - Review of Systems General: denies: fever/chills, weight/appetite/sleep changes, night sweats, fatigue Respiratory: denies: cough, congestion, shortness of breath, exercise intolerance Cardiovascular: denies: chest pain, palpitation, edema, paroxysmal nocturnal dyspnea, orthopnea Gastrointestinal: denies: nausea, vomiting, diarrhea, constipation, abd pain, GI bleeding Musculoskeletal: denies: pain, tenderness, stiffness, swelling, arthritis/ arthralgias Neurological: denies: numbness, syncope, seizure, weakness - Objective Allergies/Adverse Reactions: Allergies Allergy/AdvReac Type Severity Reaction Status Date / Time TAHMINA Inhibitors Allergy Verified 02/04/19 04:40 ketorolac [From Toradol] Allergy Verified 11/09/19 01:42 tramadol Allergy Verified 11/09/19 01:42 latex based adhesives Allergy Uncoded 02/04/19 04:40 Visit Medications: Current Medications Acetaminophen (Tylenol) 650 mg PO Q4H PRN PRN Reason: Headache/Fever or Pain Last Admin: 12/28/19 12:43 Dose: 650 mg Acetaminophen/Codeine Phosphate (Tylenol #3) 2 tab PO Q6H PRN PRN Reason: Moderate Pain (4-6) Last Admin: 12/30/19 10:13 Dose: 1 tab Albuterol Sulfate (Albuterol Sulfate) 1.25 mg NEB Q2H PRN PRN Reason: Wheezing Albuterol/Ipratropium (Duoneb) 3 ml NEB [id number] PRN PRN Reason: SOB &/or Wheezing Last Admin: 12/28/19 19:12 Dose: 3 ml Albuterol/Ipratropium (Duoneb) 3 ml EZPAP [id number] LIUDMILA Last Admin: 12/30/19 14:18 Dose: 3 ml Aspirin (Aspirin) 325 mg PO DAILY [facility] Last Admin: 12/30/19 09:55 Dose: 325 mg Atorvastatin Calcium (Lipitor) 20 mg PO HS [facility] Last Admin: 12/29/19 21:03 Dose: 20 mg Azithromycin (Zithromax) 250 mg PO DAILY [facility] Stop: 01/01/20 09:01 Last Admin: 12/30/19 09:55 Dose: 250 mg Benzonatate (Tessalon) 100 mg PO Q6H PRN PRN Reason: Cough Last Admin: 12/30/19 10:12 Dose: 100 mg Dextrose/Water (Dextrose 50%) 25 gm SLOW IVP PRN PRN PRN Reason: Hypoglycemia Furosemide (Lasix) 20 mg PO DAILY PRN PRN Reason: Edema Gabapentin (Neurontin) 600 mg PO BID [facility] Last Admin: 12/30/19 09:55 Dose: 600 mg Glucagon (Glucagon) 1 mg IM PRN PRN PRN Reason: Hypoglycemia Guaifenesin (Mucinex) 600 mg PO Q12HR [facility] Last Admin: 12/30/19 09:55 Dose: 600 mg Sodium Chloride (1/2 Normal Saline) 1,000 mls @ 50 mls/hr IV .Q20H [facility] Last Admin: 12/30/19 15:30 Dose: 1,000 mls Ceftriaxone Sodium 1 gm/ (Sodium Chloride) 100 mls @ 200 mls/hr IVPB Q24HR [facility] Last Admin: 12/30/19 10:12 Dose: 100 mls Dextrose/Water (D5w) 1,000 mls @ 0 mls/hr IV .Q0M PRN PRN Reason: Hypoglycemia Insulin Human Lispro (Humalog) 0 units SC .BEDTIME SLIDING SC PRN; Protocol PRN Reason: BEDTIME SLIDING SCALE Insulin Human Regular (Humulin R) 0 units FS ASDIR [facility] Last Admin: 12/28/19 21:05 Dose: 1 unit Insulin Human Regular (Humulin R) 0 units SC .MODERATE SLIDING SC PRN; Protocol PRN Reason: MODERATE SLIDING SCALE Methylprednisolone Sodium Succinate (Solu-Medrol) 60 mg IVP DAILY [facility] Last Admin: 12/30/19 09:57 Dose: 60 mg Metoprolol Succinate (Toprol Xl) 25 mg PO DAILY [facility] Last Admin: 12/30/19 09:57 Dose: 25 mg Ondansetron HCl (Zofran) 4 mg SLOW IVP Q6H PRN PRN Reason: Nausea/Vomiting Last Admin: 12/29/19 08:40 Dose: 4 mg Simvastatin (Zocor) 40 mg PO HS [facility] Last Admin: 12/29/19 21:03 Dose: 40 mg Sodium Chloride (Flush - Normal Saline) 10 ml IVF Q12HR [facility] Last Admin: 12/30/19 09:58 Dose: Not Given Sodium Chloride (Flush - Normal Saline) 10 ml IVF PRN PRN PRN Reason: Saline Flush Vital Signs & Weight: Vital Signs Temp Pulse Resp BP Pulse Ox 12/30/19 16:08 97.8 F 69 20 167/73 H 97 12/30/19 14:18 82 22 H 92 L 12/30/19 12:10 98.4 F 65 20 125/70 12/30/19 10:36 87 20 94 L 12/30/19 08:45 97.8 F 70 18 156/70 H 97 12/30/19 07:27 97 12/30/19 06:39 82 20 94 L Weight 367 lb - Physical Exam General: alert & oriented x3 HEENT: mucus membranes moist Neck: supple neck Cardiac: regular rate and rhythm Lungs: normal breath sounds Neuro: grossly intact Abdomen: active bowel sounds Extremities: 1+ LE edema Skin: clear Musculoskeletal: no pain - Labs Result Diagrams: 12/29/19 09:41 12/29/19 20:30 Troponin/CKMB CK-MB (CK-2) 5.5 ng/mL (0-6.6) 12/28/19 02:33 Troponin I 3.563 ng/mL (< 0.028) H* 12/28/19 02:33 - Telemetry Sinus rhythms and dysrhythmias: sinus rhythm - Assessment/Plan Assessment/Plan: 1. Bilateral pneumonia 2. Type 2 WHO demand ischemia. 3. Morbid obesity PLAN: - Lungs slowly improving. - Echo unchanged from 2 months ago.
[2019-12-30] MEDS: Atorvastatin Calcium 20 MG TAB PO SCH (20:47)
[2019-12-30] MEDS: Simvastatin 40 MG TAB PO SCH (20:47)
[2019-12-31] MEDS: guaiFENesin ER 600 MG TAB PO SCH ×2 (09:12→21:31)
[2019-12-31] MEDS: cefTRIAXone\\ROCEPHIN 1 GM in Sodium Chloride 0.9% 100 ML IVPB SCH (09:12)
[2019-12-31] MEDS: Gabapentin 300 MG CAP PO SCH ×2 (09:13→21:31)
[2019-12-31] MEDS: methylPREDNISolone Sod Succ/PF 125 MG/2 ML VIAL IVP SCH (09:13)
[2019-12-31] MEDS: Azithromycin 250 MG TAB PO SCH (09:13)
[2019-12-31] MEDS: Aspirin 325 MG TAB PO SCH (09:14)
[2019-12-31] MEDS: Benzonatate 100 MG CAP PO PRN ×2 (09:29→21:33)
[2019-12-31] MEDS: Acetaminophen/Codeine 30-300mg Tablet PO PRN ×2 (09:29→21:33)
--- NOTE | 2019-12-31 13:49 | PDOC.HOSPP ---
- Subjective Encounter Date: 12/31/19 Encounter Time: 11:00 Subjective: says he feels slightly better, and getting BD treatments; d/w respiratory therapist. - Objective Vital Signs & Weight: Vital Signs (12 hours) Temp Pulse Resp BP BP Pulse Ox 12/31/19 13:00 16 165/74 H 12/31/19 11:58 98.0 F 75 17 199/88 H 98 12/31/19 10:39 72 20 98 12/31/19 09:08 97.7 F 76 20 181/91 H 99 12/31/19 07:07 99 12/31/19 07:05 66 22 H 99 12/31/19 04:00 98 F 86 16 136/63 97 Weight Admit Weight 367 lb Weight 367 lb Most Recent Monitor Data Heart Rate from ECG 80 NIBP 126/82 NIBP BP-Mean 96 Respiration from ECG 20 SpO2 98 I&O: 12/30/19 12/31/19 01/01/20 06:59 06:59 06:59 Intake Total 2340 Output Total 2000 Balance 340 Result Diagrams: 12/29/19 09:41 12/29/19 20:30 Additional Labs: Accuchecks 12/31/19 12/31/19 12/31/19 10:37 04:39 00:47 POC Glucose 227 H 333 H 367 H 12/30/19 12/29/19 12/29/19 20:37 20:21 20:20 POC Glucose 337 H Greater than 550 H* Greater than 550 H* Hospitalist ROS - Medication Medications: Active Medications Generic Name Dose Route Start Last Admin Trade Name Freq PRN Reason Stop Dose Admin Acetaminophen 650 mg 12/28/19 04:16 12/28/19 12:43 Tylenol PO 650 mg Q4H PRN Administration Headache/Fever or Pain Acetaminophen/Codeine Phosphate 2 tab 12/28/19 22:18 12/31/19 09:29 Tylenol #3 PO 2 tab Q6H PRN Administration Moderate Pain (4-6) Albuterol/Ipratropium 3 ml 12/28/19 04:16 12/28/19 19:12 Duoneb NEB 3 ml [id number] PRN Administration SOB &/or Wheezing Albuterol/Ipratropium 3 ml 12/28/19 22:30 12/31/19 10:39 Duoneb EZPAP 3 ml [id number] LIUDMILA Administration Aspirin 325 mg 12/29/19 09:00 12/31/19 09:14 Aspirin PO 325 mg DAILY LIUDMILA Administration Atorvastatin Calcium 20 mg 12/28/19 21:00 12/30/19 20:47 Lipitor PO 20 mg HS LIUDMILA Administration Azithromycin 250 mg 12/29/19 09:00 12/31/19 09:13 Zithromax PO 01/01/20 09:01 250 mg DAILY LIUDMILA Administration Benzonatate 100 mg 12/28/19 22:18 12/31/19 09:29 Tessalon PO 100 mg Q6H PRN Administration Cough Gabapentin 600 mg 12/28/19 21:00 12/31/19 09:13 Neurontin PO 600 mg BID LIUDMILA Administration Guaifenesin 600 mg 12/29/19 09:00 12/31/19 09:12 Mucinex PO 600 mg Q12HR LIUDMILA Administration Sodium Chloride 1,000 mls @ 50 mls/hr 12/28/19 03:45 12/30/19 15:30 1/2 Normal Saline IV 1,000 mls .Q20H LIUDMILA Administration Ceftriaxone Sodium 1 gm/ 100 mls @ 200 mls/hr 12/29/19 08:00 12/31/19 09:12 Sodium Chloride IVPB 100 mls Q24HR LIUDMILA Administration Insulin Human Regular 0 units 12/28/19 20:00 12/28/19 21:05 Humulin R FS 1 unit ASDIR LIUDMILA Administration Methylprednisolone Sodium Succinate 60 mg 12/29/19 09:00 12/31/19 09:13 Solu-Medrol IVP 60 mg DAILY LIUDMILA Administration Metoprolol Succinate 25 mg 12/29/19 09:00 12/31/19 09:12 Toprol Xl PO 25 mg DAILY LIUDMILA Administration Ondansetron HCl 4 mg 12/28/19 12:27 12/29/19 08:40 Zofran SLOW IVP 4 mg Q6H PRN Administration Nausea/Vomiting Simvastatin 40 mg 12/29/19 21:00 12/30/19 20:47 Zocor PO 40 mg HS LIUDMILA Administration Sodium Chloride 10 ml 12/28/19 09:00 12/31/19 09:14 Flush - Normal Saline IVF 10 ml Q12HR LIUDMILA Administration - Exam General Appearance: NAD, awake alert Eye: PERRL ENT: normocephalic atraumatic Neck: supple Heart: RRR, normal peripheral pulses Respiratory: normal chest expansion, no tachypnea, rales, rhonchi, wheezes Gastrointestinal: soft, non-tender, normal bowel sounds Neurological: cranial nerve grossly intact, no focal deficits Hosp A/P - Plan Hosp A/P (1) Myocardial infarction type 2 Code(s): I21.A1 - MYOCARDIAL INFARCTION TYPE 2 Status: Acute b/l pneumonia Pneumonia due to Streptococcus pneumoniae and recent fluu and recent PNA in that has been treated cont rocephine/zithromax iv cont nebs (3) Acute respiratory failure with hypoxia Code(s): J96.01 - ACUTE RESPIRATORY FAILURE WITH HYPOXIA Status: Acute (4) DM type 2 (diabetes mellitus, type 2) also steroid induced hyperglycemia -a1c 7.4 BG still high - on SSI (5) Dyslipidemia Code(s): E78.5 - HYPERLIPIDEMIA, UNSPECIFIED Status: Chronic (6) HTN (hypertension) Acelerated HTN -on toprol--inc'd the dose and added hydralazine -not ocntrolled -no acEi/arb as her Cr high Diabetic nephropathy with current cr of 1.78 CKD 3 Morbid obesity
[2019-12-31] MEDS: hydrALAZINE 25 MG TAB PO SCH ×2 (15:25→21:30)
[2019-12-31] MEDS: Simvastatin 40 MG TAB PO SCH (21:31)
[2019-12-31] MEDS: Atorvastatin Calcium 20 MG TAB PO SCH (21:31)
[2020-01-01] MEDS: hydrALAZINE 25 MG TAB PO SCH ×3 (04:09→21:35)
[2020-01-01 09:28] LABS: #Lymphocytes 1.8 thou/uL (1.20-3.40); #Monocytes 0.6 thou/uL (0.11-0.59); #Neutrophils 8.2 thou/uL (1.40-6.50); %Basophils 0.1 % (0.0-1.0); %Eosinophils 0.2 % (0.0-10.0); %Lymphocytes 16.5 % (21.0-51.0); %Monocytes 5.6 % (0.0-10.0); %Neutrophils 77.6 % (42.0-75.0); Hemoglobin 9.1 g/dL (12.0-16.0); Mean Corpuscular HGB CONC 31.7 g/dL (32.0-36.0); Mean Corpuscular Hemoglobin 28.6 pg (27.0-31.0); Mean Corpuscular Volume 90.2 fL (78.0-98.0); Mean Platelet Volume 8.1 fL (7.4-10.4); Platelet Count 191 thou/uL (130-400); RBC Distribution Width 13.1 % (11.5-14.5); Red Blood Cell (RBC) Count 3.19 mill/uL (4.20-5.40); White Blood Cell (WBC) Count 10.6 thou/uL (4.8-10.8)
[2020-01-01 09:47] LABS: Anion Gap 11 mmol/L (10-20); BUN (Urea Nitrogen) 28 mg/dL (9.8-20.1); Calc. Creatinine Clearance 201 mL/min (70-130); Calcium 8.7 mg/dL (7.8-10.44); Carbon Dioxide 22 mmol/L (22-29); Chloride 111 mmol/L (98-107); Estimated GFR-MDRD 70; Glucose 180 mg/dL (70-105); Potassium 5.3 mmol/L (3.5-5.1); Sodium 139 mmol/L (136-145)
[2020-01-01] MEDS: Aspirin 325 MG TAB PO SCH (10:40)
[2020-01-01] MEDS: Gabapentin 300 MG CAP PO SCH ×2 (10:40→21:35)
[2020-01-01] MEDS: guaiFENesin ER 600 MG TAB PO SCH ×2 (10:40→21:34)
[2020-01-01] MEDS: Azithromycin 250 MG TAB PO SCH (10:40)
[2020-01-01] MEDS: methylPREDNISolone Sod Succ/PF 125 MG/2 ML VIAL IVP SCH (10:41)
[2020-01-01] MEDS: Benzonatate 100 MG CAP PO PRN ×2 (10:42→21:44)
[2020-01-01] MEDS: cefTRIAXone\\ROCEPHIN 1 GM in Sodium Chloride 0.9% 100 ML IVPB SCH (10:48)
--- NOTE | 2020-01-01 12:58 | PQF ---
CLINICAL DOCUMENTATION IMPROVEMENT CLARIFICATION FORM: ICD-10 Updated PLEASE DO AN ADDENDUM TO THE PROGRESS NOTE WITH ANY DOCUMENTATION UPDATES OR ADDITIONS AND CARRY THROUGH TO DC SUMMARY. THANK YOU. DATE: 01/01/20 ATTN: DR. ORTIZ Please exercise your independent, professional judgment in responding to the clarification form. Clinical indicators are provided on the bottom of this form for your review Please check appropriate box(s) to clarify if the following diagnosis has been ruled in or ruled out: "SEPSIS" [ ] Ruled in diagnosis [ ] Continue to treat [ ] Resolved [ x] Ruled out diagnosis [ ] Cannot rule out diagnosis [ ] Other diagnosis [ ] Unable to determine In addition, please specify: Present on Admission (POA): [ ] Yes [ ] No [ ] Unable to determine For continuity of documentation, please document condition throughout progress notes and discharge summary. Thank You. CLINICAL INDICATORS - SIGNS / SYMPTOMS / LABS / RESULTS AND LOCATION IN MR H&P 12/27: "SEPSIS" ER NOTE: "ASSOCIATED WITH CHILLS...MAXIMUM TEMPERATURE 102-102.9" WBC 12/27: 15.7 RISKS: PNEUMONIA (H&P 12/27) TREATMENT: IV ROCEPHIN 12/28-PRESENT ZITHROMAX PO (12/28-12/31) BLOOD AND STOOL CULTURES (12/26-12/27) (This form is maintained as a part of the permanent medical record) 2014 [employer], [employer]. All Rights Reserved [email or web address] Office: [phone] [facility]
--- NOTE | 2020-01-01 13:15 | PDOC.HOSPP ---
- Subjective Encounter Date: 01/01/20 Encounter Time: 10:25 Subjective: Cr improved, d/w pt and dtr; pt feels slightly better, lungs sounds improved; DIabtic/heart diet. - Objective Vital Signs & Weight: Vital Signs (12 hours) Temp Pulse Resp BP BP Pulse Ox 01/01/20 12:08 98.5 F 67 15 187/81 H 99 01/01/20 10:53 73 18 98 01/01/20 07:56 98.5 F 81 20 192/87 H 100 01/01/20 07:25 77 20 100 01/01/20 05:35 87 155/76 H 01/01/20 04:09 78 170/72 H 01/01/20 03:59 98.3 F 78 18 170/79 H 99 01/01/20 03:39 97 Weight Admit Weight 367 lb Weight 367 lb Most Recent Monitor Data Heart Rate from ECG 80 NIBP 126/82 NIBP BP-Mean 96 Respiration from ECG 20 SpO2 98 I&O: 12/31/19 01/01/20 01/02/20 06:59 06:59 06:59 Intake Total 2340 1200 Output Total 2000 1300 Balance 340 -100 Result Diagrams: 01/01/20 09:20 01/01/20 09:20 Additional Labs: Accuchecks 01/01/20 12/31/19 12/31/19 05:29 20:06 17:01 POC Glucose 196 H 271 H 237 H Hospitalist ROS - Medication Medications: Active Medications Generic Name Dose Route Start Last Admin Trade Name Freq PRN Reason Stop Dose Admin Acetaminophen 650 mg 12/28/19 04:16 12/28/19 12:43 Tylenol PO 650 mg Q4H PRN Administration Headache/Fever or Pain Acetaminophen/Codeine Phosphate 2 tab 12/28/19 22:18 12/31/19 21:33 Tylenol #3 PO 2 tab Q6H PRN Administration Moderate Pain (4-6) Albuterol/Ipratropium 3 ml 12/28/19 04:16 12/28/19 19:12 Duoneb NEB 3 ml [id number] PRN Administration SOB &/or Wheezing Albuterol/Ipratropium 3 ml 12/28/19 22:30 01/01/20 10:53 Duoneb EZPAP 3 ml [id number] LIUDMILA Administration Aspirin 325 mg 12/29/19 09:00 01/01/20 10:40 Aspirin PO 325 mg DAILY LIUDMILA Administration Atorvastatin Calcium 20 mg 12/28/19 21:00 12/31/19 21:31 Lipitor PO 20 mg HS LIUDMILA Administration Benzonatate 100 mg 12/28/19 22:18 01/01/20 10:42 Tessalon PO 100 mg Q6H PRN Administration Cough Gabapentin 600 mg 12/28/19 21:00 01/01/20 10:40 Neurontin PO 600 mg BID LIUDMILA Administration Guaifenesin 600 mg 12/29/19 09:00 01/01/20 10:40 Mucinex PO 600 mg Q12HR LIUDMILA Administration Hydralazine HCl 37.5 mg 12/31/19 15:00 01/01/20 04:09 Apresoline PO 37.5 mg TID LIUDMILA Administration Ceftriaxone Sodium 1 gm/ 100 mls @ 200 mls/hr 12/29/19 08:00 01/01/20 10:48 Sodium Chloride IVPB 100 mls Q24HR LIUDMILA Administration Insulin Human Regular 0 units 12/28/19 20:00 12/28/19 21:05 Humulin R FS 1 unit ASDIR LIUDMILA Administration Methylprednisolone Sodium Succinate 60 mg 12/29/19 09:00 01/01/20 10:41 Solu-Medrol IVP 60 mg DAILY LIUDMILA Administration Metoprolol Succinate 75 mg 01/01/20 09:00 01/01/20 10:40 Toprol Xl PO 75 mg DAILY LUIDMILA Administration Ondansetron HCl 4 mg 12/28/19 12:27 12/29/19 08:40 Zofran SLOW IVP 4 mg Q6H PRN Administration Nausea/Vomiting Sodium Chloride 10 ml 12/28/19 09:00 01/01/20 10:40 Flush - Normal Saline IVF 10 ml Q12HR LIUDMILA Administration - Exam General Appearance: NAD, awake alert Eye: PERRL ENT: normocephalic atraumatic Neck: supple Heart: RRR Respiratory: CTAB, normal chest expansion Gastrointestinal: normal bowel sounds Neurological: cranial nerve grossly intact, no focal deficits Hosp A/P - Plan Hosp A/P (1) Myocardial infarction type 2 Code(s): I21.A1 - MYOCARDIAL INFARCTION TYPE 2 Status: Acute b/l pneumonia Pneumonia due to Streptococcus pneumoniae and recent fluu and recent PNA in that has been treated cont rocephine/zithromax iv cont nebs (3) Acute respiratory failure with hypoxia Code(s): J96.01 - ACUTE RESPIRATORY FAILURE WITH HYPOXIA Status: Acute (4) DM type 2 (diabetes mellitus, type 2) also steroid induced hyperglycemia -a1c 7.4 BG still high - on SSI (5) Dyslipidemia Code(s): E78.5 - HYPERLIPIDEMIA, UNSPECIFIED Status: Chronic (6) HTN (hypertension) Acelerated HTN -on toprol--inc'd the dose and added hydralazine -not ocntrolled -no acEi/arb as her Cr high OPHELIA on chronic, Prob Diabetic nephropathy with current cr of 1.78 --resolved -back to baseline Morbid obesity. SHE NEEDS AMBULATORY O2 STATUS
[2020-01-01] MEDS: Atorvastatin Calcium 20 MG TAB PO SCH (21:34)
[2020-01-01] MEDS ORDERED: Senokot S 8.6-50 MG TAB PO PRN (23:34)
[2020-01-02] MEDS: Labetalol HCl 100 MG/20 ML VIAL SLOW IVP PRN ×2 (05:13)
[2020-01-02] MEDS ORDERED: hydrALAZINE 25 MG TAB PO SCH (09:00)
[2020-01-02] MEDS: guaiFENesin ER 600 MG TAB PO SCH ×2 (10:10→20:21)
[2020-01-02] MEDS: Aspirin 325 MG TAB PO SCH (10:10)
[2020-01-02] MEDS: Gabapentin 300 MG CAP PO SCH ×2 (10:10→20:21)
[2020-01-02] MEDS: methylPREDNISolone Sod Succ/PF 125 MG/2 ML VIAL IVP SCH (10:11)
[2020-01-02] MEDS: cefTRIAXone\\ROCEPHIN 1 GM in Sodium Chloride 0.9% 100 ML IVPB SCH (10:14)
[2020-01-02] MEDS ORDERED: hydrALAZINE 10 MG TAB PO PRN (11:51)
[2020-01-02] MEDS ORDERED: predniSONE 20 MG TAB PO SCH (12:15)
--- NOTE | 2020-01-02 12:18 | PDOC.HOSPP ---
- Subjective Encounter Date: 01/02/20 Encounter Time: 10:00 Subjective: did 2 rounds today, as pt does not want to leave today; no iv access. BP little high and being titrated. though she had long course of abx for amandeep pneumonia, it takes times to completely resolve. - Objective Vital Signs & Weight: Vital Signs (12 hours) Temp Pulse Resp BP BP Pulse Ox 01/02/20 11:45 97.9 F 70 16 171/80 H 95 01/02/20 10:23 82 16 92 L 01/02/20 10:21 70 16 98 01/02/20 10:10 67 183/84 H 01/02/20 08:08 97.9 F 78 20 173/77 H 99 01/02/20 06:41 79 16 91 L 01/02/20 06:40 71 20 91 L 01/02/20 05:13 74 181/79 H 01/02/20 04:00 97.7 F 74 20 181/79 H 98 01/02/20 02:45 96 Weight Admit Weight 367 lb Weight 406 lb 12.046 oz Most Recent Monitor Data Heart Rate from ECG 80 NIBP 126/82 NIBP BP-Mean 96 Respiration from ECG 20 SpO2 98 I&O: 01/01/20 01/02/20 01/03/20 06:59 06:59 06:59 Intake Total 1200 538 Output Total 1300 Balance -100 538 Result Diagrams: 01/01/20 09:20 01/01/20 09:20 Additional Labs: Accuchecks 01/02/20 01/01/20 01/01/20 05:16 21:04 16:34 POC Glucose 231 H 313 H 236 H 01/01/20 11:05 POC Glucose 209 H Hospitalist ROS - Medication Medications: Active Medications Generic Name Dose Route Start Last Admin Trade Name Freq PRN Reason Stop Dose Admin Acetaminophen 650 mg 12/28/19 04:16 12/28/19 12:43 Tylenol PO 650 mg Q4H PRN Administration Headache/Fever or Pain Acetaminophen/Codeine Phosphate 2 tab 12/28/19 22:18 12/31/19 21:33 Tylenol #3 PO 2 tab Q6H PRN Administration Moderate Pain (4-6) Albuterol/Ipratropium 3 ml 12/28/19 04:16 12/28/19 19:12 Duoneb NEB 3 ml [id number] PRN Administration SOB &/or Wheezing Albuterol/Ipratropium 3 ml 12/28/19 22:30 01/02/20 10:21 Duoneb EZPAP 3 ml [id number] LIUDMILA Administration Aspirin 325 mg 12/29/19 09:00 01/02/20 10:10 Aspirin PO 325 mg DAILY LIUDMILA Administration Atorvastatin Calcium 20 mg 12/28/19 21:00 01/01/20 21:34 Lipitor PO 20 mg HS LIUDMILA Administration Benzonatate 100 mg 12/28/19 22:18 01/01/20 21:44 Tessalon PO 100 mg Q6H PRN Administration Cough Gabapentin 600 mg 12/28/19 21:00 01/02/20 10:10 Neurontin PO 600 mg BID LIUDMILA Administration Guaifenesin 600 mg 12/29/19 09:00 01/02/20 10:10 Mucinex PO 600 mg Q12HR LIUDMILA Administration Insulin Human Regular 0 units 12/28/19 20:00 12/28/19 21:05 Humulin R FS 1 unit ASDIR LIUDMILA Administration Labetalol HCl 10 mg 01/01/20 23:33 01/02/20 05:13 Normodyne SLOW IVP 10 mg Q4H PRN Administration Systolic BP > 180 Metoprolol Succinate 100 mg 01/02/20 09:00 01/02/20 10:13 Toprol Xl PO 100 mg DAILY LIUDMILA Administration Ondansetron HCl 4 mg 12/28/19 12:27 12/29/19 08:40 Zofran SLOW IVP 4 mg Q6H PRN Administration Nausea/Vomiting Sodium Chloride 10 ml 12/28/19 09:00 01/02/20 10:13 Flush - Normal Saline IVF 10 ml Q12HR LIUDMILA Administration - Exam General Appearance: NAD, awake alert Eye: PERRL ENT: normocephalic atraumatic Heart: RRR Respiratory: no wheezes, normal chest expansion, no tachypnea, rales, rhonchi Gastrointestinal: soft, normal bowel sounds Neurological: cranial nerve grossly intact Hosp A/P - Plan Hosp A/P (1) Myocardial infarction type 2 Code(s): I21.A1 - MYOCARDIAL INFARCTION TYPE 2 Status: Acute b/l pneumonia Pneumonia due to Streptococcus pneumoniae and recent fluu and recent PNA in that has been treated cont rocephine/zithromax iv cont nebs (3) Acute respiratory failure with hypoxia Code(s): J96.01 - ACUTE RESPIRATORY FAILURE WITH HYPOXIA Status: Acute (4) DM type 2 (diabetes mellitus, type 2) also steroid induced hyperglycemia -a1c 7.4 BG still high - on SSI (5) Dyslipidemia Code(s): E78.5 - HYPERLIPIDEMIA, UNSPECIFIED Status: Chronic (6) HTN (hypertension) Acelerated HTN -on toprol--inc'd the dose and added hydralazine -not ocntrolled -no acEi/arb as her Cr high OPHELIA on chronic, Prob Diabetic nephropathy with current cr of 1.78 --resolved -back to baseline Morbid obesity. SHE NEEDS AMBULATORY O2 STATUS--not qualified. did 2 rounds today, as pt does not want to leave today; no iv access. BP little high and being titrated. though she had long course of abx for amandeep pneumonia, it takes times to completely resolve. pt does not want to go to the rehab. clinically better for discharge. suboptimally controlled BP at home, with acute stress of PNA, expcted BP to be labile. she needs home monitoring and adjust the dose by PCP. hopefully, they will go home tomorrow!!!!!!!
[2020-01-02] MEDS: hydrALAZINE 25 MG TAB PO SCH ×2 (14:58→20:20)
[2020-01-02] MEDS: Atorvastatin Calcium 20 MG TAB PO SCH (20:20)
[2020-01-02] MEDS: Benzonatate 100 MG CAP PO PRN (20:27)
[2020-01-03] MEDS: Acetaminophen 325 MG TAB PO PRN (05:34)
[2020-01-03] MEDS: Benzonatate 100 MG CAP PO PRN (06:58)
[2020-01-03] MEDS ORDERED: predniSONE 20 MG TAB PO SCH (08:00)
[2020-01-03] MEDS: Gabapentin 300 MG CAP PO SCH ×2 (08:05→20:08)
[2020-01-03] MEDS: guaiFENesin ER 600 MG TAB PO SCH ×2 (08:05→20:09)
[2020-01-03] MEDS: Aspirin 325 MG TAB PO SCH (08:05)
[2020-01-03] MEDS: hydrALAZINE 25 MG TAB PO SCH ×4 (08:06→20:09)
[2020-01-03] MEDS ORDERED: Furosemide 20 MG TAB PO SCH (09:30)
[2020-01-03] MEDS ORDERED: hydrALAZINE 25 MG TAB PO SCH (10:00)
[2020-01-03 10:21] LABS: Anion Gap 10 mmol/L (10-20); BUN (Urea Nitrogen) 26 mg/dL (9.8-20.1); Calc. Creatinine Clearance 201 mL/min (70-130); Calcium 9.1 mg/dL (7.8-10.44); Carbon Dioxide 26 mmol/L (22-29); Chloride 106 mmol/L (98-107); Estimated GFR-MDRD 65; Glucose 182 mg/dL (70-105); Sodium 137 mmol/L (136-145)
[2020-01-03 10:46] LABS: Hemoglobin 10.4 g/dL (12.0-16.0); Mean Corpuscular HGB CONC 31.7 g/dL (32.0-36.0); Mean Corpuscular Hemoglobin 28.7 pg (27.0-31.0); Mean Corpuscular Volume 90.5 fL (78.0-98.0); Mean Platelet Volume 7.9 fL (7.4-10.4); Platelet Count 291 thou/uL (130-400); RBC Distribution Width 13.2 % (11.5-14.5); Red Blood Cell (RBC) Count 3.64 mill/uL (4.20-5.40); White Blood Cell (WBC) Count 19.3 thou/uL (4.8-10.8)
[2020-01-03 10:56] LABS: Band 3 % (5-11); Lymphocytes 19 % (21-51); MDiff Complete? YES; Monocytes 6 % (0-10); Myelocyte 1 % (0-0); Neutrophil 71 % (42-75); Platelet Morphology Comment Appears Adequate; Polychromasia SLIGHT = 2-3 cells (100X) (0-2/hpf)
[2020-01-03 13:28] VITALS: BMI 60.9
[2020-01-03] MEDS ORDERED: cloNIDine 0.1 MG TAB PO PRN (15:32)
--- NOTE | 2020-01-03 15:33 | PDOC.HOSPP ---
- Subjective Encounter Date: 01/03/20 Encounter Time: 10:20 Subjective: she feels the same like yesterday, some congestion, but lung sounds are better today in my exam. h.e. her BP is high. talk to RN and readings are done prior to BP meds given. pt states that she had sleep study last year and no MAME. due to her obesity, i am concerned that she may have obesity hypoventilation syndrome as her pneumonia seems to be recurrent and not getting better as rapid as we would expect. talk to Dr. Welsh, who may see her today. - Objective Vital Signs & Weight: Vital Signs (12 hours) Temp Pulse Resp BP BP Pulse Ox 01/03/20 14:57 67 16 97 01/03/20 11:44 98.3 F 73 17 176/74 H 93 L 01/03/20 11:12 70 16 98 01/03/20 09:58 73 184/79 H 01/03/20 07:52 97.4 F L 79 18 195/79 H 98 01/03/20 07:04 92 L 01/03/20 07:02 71 16 92 L 01/03/20 07:00 79 16 92 L Weight Admit Weight 367 lb Weight 388 lb 14.327 oz Most Recent Monitor Data Heart Rate from ECG 80 NIBP 126/82 NIBP BP-Mean 96 Respiration from ECG 20 SpO2 98 I&O: 01/02/20 01/03/20 01/04/20 06:59 06:59 06:59 Intake Total 538 600 Balance 538 600 Result Diagrams: 01/03/20 09:41 01/03/20 09:41 Additional Labs: Accuchecks 01/03/20 01/03/20 01/02/20 10:57 05:22 20:30 POC Glucose 280 H 180 H 211 H 01/02/20 16:56 POC Glucose 175 H Hospitalist ROS - Medication Medications: Active Medications Generic Name Dose Route Start Last Admin Trade Name Freq PRN Reason Stop Dose Admin Acetaminophen 650 mg 12/28/19 04:16 01/03/20 05:34 Tylenol PO 650 mg Q4H PRN Administration Headache/Fever or Pain Acetaminophen/Codeine Phosphate 2 tab 12/28/19 22:18 12/31/19 21:33 Tylenol #3 PO 2 tab Q6H PRN Administration Moderate Pain (4-6) Albuterol/Ipratropium 3 ml 12/28/19 04:16 12/28/19 19:12 Duoneb NEB 3 ml [id number] PRN Administration SOB &/or Wheezing Albuterol/Ipratropium 3 ml 12/28/19 22:30 01/03/20 14:57 Duoneb EZPAP 3 ml [id number] LIUDMILA Administration Aspirin 325 mg 12/29/19 09:00 01/03/20 08:05 Aspirin PO 325 mg DAILY LIUDMILA Administration Atorvastatin Calcium 20 mg 12/28/19 21:00 01/02/20 20:20 Lipitor PO 20 mg HS LIUDMILA Administration Benzonatate 100 mg 12/28/19 22:18 01/03/20 06:58 Tessalon PO 100 mg Q6H PRN Administration Cough Gabapentin 600 mg 12/28/19 21:00 01/03/20 08:05 Neurontin PO 600 mg BID LIUDMILA Administration Guaifenesin 600 mg 12/29/19 09:00 01/03/20 08:05 Mucinex PO 600 mg Q12HR LIUDMILA Administration Hydralazine HCl 100 mg 01/03/20 09:00 01/03/20 09:59 Apresoline PO Not Given TID [facility] Insulin Human Regular 0 units 12/28/19 20:00 12/28/19 21:05 Humulin R FS 1 unit ASDIR LIUDMILA Administration Labetalol HCl 10 mg 01/01/20 23:33 01/02/20 05:13 Normodyne SLOW IVP 10 mg Q4H PRN Administration Systolic BP > 180 Levofloxacin 750 mg 01/03/20 06:00 01/03/20 05:34 Levaquin PO 750 mg 0600 LIUDMILA Administration Metoprolol Succinate 100 mg 01/02/20 09:00 01/03/20 08:06 Toprol Xl PO 100 mg DAILY LIUDMILA Administration Ondansetron HCl 4 mg 12/28/19 12:27 12/29/19 08:40 Zofran SLOW IVP 4 mg Q6H PRN Administration Nausea/Vomiting Prednisone 60 mg 01/03/20 08:00 01/03/20 08:05 Prednisone PO 60 mg QAM-WM LIUDMILA Administration Sodium Chloride 10 ml 12/28/19 09:00 01/03/20 08:06 Flush - Normal Saline IVF Not Given Q12HR LIUDMILA - Exam General Appearance: NAD, awake alert Eye: PERRL ENT: normocephalic atraumatic Neck: supple Heart: RRR Respiratory: normal chest expansion, no tachypnea, rhonchi Gastrointestinal: soft, normal bowel sounds Neurological: cranial nerve grossly intact, no focal deficits Hosp A/P - Plan Hosp A/P (1) Myocardial infarction type 2 Code(s): I21.A1 - MYOCARDIAL INFARCTION TYPE 2 Status: Acute b/l pneumonia Pneumonia due to Streptococcus pneumoniae and recent fluu and recent PNA in that has been treated cont rocephine/zithromax iv cont nebs (3) Acute respiratory failure with hypoxia Code(s): J96.01 - ACUTE RESPIRATORY FAILURE WITH HYPOXIA Status: Acute (4) DM type 2 (diabetes mellitus, type 2) also steroid induced hyperglycemia -a1c 7.4 BG still high - on SSI (5) Dyslipidemia Code(s): E78.5 - HYPERLIPIDEMIA, UNSPECIFIED Status: Chronic (6) HTN (hypertension) Acelerated HTN -on toprol--inc'd the dose and added hydralazine -not controlled -no acEi/arb as her Cr high------------> improved, but allergic to ACEI OPHELIA on chronic, Prob Diabetic nephropathy with current cr of 1.78 --resolved -back to baseline Morbid obesity. SHE NEEDS AMBULATORY O2 STATUS--->not qualified. did 2 rounds today, as pt does not want to leave today; no iv access. BP little high and being titrated. though she had long course of abx for oct pneumonia, it takes times to completely resolve. pt does not want to go to the rehab. pt states that she had sleep study last year and no MAME and did not require cpap. Due to her obesity, i am concerned that she may have obesity hypoventilation syndrome as her pneumonia seems to be recurrent and not getting better as rapid as we would expect. talk to Dr. Welsh, who may see her today. Echo Gra II DD; EF 55%, tr MR and TR, LAE and RV fn ok.
[2020-01-03 16:30] LABS: Bacteria/HPF None Seen HPF (None Seen); Bilirubin Negative (Negative); Blood, Urine Negative (Negative); Clarity Clear (Clear); Glucose, Urine (Dipstick) Normal (Negative); Leukocyte 25 Leu/uL (Negative); Nitrite Negative (Negative); Protein, Urine (Dipstick) 50 mg/dL (Neg-Trace); RBC/HPF 0-3 HPF (0-3); Squamous Epithelial 0-3 HPF (0-3); Urobilinogen Normal mg/dL (Less than 2)
[2020-01-03 16:32] LABS: Urine Culture Reflex Yes Yes
--- NOTE | 2020-01-03 17:53 | CON ---
DATE OF CONSULTATION: 01/03/2020 SERVICE: Pulmonary Medicine. REASON FOR CONSULTATION: Community-acquired pneumonia. HISTORY OF PRESENT ILLNESS: The patient is a 54-year-old morbidly obese white female with past medical history significant for severe peripheral vascular disease. She is in her usual state of health when she had onset of increasing shortness of breath, cough, bringing up purulent sputum, and high fevers. She presented to the emergency department where she was given a course of antibiotic. Her fever has gone away. Her cough is improving a little bit. That being said, she feels that there is still a stuff that stuck down in her chest that she can no longer liberate. She is on a combination of mucolytic and a cough suppressant. She relates having had a polysomnogram within the past year. At that point, she was told that she did not suffer from sleep apnea. She does not have any known lung disease that she is aware of. Otherwise, she is being considered for discharge tomorrow, and her hospitalist would like for the lung doctor to visit with her and consider her for an outpatient followup. The patient has no specific complaints currently otherwise. Her appetite is improved. PAST MEDICAL HISTORY: 1. Hypertension. 2. Dyslipidemia. 3. Type 2 diabetes mellitus. 4. Peripheral vascular disease. PAST SURGICAL HISTORY: 1. section x5. 2. Tubal ligations. 3. Cholecystectomy. 4. Foot surgery. FAMILY HISTORY: Noncontributory. SOCIAL HISTORY: She has about a [id number] history of smoking. She smoked 2 to 3 packs on a daily basis for about 15 years. That being said, she quit in . Denies any alcohol or illicit drugs currently. She has no exposure to chemicals, dust, asbestos, or tuberculosis. ALLERGIES: [place] INHIBITORS, KETORALAC, TRAMADOL, AND LATEX-BASED ADHESIVES. MEDICATIONS: List of her medications yet were reviewed. Multiple updates were made at this time. REVIEW OF SYSTEMS: General; head, ears, eyes, nose, and throat; cardiovascular; respiratory; GI; ; musculoskeletal; neurologic; and skin is negative except as mentioned in the HPI. PHYSICAL EXAMINATION: VITAL SIGNS: Afebrile, pulse 73, blood pressure 176/74, respirations 17, and saturation 97% on room air. GENERAL: The patient is awake and alert, in no apparent distress. LUNGS: Decreased air entry. There is no prolonged expiratory phase or wheezing appreciated. HEART: Normal rate. Regular. ABDOMEN: Soft, nontender, and nondistended. Bowel sounds are positive. MUSCULOSKELETAL: No cyanosis or clubbing. There is trace pitting in the bilateral lower extremities. NEUROLOGIC: Grossly nonfocal. LABORATORY DATA: WBC 19.3, hemoglobin 10.4, and platelets 291,000. Neutrophils are 71% on top of 3% bands. Lymphocyte count and monocytes are coming back up. Creatinine 0.9. Basic metabolic profile is otherwise unremarkable. Cortisol level 7.9. TSH 1.5. Blood sugars are elevated. BNP is elevated. Troponin was downtrending at 3.5. TSH fell within the normal limits. IMAGING STUDIES: 1. CTA of the chest demonstrates findings compatible with a little bit of volume overload superimposed on infiltrates that are scattered throughout the right upper lobe and bilateral lower lobes. Left atrium is dilated. No pulmonary embolism is otherwise identified. 2. Echocardiogram demonstrates 55% to 60% ejection fraction, 2/3 diastolic dysfunction. Mild to moderately dilated left atrium. ASSESSMENT: 1. Acute hypoxic respiratory failure, resolved. 2. Healthcare-associated pneumonia. 3. Acute bronchitis versus chronic obstructive pulmonary disease with acute exacerbation. 4. [id number] myocardial infarction secondary to demand. 5. [id number]-bi-azupmpy diastolic heart failure. DISCUSSION AND PLAN: The patient is stable for transition out of the hospital from a purely respiratory standpoint. She will need a repeat chest x-ray in 4 to 6 weeks in the outpatient basis to make certain these infiltrates have cleared. She would benefit from an outpatient pulmonary followup. I have asked her to follow up with Dr. Hubbard in the outpatient setting as she had a previously established relationship with him while once being in the hospital. It is not clear whether or not she has COPD, asthma, or just simply acute bronchitis. This can be teased apart in the outpatient setting. Pulmonary will continue to follow while the patient remains inhouse. That being said, she is feeling that her shortness of breath has improved to the point of being safe for discharge, she can be considered for transition home tomorrow. Job ID: [id number]
[2020-01-03] MEDS: Atorvastatin Calcium 20 MG TAB PO SCH (20:09)
[2020-01-03] MEDS: Acetaminophen/Codeine 30-300mg Tablet PO PRN (20:09)
[2020-01-04] MEDS: Acetaminophen/Codeine 30-300mg Tablet PO PRN (02:31)
[2020-01-04] MEDS: Benzonatate 100 MG CAP PO PRN ×2 (02:31→09:56)
[2020-01-04] MEDS ORDERED: predniSONE 20 MG TAB PO SCH (08:00)
[2020-01-04 08:10] VITALS: TEMP 97.7
[2020-01-04 08:56] LABS: Hemoglobin 9.5 g/dL (12.0-16.0); Mean Corpuscular HGB CONC 32.9 g/dL (32.0-36.0); Mean Corpuscular Hemoglobin 29.6 pg (27.0-31.0); Mean Corpuscular Volume 89.7 fL (78.0-98.0); Mean Platelet Volume 7.7 fL (7.4-10.4); Platelet Count 247 thou/uL (130-400); RBC Distribution Width 13.5 % (11.5-14.5); Red Blood Cell (RBC) Count 3.22 mill/uL (4.20-5.40); White Blood Cell (WBC) Count 15.3 thou/uL (4.8-10.8)
[2020-01-04] MEDS ORDERED: Amlodipine 5 MG TAB PO SCH (09:00)
[2020-01-04 09:04] LABS: Chloride 106 mmol/L (98-107); Potassium 4.8 mmol/L (3.5-5.1); Sodium 136 mmol/L (136-145)
[2020-01-04 09:05] LABS: Calcium 8.6 mg/dL (7.8-10.44); Glucose 179 mg/dL (70-105)
[2020-01-04 09:07] LABS: Anion Gap 9 mmol/L (10-20); Carbon Dioxide 26 mmol/L (22-29)
[2020-01-04 09:08] LABS: Calc. Creatinine Clearance 216 mL/min (70-130); Estimated GFR-MDRD 72
[2020-01-04 09:09] LABS: BUN (Urea Nitrogen) 25 mg/dL (9.8-20.1)
[2020-01-04 09:26] LABS: Band 2 % (5-11); Lymphocytes 22 % (21-51); MDiff Complete? YES; Monocytes 5 % (0-10); Neutrophil 71 % (42-75); RBC Morphology Normal
[2020-01-04] MEDS: guaiFENesin ER 600 MG TAB PO SCH (09:54)
[2020-01-04] MEDS: Aspirin 325 MG TAB PO SCH (09:54)
[2020-01-04] MEDS: Gabapentin 300 MG CAP PO SCH (09:54)
[2020-01-04] MEDS: hydrALAZINE 25 MG TAB PO SCH (10:01)
--- NOTE | 2020-01-04 10:39 | RAD ---
CHEST 2 VIEWS: Date: 01/04/2020 HISTORY: Follow-up pneumonia. COMPARISON: 12/29/2019. FINDINGS: Heart size is within upper range of normal. Bronchovascular markings are slightly prominent, but the previously noted vascular congestion and perihilar linear interstitial changes have resolved. No new confluent pneumonia, overt edema, or significant pleural effusion. IMPRESSION: Borderline heart size. No significant acute process. POS: TPC
[2020-01-04 13:05] VITALS: BP 163/72
--- NOTE | 2020-01-04 19:08 | DIS ---
DATE OF ADMISSION: 12/28/2019 DATE OF DISCHARGE: 01/04/2020 DISCHARGE DIAGNOSES: 1. Myocardial infarction type 2/demand ischemia. 2. Bilateral pneumonia. 3. Pneumonia secondary to strep pneumoniae and with history of recent flu and pneumonia in October. 4. Acute respiratory failure with hypoxia. 5. Type 2 diabetes mellitus. 6. Steroid-induced hyperglycemia. 7. Dyslipidemia. 8. Accelerated hypertension, suboptimally controlled. 9. Not a candidate for TAHMINA inhibitor due to chronic kidney injury and creatinine was high and more over she is allergic to TAHMINA inhibitors. 10. Morbid obesity. 11. Unresolved pneumonia since October. DISCHARGE MEDICATIONS: 1. Hydralazine 25 mg three times a day. 2. Levaquin 750 mg daily for 7 days. 3. Prednisone 40 mg daily for 7 days. 4. Toprol-XL 100 mg daily for 7 days. 5. Simvastatin 40 mg at bedtime. 6. Gabapentin, prescription given 600 mg 3 times a day. 7. Lasix 20 mg as needed. 8. Insulin aspart as a sliding scale. PHYSICAL EXAMINATION: VITAL SIGNS: On the day of discharge, she is afebrile with blood pressure 149/ 69. GENERAL: She is alert, oriented x3. LUNGS: Sounds are much better today and she also agreeable to go home today. CARDIOVASCULAR: Regular rate and rhythm without murmurs, rubs, or gallops. LUNGS: Clear to auscultation bilaterally. There is not much wheezing, but she does have significant crackles, mostly in the upper lung zones. ABDOMEN: Soft with good bowel sounds. She is quite obese. HOSPITAL COURSE: This is a 54-year-old female, admitted with community-acquired pneumonia with underlying history of flu and pneumonia in October. Please refer to history and physical and daily progress notes for details. Over the course of the time, her lung conditions improved to a level she is ambulating without the need for Oxygen. Ambulatory oxygen status evaluated and she is not qualified for home oxygen. The patient had acute kidney injury that is resolved with hydration and good p.o. intake and her current baseline creatinine 0.8. The patient has suboptimally controlled hypertension with only Toprol 25 mg daily. We have titrated her Toprol to 100 mg daily and still she requiring additional blood pressure medication, so hydralazine was started and tapered to bring her level to blood pressure of 149/69 today. As part of the quick workup for her hypertension, did random cortisol and TSH, those are all in the normal range. The patient needs ongoing titration of these meds with the help of primary care physician. Her daughter is also a nurse and quite knowledgeable. After counseling during each rounding and education on her blood pressure control as well as diet and exercise. She is clinically improved enough to discharge her home today. DISCHARGE INSTRUCTIONS: Activity as tolerated. Diabetic diet. Follow up with the primary care physician in one week. TIME SPENT: Discharge time took over 30 minutes. Job ID: [id number] TOPHER
== END 2020-01-04 12:50 | disposition home or self-care (01) | DRG 193 ==
LOC: ERS 21:35 → IMCU/EMU 12-28 02:39 → 2NO 12-28 16:11
PROVIDERS: ADMIT Internal Medicine Sleep Medicine; ATTEND Internal Medicine
DX: J13 Pneumonia due to Streptococcus pneumoniae (principal); I21.A1 Myocardial infarction type 2; J96.01 Acute respiratory failure with hypoxia; I50.33 Acute on chronic diastolic (congestive) heart failure; N17.9 Acute kidney failure, unspecified; I13.0 Hypertensive heart and chronic kidney disease with heart failure and stage 1 through stage 4 chronic kidney disease, or unspecified chronic kidney disease; Z68.44 Body mass index [BMI] 60.0-69.9, adult; E11.65 Type 2 diabetes mellitus with hyperglycemia; E78.5 Hyperlipidemia, unspecified; E66.01 Morbid (severe) obesity due to excess calories; M79.7 Fibromyalgia; T38.0X5A Adverse effect of glucocorticoids and synthetic analogues, initial encounter; J20.9 Acute bronchitis, unspecified; K31.84 Gastroparesis; E11.22 Type 2 diabetes mellitus with diabetic chronic kidney disease; D63.1 Anemia in chronic kidney disease; M17.0 Bilateral primary osteoarthritis of knee; N18.3 Chronic kidney disease, stage 3 (moderate); E11.40 Type 2 diabetes mellitus with diabetic neuropathy, unspecified; I73.9 Peripheral vascular disease, unspecified; Z98.51 Tubal ligation status; Z79.4 Long term (current) use of insulin; Z90.49 Acquired absence of other specified parts of digestive tract; Z88.8 Allergy status to other drugs, medicaments and biological substances; Z88.1 Allergy status to other antibiotic agents; Z91.040 Latex allergy status; Z88.6 Allergy status to analgesic agent; Z87.891 Personal history of nicotine dependence
CPT/HCPCS: 36415; 36416; 71045; 71046; 71275; 80048; 81001; 82533; 82553; 83036; 83880; 84443; 84484; 85025; 87040; 87086; 87324; 87449; 87633; 93005; 93010; 93306; 94640; 94667; 94668; 96365; 96372; J0456; J0696; J1650; J1815; J2405; J2765; J2930; J3490; J7050; J7512; J7620

== ENCOUNTER 2020-12-02 15:18 | Inpatient (IN) | payer OTHER ==
[2020-12-02] MEDS ORDERED: Ondansetron PF 4 MG/2 ML Vial ONE (15:47)
[2020-12-02 15:52] LABS: #Eosinphils 0.1 thou/uL (0.0-0.7); #Lymphocytes 1.4 thou/uL (1.20-3.40); #Monocytes 0.3 thou/uL (0.11-0.59); #Neutrophils 16.8 thou/uL (1.40-6.50); %Basophils 0.1 % (0.0-1.0); %Eosinophils 0.3 % (0.0-10.0); %Lymphocytes 7.5 % (21.0-51.0); %Monocytes 1.5 % (0.0-10.0); %Neutrophils 90.6 % (42.0-75.0); Hemoglobin 11.6 g/dL (12.0-16.0); Mean Corpuscular HGB CONC 30.8 g/dL (32.0-36.0); Mean Corpuscular Hemoglobin 28.8 pg (27.0-31.0); Mean Corpuscular Volume 93.6 fL (78.0-98.0); Mean Platelet Volume 8.3 fL (7.4-10.4); Platelet Count 329 thou/uL (130-400); RBC Distribution Width 13.3 % (11.5-14.5); Red Blood Cell (RBC) Count 4.04 mill/uL (4.20-5.40); White Blood Cell (WBC) Count 18.5 thou/uL (4.8-10.8)
[2020-12-02] MEDS ORDERED: Metoclopramide HCl 10 MG/2 ML VIAL ONE (16:11)
[2020-12-02 16:22] LABS: Base Excess-Venous -17.9 mmol/L (-2.0 to 3.0); Bicarbonate (HCO3v) 11.7 mmol/L (22.0-28.0); Chloride 97 mmol/L (98-107); Hemoglobin - Calc 13.2 g/dL (12.0-16.0); Sodium 121 mmol/L (138-145); vO2 Saturation-calc 77.7 % (60.0-85.0)
[2020-12-02] MEDS ORDERED: INSULIN REGULAR IN 0.9 % NACL 100 UNIT/100 ML BAG ONE ×3 (16:42→22:50)
[2020-12-02] MEDS ORDERED: HumaLOG 300 UNITS/3 ML VIAL ONE (16:45)
[2020-12-02 16:47] LABS: ALT (SGPT) 15 U/L (8-55); AST (SGOT) 17 U/L (5-34); Albumin 3.7 g/dL (3.5-5.0); Alkaline Phosphatase 142 U/L (40-110); Anion Gap 32 mmol/L (10-20); BUN (Urea Nitrogen) 55 mg/dL (9.8-20.1); Bilirubin, Total 0.5 mg/dL (0.2-1.2); Calc. Creatinine Clearance 0 mL/min (70-130); Calcium 8.5 mg/dL (7.8-10.44); Carbon Dioxide 11 mmol/L (22-29); Chloride 92 mmol/L (98-107); Globulin 2.8 g/dL (2.4-3.5); Glucose 834 mg/dL (70-105); Potassium 6.2 mmol/L (3.5-5.1); Protein, Total 6.5 g/dL (6.0-8.3); Sodium 129 mmol/L (136-145)
[2020-12-02] MEDS ORDERED: Insulin Regular 300 UNITS/3 ML VIAL ONE (16:55)
--- NOTE | 2020-12-02 17:05 | RAD ---
XR Chest 1 View Portable History: Chest pain Comparison: Radiograph December Findings: Heart size is enlarged. Pulmonary arteries are distended. No pneumothorax. No focal airspac e consolidation. No acute osseous abnormality. Impression: Cardiomegaly and pulmonary hypertension.
[2020-12-02] MEDS ORDERED: Cefepime 2 GM VIAL ONE (17:06)
[2020-12-02] MEDS ORDERED: Morphine 4 MG/ML VIAL ONE (17:22)
[2020-12-02] MEDS ORDERED: Promethazine HCl 25 MG/ML VIAL ONE ×2 (17:24→21:53)
[2020-12-02] MEDS ORDERED: Ondansetron ODT 4 MG TAB PO PRN (18:02)
[2020-12-02] MEDS ORDERED: Sodium Chloride 0.9% 1,000 ML IV PRN ×4 (18:02)
[2020-12-02] MEDS ORDERED: D5 1/2 NS w/20 mEq KCL 1,000 ML IV PRN (18:02)
[2020-12-02] MEDS ORDERED: Acetaminophen 650 MG Suppository PR PRN (18:02)
[2020-12-02] MEDS ORDERED: NS 0.9% w/ 20 MEQ KCL 1,000 ML IV PRN ×2 (18:02)
[2020-12-02] MEDS ORDERED: Dextrose 5 %-0.45 % NaCl 1,000 ML IV PRN (18:02)
[2020-12-02] MEDS ORDERED: Ondansetron PF 4 MG/2 ML Vial IVP PRN (18:02)
[2020-12-02] MEDS ORDERED: Electrolyte Replacement Protocol 1 EACH IVPB SCH (18:02)
[2020-12-02] MEDS ORDERED: HUMULIN R 100 UNITS in Sodium Chloride 0.9% 100 ML IVPB SCH (18:15)
[2020-12-02] MEDS ORDERED: Electrolyte Replacement Protocol FS PRN (18:30)
[2020-12-02 18:55] LABS: Troponin I 0.645 ng/mL (< 0.028)
--- NOTE | 2020-12-02 19:14 | PDOC.FPRHP ---
- History of Present Illness Chief Complaint: vomiting, elevated blood glucose History of Present Illness: Patient is a 55F with PMHX of DM1, on insulin pump, gastroparesis, HTN, fibromyalgia, sciatica, peripheral neuropathy, asthma, obesity, HLD, bilateral knee OA, peripheral vascular disease, lumbar stress fxr that was brought to the ED by her daughter, who is an AVIATION PROJECT ENGINEER, for persistent vomiting in the setting of elevated blood glucose. Daughter states that patient has had decreased po intake since tuesday evening, though she has been drinking lots of fluids. Last night her blood glucose meter read "high" so the patient gave herself 75u bolus of novolog and repeat blood glucose was 130s. Since 330am this morning the patient has vomiting approximately 13 times, blood sugars throughout the day: 238, 348, 388. Zahira ent's pump gives patient a continuous infusion of 3.75u/hr and then patient will carb-count and bolus throughout the day. Her and her daughter have recently started the keto diet again for the past few weeks, and patient's daughter states that patient does not particularly eat a lot of "Sweets." Last DKA episode was 3 years ago, and patient's A1C at that time was approx 14. Since having the pump patient's most recent A1C in August was 7.2. 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 Borden. She also sees Dr. roman at wound care for her diabetic ulcer, that has improved since her daughter started using medihoney. PCP: Valentine Cavazos- [facility] ED Course: 25mg promethazine, 8mg morphine, 2g cefapime, 1L NS, 10mg reglan, 8mg zofran, 1L NS - Allergies/Adverse Reactions Allergies Allergy/AdvReac Type Severity Reaction Status Date / Time TAHMINA Inhibitors Allergy Verified 12/03/20 00:35 ketorolac [From Toradol] Allergy Verified 12/03/20 00:35 tramadol Allergy Verified 12/03/20 00:35 latex based adhesives Allergy Uncoded 01/13/20 23:55 - Home Medications Medication Instructions Recorded Confirmed Type Insulin Aspart [Novolog] 3.75 unit SQ ASDIR 02/04/19 12/03/20 History Hydrochlorothiazide 25 mg PO DAILY 04/16/19 12/03/20 History Furosemide 1 tab PO DAILY PRN 11/02/19 12/03/20 History Simvastatin [Zocor] 40 mg PO HS 11/02/19 12/03/20 History Aspirin 325 mg PO DAILY #30 tab 11/10/19 12/03/20 Rx Gabapentin 600 mg PO TID 12/28/19 12/03/20 History BuPROPion XL [Wellbutrin XL] 150 mg PO DAILY 12/03/20 12/03/20 History Metoprolol Succinate [Toprol XL] 25 mg PO DAILY 12/03/20 12/03/20 History - History PMHx: DM1, on insulin pump, gastroparesis, HTN, fibromyalgia, sciatica, peripheral neuropathy, asthma, obesity, HLD, bilateral knee OA, peripheral vascular disease, lumbar stress fxr PSHx: tubal ligation x 2, cholecystectomy, x 5, R ft sx for oseto FHx: mother and grandmother have DM2, daughter has DM1 Social: quit smoking >10 years ago, no alcohol or drug use - Review of Systems General: reports: fever/chills (chills, no fever), weight/appetite/sleep changes (decreased PO intake) Eyes: denies: eye pain, vision changes ENT: denies: nasal congestion, rhinorrhea Respiratory: denies: cough, shortness of breath Cardiovascular: denies: chest pain, palpitation, edema Gastrointestinal: reports: nausea, vomiting, abdominal pain. denies: GI bleeding - Vital signs BP: [93/48] HR: [79] RR: [14] Tmax: [97.4F] Pox: [98]% on [RA] Wt: [175kg] - Physical Exam Constitutional: NAD, awake, alert and oriented, well developed HEENT: normocephalic and atraumatic, EOMI, other (dry mucous membranes) Neck: supple, FROM, trachea midline Chest: no-tender to palpation Heart: RRR, normal S1/S2 Lungs: CTAB, no respiratory distress Abdomen: soft, non-tender, other (morbidly obese) Musculoskeletal: normal structure, normal tone Neurological: no focal deficit, CN II-XII intact Skin: other (healing diabetic foot ulcer R medial foot) Heme/Lymphatic: no unusual bruising or bleeding, no purpura Psychiatric: normal mood and affect, intact recent and remote memory FMR H&P: Results - Labs Result Diagrams: 12/02/20 21:56 12/02/20 21:56 Lab results: WBC 18.5 thou/uL (4.8-10.8) H 12/02/20 15:38 Hgb 11.6 g/dL (12.0-16.0) L 12/02/20 15:38 Hct 37.8 % (36.0-47.0) 12/02/20 15:38 MCV 93.6 fL (78.0-98.0) 12/02/20 15:38 Plt Count 329 thou/uL (130-400) 12/02/20 15:38 Neutrophils % 90.6 % (42.0-75.0) H 12/02/20 15:38 VBG pCO2 41.0 mmHg (40.0-50.0) 12/02/20 16:17 VBG pO2 58.7 mmHg (35.0-45.0) H 12/02/20 16:17 Sodium 129 mmol/L (136-145) L 12/02/20 15:38 Potassium 6.2 mmol/L (3.5-5.1) H 12/02/20 15:38 Chloride 92 mmol/L (98-107) L 12/02/20 15:38 Carbon Dioxide 11 mmol/L (22-29) L 12/02/20 15:38 BUN 55 mg/dL (9.8-20.1) H 12/02/20 15:38 Creatinine 2.13 mg/dL (0.6-1.1) H 12/02/20 15:38 Glucose 834 mg/dL (70-105) H* 12/02/20 15:38 Calcium 8.5 mg/dL (7.8-10.44) 12/02/20 15:38 Total Bilirubin 0.5 mg/dL (0.2-1.2) 12/02/20 15:38 AST 17 U/L (5-34) 12/02/20 15:38 ALT 15 U/L (8-55) 12/02/20 15:38 Alkaline Phosphatase 142 U/L (40-110) H 12/02/20 15:38 CK-MB (CK-2) 13.0 ng/mL (0-6.6) H* 12/02/20 15:38 Serum Total Protein 6.5 g/dL (6.0-8.3) 12/02/20 15:38 Albumin 3.7 g/dL (3.5-5.0) 12/02/20 15:38 Lipase Less than 4 U/L (8-78) L 12/02/20 16:38 - EKG Interpretation EKG: VR 79, NH 178ms, QRS 114ms, QTc [address] depression in aVL, slightly peaked t-waves otherwise no ST elevation or changes from previous EKG - Radiology Interpretation Chest x-ray Status: report reviewed by me (cardiomegaly and pulmonary HTN) FMR H&P: A/P - Plan Patient is a 55F with PMHx of DM1, on insulin pump, gastrparesis, HTN, fibromyalgia, sciatica, peripheral neuropathy, asthma, obesity, HLD, bilateral knee OA, peripheral vascular disease, lumbar stress fxr admitted for: #DKA #Metabolic Acidosis -initial blood gas pH 7.065, CO2 41.0, O2 58.7, bicarb 11.7 -initial blood glucose: 834 -beta-hydroxybutyrate 8.34 -anion gap 26 -uncertain etiology; patient has reportedly relatively good control of blood sugars with insulin pump, possibly due to NSTEMI vs infectious source -DKA protocol started, will continue to monitor BMP q4 with q1h glucose checks -A1C pending #Hyperkalemia -initial potassium 6.2 -expect this to correct with insulin and DKA protocol -will continue to monitor on q4h BMP #NSTEMI -trop 0.596>0.645 -due to GFR will start patient on heparin drip -patient denies cp at this time; new ST depression aVL, no other ST changes noted -plan to consult patient's fluid dynamicist Dr. Miramontes in the am #Leukocytosis -patient has WBC 18.5 with 90% bands -uncertain etiology -blood cultures obtained in ED -as patient is in DKA, suspect possible infectious source as cause -received 2g cefepime in ED, will continue at this time until cultures result #OPHELIA on CKD stage 2 -cr 2.13, GFR 24 -patient has been vomiting and has had decreased po intake, likely cause of OPHELIA -will continue to monitor as patient continues to get fluids via DKA protocol -renally dose medications #Prolonged QTc -QTc 511, avoid prolonging medications #Gastroparesis -will continue phenergan at this time as this seems to help -per daughter zofran never seems to help #HTN -patient's BP are soft, will hold home meds for now #HLD -continue home meds #Fibromyalgia -continue home meds #Hx of lumbar stress fx -daughter states patient takes tylenol 3 approx 1x/wk -will continue to monitor for pain #Healing diabetic foot ulcer -wound care consulted Diet: NPO DVTppx; heparin gtt Dispo: admitted to [facility] for DKA protocol and continued monitoring of BMP and glucose CODE: Full PCP: Yonis Cavazos FMR H&P: Upper Level - Plan Date/Time: 12/02/20 838 I, [], have evaluated this patient and agree with findings/plan as outlined by dietetic intern resident. Pertinent changes/additions are listed here. Addendum - Attending - Attending Attestation Date/Time: 12/03/20 5612 I personally evaluated the patient and discussed the management with Dr. Foley. I agree with the History, Examination, Assessment and Plan documented above with any addition or exceptions noted below. See my event note for details.
[2020-12-02 19:41] LABS: BUN (Urea Nitrogen) 53 mg/dL (9.8-20.1); Calc. Creatinine Clearance 0 mL/min (70-130); Carbon Dioxide Less than 8 mmol/L (22-29); Chloride 96 mmol/L (98-107); Glucose 776 mg/dL (70-105); Magnesium 2.5 mg/dL (1.6-2.6); Phosphorus 7.8 mg/dL (2.3-4.7); Potassium 5.6 mmol/L (3.5-5.1); Sodium 129 mmol/L (136-145)
[2020-12-02] MEDS ORDERED: Promethazine HCl 12.5 MG in Sodium Chloride 0.9% 50 ML IVPB PRN (20:32)
[2020-12-02] MEDS ORDERED: Famotidine/PF 20 mg/2ml Vial SLOW IVP SCH (21:00)
[2020-12-02] MEDS ORDERED: Sodium Bicarb 50 MEQ/50 ML VIAL ONE (21:11)
[2020-12-02 21:18] LABS: SARS-CoV-2 NAA Rapid Test Not Detected (NotDetected)
[2020-12-02] MEDS ORDERED: Acetaminophen 325 MG TAB ONE (21:53)
[2020-12-02] MEDS ORDERED: EPINEPHrine 1 MG/ML AMP ONE (22:17)
[2020-12-02 22:22] LABS: Hemoglobin 11.7 g/dL (12.0-16.0); Platelet Count 272 thou/uL (130-400)
[2020-12-02 22:33] LABS: Hemoglobin A1c 8.6 % (4.0-6.0)
[2020-12-02 22:47] LABS: Anion Gap 26 mmol/L (10-20); BUN (Urea Nitrogen) 53 mg/dL (9.8-20.1); Calc. Creatinine Clearance 0 mL/min (70-130); Chloride 100 mmol/L (98-107); Potassium 5.1 mmol/L (3.5-5.1); Sodium 130 mmol/L (136-145)
[2020-12-02 22:51] LABS: Carbon Dioxide 9 mmol/L (22-29); Glucose 632 mg/dL (70-105)
--- NOTE | 2020-12-02 23:29 | PDOC.EVN ---
Event Note - Event Note Event Note: Seen and evaluated at 2014 on date of admission. Long standing hx IDDM currently controlled on insulin pump. she has hx of gastroparesis and has frequent nausea without vomiting. Starting vomiting 2 days ago and has gotten progressively worse. Denies CP/SOB. Exam remarkable for dry MM. labs c/w DKA and NSTEMI. CXR negative. Admit for DKA. manage per protocol. will start on heparin gtt for NSTEMI since renal function is low. can switch to lovenox once GFR >40. cards consult in AM. will continue to search for source of infection. UA/UCX pending collection at this time. BCx colleted before abx started. continue cefepime until source identified or ruled out. See Dr. Foley' H&P for further details.
[2020-12-02] MEDS ORDERED: Metoclopramide HCl 10 MG/2 ML VIAL IVP PRN (23:43)
[2020-12-02 23:47] VITALS: BMI 60.6
[2020-12-03] MEDS: Heparin 10,000 UNITS/ 10 ML VIAL SLOW IVP SCH ×2 (00:17→20:41)
[2020-12-03] MEDS: Heparin 25,000 units/D5W 500 ML IVPB SCH ×2 (00:18→21:01)
[2020-12-03 02:19] LABS: Bacteria/HPF None Seen HPF (None Seen); Bilirubin Negative (Negative); Blood, Urine Negative (Negative); Clarity Turbid (Clear); Glucose, Urine (Dipstick) Greater than 1000 mg/dL (Negative); Ketone, Urine 10 mg/dL (Negative); Leukocyte Negative Leu/uL (Negative); Nitrite Negative (Negative); Protein, Urine (Dipstick) 100 mg/dL (Neg-Trace); RBC/HPF 0-3 HPF (0-3); Specific Gravity, Urine 1.016 (1.002-1.036); Urobilinogen Normal mg/dL (Less than 2)
[2020-12-03 02:51] LABS: #Eosinphils 0.1 thou/uL (0.0-0.7); #Lymphocytes 2.6 thou/uL (1.20-3.40); #Monocytes 0.9 thou/uL (0.11-0.59); #Neutrophils 14.7 thou/uL (1.40-6.50); %Basophils 0.1 % (0.0-1.0); %Eosinophils 0.3 % (0.0-10.0); %Lymphocytes 14.2 % (21.0-51.0); %Monocytes 4.7 % (0.0-10.0); %Neutrophils 80.7 % (42.0-75.0); Hemoglobin 10.2 g/dL (12.0-16.0); Mean Corpuscular HGB CONC 32.8 g/dL (32.0-36.0); Mean Corpuscular Hemoglobin 28.9 pg (27.0-31.0); Mean Platelet Volume 7.9 fL (7.4-10.4); Platelet Count 292 thou/uL (130-400); RBC Distribution Width 13.4 % (11.5-14.5); Red Blood Cell (RBC) Count 3.52 mill/uL (4.20-5.40); White Blood Cell (WBC) Count 18.3 thou/uL (4.8-10.8)
[2020-12-03 03:01] LABS: Anion Gap 16 mmol/L (10-20); BUN (Urea Nitrogen) 59 mg/dL (9.8-20.1); Calc. Creatinine Clearance 67 mL/min (70-130); Calcium 7.8 mg/dL (7.8-10.44); Carbon Dioxide 18 mmol/L (22-29); Chloride 101 mmol/L (98-107); Glucose 404 mg/dL (70-105); Potassium 5.2 mmol/L (3.5-5.1); Sodium 130 mmol/L (136-145)
[2020-12-03] MEDS: Sodium Chloride 0.9% 1,000 ML IV SCH ×4 (04:19→22:10)
[2020-12-03] MEDS ORDERED: Insulin Glargine 45 UNITS in Pre-Filled Syringe 1 EACH SC SCH ×2 (04:30→21:00)
--- NOTE | 2020-12-03 05:58 | PDOC.FM ---
- Subjective Subjective: Mrs. Cain is doing okay this morning, although she is complaining of nausea and back pain. She states phenergan helps with her nausea. She understands the need to stay NPO and states she could not eat anyway if she wanted to, because of the nausea, which she attributes to gastroparesis. She is having back and shoulder pain which is chronic. She has Tylenol 3s at home for this pain which she is meant to take prn but she doesn't like how they make her feel groggy so she rarely takes them. Instead, she says she usually just "sucks it up". Her AG is closed and the insulin gtt has been d/c. - Objective Vital Signs & Weight: Vital Signs (12 hours) Temp Pulse Ox 12/03/20 04:00 97.4 F L 12/03/20 00:00 97.9 F 12/02/20 23:15 100 Weight Weight 175.6 kg Most Recent Monitor Data Heart Rate from ECG 69 NIBP 92/58 NIBP BP-Mean 69 Respiration from ECG 20 SpO2 99 I&O: 12/01/20 12/02/20 12/03/20 06:59 06:59 06:59 Intake Total 0 Output Total 450 Balance -450 Result Diagrams: 12/03/20 02:33 12/04/20 02:11 Phys Exam - Physical Examination Only distress is from back pain Neck: supple, full ROM Respiratory: no wheezing, no rales, clear to auscultation bilateral Cardiovascular: RRR, no significant murmur Gastrointestinal: soft, no distention Musculoskeletal: no edema Neurological: non-focal, moves all 4 limbs Psychiatric: normal affect, A&O x 3 Skin: no rash Dx/Plan - Plan Plan: Patient is a 55F with PMHx of DM1, on insulin pump admitted for DKA. DKA Metabolic Acidosis -uncertain etiology: possibly due to NSTEMI vs infectious source -A1C 8.6 -DKA protocol: anion gap 11 this am. Insulin gtt and q4h BMPs d/c this am. -Daughter took pt's insulin pump home, so she will be started on basal insulin based on her normal infusion rate per hour, over 24hrs, divided into 2 doses. Will call daughter to bring pump back so we can transition back to her home DM regimen * Lantus 45u BID. Will administer despite being NPO since pt typically has baseline insulin running and boluses for meals * Once insulin pump is returned, will start at half dose, since the 45u are reflective of the other half of her daily dose of insulin, then continue pump at full dose 24hrs after last Lantus administration Hyperkalemia -initial potassium 6.2 > 5.2 -likely falsely elevated d/t DKA, therefore expect continued improvement with insulin -will continue to monitor on BMPs NSTEMI -trop 0.596>0.645 -due to GFR, patient on heparin drip -Cardiology, Dr. Miramontes, consulted this am * Pt will remain NPO in case of cath Sepsis -patient has WBC 18 with 81% bands + procal 1.12 + hypotension -uncertain etiology. as patient is in DKA, suspect possible infectious source as cause -blood cultures pending * Cefepime pending results -despite hypotension, do not suspect septic shock at this time. See below. Hypotension with hx of HTN -patient has been significantly hypotensive, inconsistent with clinical presentation -will hold home meds for now -accuracy of BP readings is questionable given body habitus and forearm BP cuff -do 4 limb BP cuffs and consider arterial line for more accurate readings, if remain low OPHELIA on CKD stage 2 -Cr 2.13, GFR 24 worsening to Cr 2.68, GFR 19 -suspect pt is still volume down. Will bolus with 1L LR and then increase fluids to mIVF rate -will continue to monitor progression with am BMPs -renally dose medications -heparin for anticoag Prolonged QTc -QTc 511, avoid prolonging medications Gastroparesis -pt complaining of severe nausea that typically responds to phenergan. * Will hold phenergan at this time given risk of IV administration and of QT prolongation -start reglan -provide alcohol swabs if nausea continues Hx of lumbar stress fx -daughter states patient takes tylenol 3 approx 1x/wk, although pt not interested in taking them currently -allergy to tramadol and toradol -lidocaine patch, heating pad for now. Can offer tylenol 3s if pain persists and pt is amenable to taking them HLD -continue home meds Fibromyalgia -continue home meds Healing diabetic foot ulcer -wound care consulted Dispo: admitted to [facility] for DKA protocol and continued monitoring of BMP and glu cose. eLOS >48hrs. Diet: NPO DVT ppx: heparin gtt CODE: Full PCP: [facility] Cavazos Addendum - Attending - Attending Attestation Date/Time: 12/04/20 0311 I personally evaluated the patient and discussed the management with Dr. Arturo Sparks yesterday. I agree with the History, Examination, Assessment and Plan documented above with any addition or exceptions noted below.
[2020-12-03 06:55] LABS: Anion Gap 13 mmol/L (10-20); BUN (Urea Nitrogen) 57 mg/dL (9.8-20.1); Calc. Creatinine Clearance 63 mL/min (70-130); Calcium 7.3 mg/dL (7.8-10.44); Carbon Dioxide 22 mmol/L (22-29); Chloride 103 mmol/L (98-107); Glucose 209 mg/dL (70-105); Potassium 4.6 mmol/L (3.5-5.1); Sodium 133 mmol/L (136-145)
[2020-12-03] MEDS ORDERED: Lactated Ringer's 1,000 ML IV SCH (10:00)
[2020-12-03] MEDS: Bupropion 150 MG XL TAB PO SCH (10:29)
[2020-12-03] MEDS: Gabapentin 300 MG CAP PO SCH ×3 (10:29→21:50)
[2020-12-03] MEDS: Famotidine/PF 20 mg/2ml Vial SLOW IVP SCH (10:29)
[2020-12-03] MEDS: Aspirin 325 MG TAB PO SCH (10:29)
[2020-12-03] MEDS: Lactated Ringer's 1,000 ML IV SCH ×4 (11:45→22:09)
[2020-12-03] MEDS: Nitroglycerin 2% Ointment 1 INCH/1 GM Packet TOP SCH ×2 (13:47→21:50)
[2020-12-03] MEDS: Lidocaine 5% Patch TD SCH (13:47)
--- NOTE | 2020-12-03 13:47 | CON ---
DATE OF CONSULTATION: 12/03/2020 REASON FOR CONSULTATION: Increased troponin level, [id number]-[id number] infarction. PRIMARY MANAGER OFFICE SERVICES: Vasile Miramontes MD HISTORY OF PRESENT ILLNESS: Ms. Cain is a 55-year-old woman, admitted to the hospital with diabetic ketoacidosis. The patient was admitted yesterday. The patient presented with vomiting and found to have elevated blood sugar and acidosis, metabolic. She has been given heparin. She has been given insulin and fluid. The acidosis has been corrected. She does have some chest discomfort, middle of her chest to the left upper chest. She said she has had chest pain in the past, but this is somewhat different. The patient does have a previous history of diabetic ketoacidosis about 3 years ago. She has a history of chest pain in the past with negative noninvasive evaluation in the past. The patient is currently resting comfortably. She is still having intermittent mild discomfort. MEDICATIONS: Currently, 1. She is on aspirin. 2. She is on intravenous heparin. 3. She has been getting intravenous fluid. 4. She is on insulin. 5. She is on antibiotics. 6. She is on atorvastatin. ALLERGIES: TAHMINA INHIBITORS AND TRAMADOL. REVIEW OF SYSTEMS: CONSTITUTIONAL: Positive for difficulty ambulating due to her weight. VISION: No changes. HEARING: No changes. PULMONARY: No cough or wheezing. CARDIAC: Chest pain as outlined above. GASTROINTESTINAL: She did have vomiting and nausea prior to admission. PHYSICAL EXAMINATION: GENERAL: This is a very pleasant patient. She is extremely obese, 5 feet 7 inches tall, 387 pounds, BMI of 60. EYES: Sclerae nonicteric. MOUTH: Mucous membranes moist. NECK: Supple. No lymphadenopathy. LUNGS: Clear. CARDIAC: Distant, but I do not hear any murmur, rub, or gallop. ABDOMEN: Soft, nontender. No hepatosplenomegaly. EXTREMITIES: Warm and dry. No clubbing or cyanosis. There is rbut-gr-[id number] edema, right greater than left. PERTINENT LABORATORY DATA: Her creatinine is up to 2.8, it was 2.1 on admission. Previously, she had normal renal function in December of 2019. The patient states she had COVID twice this fall. Troponin level is 0.645. EKG, sinus rhythm, T-wave inversion in I and aVL, left axis deviation, some QRS widening at 0.114, poor R-wave progression. Other laboratory; her acidosis is corrected now with a CO2 initially of less than 8, now it is up to 22. ASSESSMENT: 1. Diabetic ketoacidosis, improved. 2. Renal failure, improving, at least stabilized. 3. Severe morbid obesity, BMI of 60. 4. Diabetes. 5. Bwp-TD-oghsajvbt infarction, probably demand ischemia, may well have underlying coronary artery disease. PLAN: 1. We will add nitrates. 2. Continue insulin and fluids. 3. Continue aspirin. 4. Continue heparin. Dr. Miramontes will be following along with you. Job ID: [id number]
[2020-12-03 16:37] LABS: Anion Gap 19 mmol/L (10-20); BUN (Urea Nitrogen) 69 mg/dL (9.8-20.1); Calc. Creatinine Clearance 56 mL/min (70-130); Calcium 7.6 mg/dL (7.8-10.44); Carbon Dioxide 19 mmol/L (22-29); Chloride 101 mmol/L (98-107); Glucose 293 mg/dL (70-105); Sodium 134 mmol/L (136-145)
[2020-12-03] MEDS: Cefepime 1 GM in Sodium Chloride 0.9% 100 ML IVPB SCH (17:09)
[2020-12-03] MEDS: Metoclopramide HCl 10 MG/2 ML VIAL IVP SCH (20:41)
[2020-12-03] MEDS: Transdermal Patch Removal TOP SCH (21:50)
[2020-12-03] MEDS: Atorvastatin Calcium 20 MG TAB PO SCH (21:50)
[2020-12-04 02:38] LABS: PTT 118.8 sec (22.9-36.1)
[2020-12-04 02:50] LABS: Anion Gap 15 mmol/L (10-20); BUN (Urea Nitrogen) 65 mg/dL (9.8-20.1); Calc. Creatinine Clearance 67 mL/min (70-130); Calcium 7.5 mg/dL (7.8-10.44); Carbon Dioxide 19 mmol/L (22-29); Chloride 104 mmol/L (98-107); Glucose 227 mg/dL (70-105); Potassium 4.9 mmol/L (3.5-5.1); Sodium 133 mmol/L (136-145)
[2020-12-04] MEDS: Lactated Ringer's 1,000 ML IV SCH ×6 (02:57→22:12)
--- NOTE | 2020-12-04 05:25 | PDOC.FM ---
- Subjective Subjective: Mrs. Cain continues to complain of pain and nausea this morning. She states the lidocaine patch did not help her back pain and she is still resistant to taking Tylenol 3s. She states Reglan has not been helpful for her nausea and continues to stress that Phenergan is the only thing that helps. - Objective Vital Signs & Weight: Vital Signs (12 hours) Temp Pulse Ox 12/04/20 04:00 98.6 F 12/03/20 23:00 98.6 F 12/03/20 20:00 98.7 F 96 12/03/20 19:03 100 Weight Admit Weight 175.6 kg Weight 175.6 kg Most Recent Monitor Data Heart Rate from ECG 73 NIBP 99/52 NIBP BP-Mean 67 Respiration from ECG 14 SpO2 99 I&O: 12/02/20 12/03/20 12/04/20 06:59 06:59 06:59 Intake Total 2520 6134.4 Output Total 450 550 Balance 2070 5584.4 Result Diagrams: 12/05/20 04:18 12/05/20 04:18 Phys Exam - Physical Examination Constitutional: NAD Neck: supple Respiratory: clear to auscultation bilateral Cardiovascular: RRR, no significant murmur (difficult to auscultate d/t body habitus) Musculoskeletal: no edema chronic skin changes of b/l LE without pitting Neurological: non-focal, moves all 4 limbs Psychiatric: normal affect, A&O x 3 Skin: no rash -: Large healing ulcer on L leg. R leg wrapped by wound care Dx/Plan - Plan Plan: Patient is a 55F with PMHx of DM1, on insulin pump admitted for DKA. T1DM Metabolic acidosis 2/2 DKA, resolved -uncertain etiology: possibly due to NSTEMI vs infectious source -DKA protocol d/c since AG closed since 12/03 -Continue home insulin pump -q6h accu checks since pt not eating Hyperkalemia, resolved -initial potassium 6.2 > 4.9 -will continue to monitor on BMPs NSTEMI -trop 0.596>0.645 -due to GFR, patient on heparin drip -Cardiology, Dr. Miramontes, consulted as this is pt's athletic team physician. Appreciate recs: * Started on nitrates * Echo ordered -NPO in case of procedure Sepsis -No longer meeting SIRS criteria s/p DKA tx and abx -Monitoring WBC count with am CBCs, since continue to be elevated -uncertain etiology. as patient is in DKA, suspect possible infectious source as cause -blood cultures pending * Cefepime pending results -hypotension has resolved, see below, so no concern for septic shock at this time hx of HTN Hypotension, resolved -BPs improved into low 100s-130s SBP. Continue to monitor -will continue to hold home meds for now -accuracy of BP readings is questionable given body habitus and forearm BP cuff OPHELIA on CKD stage 2 -Cr 2.13, GFR 24 on admission. On 12/03 Cr mode to 3.16. Today, has decreased to 2.66. -suspect improvement is d/t fluid resuscitation -will continue to monitor progression with am BMPs -renally dose medications -heparin for anticoag Prolonged QTc -QTc 511, avoid prolonging medications -Monitor given admin of Reglan. Avoid combo of Reglan and Phenergan Gastroparesis -pt complaining of severe nausea that typically responds to phenergan. * Will hold phenergan at this time given risk of QT prolongation -start reglan -avoid combo of both -provide alcohol swabs for nausea Hx of lumbar stress fx -daughter states patient takes tylenol 3 approx 1x/wk, although pt not interested in taking them currently -allergy to tramadol and toradol -lidocaine patch, heating pad for now. Can offer tylenol 3s if pain persists and pt is amenable to taking them HLD -continue home meds Fibromyalgia -continue home meds Healing diabetic foot ulcer -wound care consulted Dispo: admitted to [facility]. Will continue monitoring renal function, electrolytes, and glucose. Echo this am. eLOS >48hrs. Diet: NPO > CC 1800kcal DVT ppx: heparin gtt CODE: Full PCP: Yonis Cavazos Addendum - Attending - Attending Attestation Date/Time: 12/05/20 0711 I personally evaluated the patient and discussed the management with Dr. Kyler Sparks yesterday. I agree with the History, Examination, Assessment and Plan documented above with any addition or exceptions noted below.
[2020-12-04] MEDS: Nitroglycerin 2% Ointment 1 INCH/1 GM Packet TOP SCH ×3 (06:06→22:17)
[2020-12-04] MEDS: Acetaminophen 325 MG TAB PO PRN ×2 (07:57→20:43)
[2020-12-04] MEDS: Metoclopramide HCl 10 MG/2 ML VIAL IVP SCH ×2 (08:12→20:41)
[2020-12-04] MEDS: Famotidine/PF 20 mg/2ml Vial SLOW IVP SCH ×2 (08:22→08:48)
[2020-12-04] MEDS: Gabapentin 300 MG CAP PO SCH ×3 (08:45→20:42)
[2020-12-04] MEDS: Aspirin 325 MG TAB PO SCH (08:46)
[2020-12-04] MEDS: Bupropion 150 MG XL TAB PO SCH (08:46)
[2020-12-04] MEDS: Lidocaine 5% Patch TD SCH (08:49)
[2020-12-04] MEDS ORDERED: Lidocaine 5% Patch TD SCH (09:00)
[2020-12-04] MEDS ORDERED: Insulin Glargine 45 UNITS in Pre-Filled Syringe 1 EACH SC SCH ×2 (10:45→21:00)
[2020-12-04] MEDS ORDERED: Enoxaparin Sodium 80 MG/0.8 ML SYRINGE SC SCH (16:15)
[2020-12-04] MEDS ORDERED: Enoxaparin Sodium 100 MG/ML SYRINGE SC SCH (16:15)
[2020-12-04] MEDS: Cefepime 1 GM in Sodium Chloride 0.9% 100 ML IVPB SCH (16:39)
[2020-12-04] MEDS ORDERED: Dextrose 50% Abboject 50 ML SYRINGE IVP PRN (16:45)
[2020-12-04] MEDS ORDERED: [UNRECOGNIZED DRUG - OTHER] SC SCH (16:45)
[2020-12-04] MEDS ORDERED: Dextrose 5% in Water 1,000 ML IV PRN (16:45)
[2020-12-04] MEDS ORDERED: Enoxaparin Sodium 30 MG/0.3 ML SYRINGE SC SCH (17:45)
[2020-12-04] MEDS: Chloraseptic Spray 180 ml Bottle PO PRN (17:51)
[2020-12-04] MEDS: Atorvastatin Calcium 20 MG TAB PO SCH (20:40)
[2020-12-04] MEDS: Transdermal Patch Removal TOP SCH (20:41)
[2020-12-04] MEDS ORDERED: Enoxaparin Sodium 120 MG/0.8 ML SYRINGE SC SCH (21:00)
[2020-12-05] MEDS: Lactated Ringer's 1,000 ML IV SCH ×4 (03:40→22:31)
[2020-12-05 04:34] LABS: #Eosinphils 0.2 thou/uL (0.0-0.7); #Lymphocytes 2.3 thou/uL (1.20-3.40); #Monocytes 0.6 thou/uL (0.11-0.59); #Neutrophils 5.5 thou/uL (1.40-6.50); %Basophils 0.2 % (0.0-1.0); %Eosinophils 2.3 % (0.0-10.0); %Lymphocytes 26.7 % (21.0-51.0); %Monocytes 6.9 % (0.0-10.0); Hemoglobin 9.2 g/dL (12.0-16.0); Mean Corpuscular Volume 87.8 fL (78.0-98.0); Mean Platelet Volume 8.2 fL (7.4-10.4); Platelet Count 172 thou/uL (130-400); RBC Distribution Width 13.4 % (11.5-14.5); Red Blood Cell (RBC) Count 3.17 mill/uL (4.20-5.40); White Blood Cell (WBC) Count 8.5 thou/uL (4.8-10.8)
[2020-12-05 05:02] LABS: Anion Gap 10 mmol/L (10-20); BUN (Urea Nitrogen) 48 mg/dL (9.8-20.1); Calc. Creatinine Clearance 105 mL/min (70-130); Calcium 8.3 mg/dL (7.8-10.44); Carbon Dioxide 24 mmol/L (22-29); Cardiac Risk 4.6 (Less than 4.5); Chloride 109 mmol/L (98-107); Cholesterol 227 mg/dl (< 200 Desired); Glucose 82 mg/dL (70-105); HDL Cholesterol 49 mg/dL (>60 Neg Risk); LDL Cholesterol, Calculated 151 mg/dL; Potassium 4.4 mmol/L (3.5-5.1); Sodium 139 mmol/L (136-145); Triglycerides 135 mg/dL (Less than 150)
[2020-12-05] MEDS: Chloraseptic Spray 180 ml Bottle PO PRN (05:58)
[2020-12-05] MEDS: Nitroglycerin 2% Ointment 1 INCH/1 GM Packet TOP SCH ×3 (05:59→20:18)
[2020-12-05] MEDS ORDERED: Enoxaparin Sodium 80 MG/0.8 ML SYRINGE SC SCH ×2 (06:00→21:00)
[2020-12-05] MEDS ORDERED: Enoxaparin Sodium 100 MG/ML SYRINGE SC SCH ×2 (06:00→21:00)
--- NOTE | 2020-12-05 06:27 | PDOC.FM ---
- Subjective Subjective: Ms. Cain was sleeping comfortably this morning and was groggy as I spoke to her. She states she continues to have nausea but is "powering through it" and is agreeable to attempting to eat again today. She is otherwise feeling well. - Objective Vital Signs & Weight: Vital Signs (12 hours) Temp Pulse Resp BP BP Pulse Ox 12/05/20 03:43 98.4 F 73 20 143/67 H 100 12/04/20 23:20 99.4 F 76 17 120/64 93 L 12/04/20 20:42 94 L 12/04/20 19:45 98.0 F 82 20 144/65 H 94 L Weight Admit Weight 175.6 kg Weight 175.6 kg Most Recent Monitor Data Heart Rate from ECG 77 NIBP 142/82 NIBP BP-Mean 102 Respiration from ECG 17 SpO2 95 I&O: 12/03/20 12/04/20 12/05/20 06:59 06:59 06:59 Intake Total 2520 6134.4 3217.0 Output Total 450 1150 2400 Balance 2070 4984.4 817.0 Result Diagrams: 12/05/20 04:18 12/05/20 04:18 Phys Exam - Physical Examination Constitutional: NAD Neck: supple Respiratory: clear to auscultation bilateral Cardiovascular: RRR (tele shows NSR), no significant murmur Musculoskeletal: no edema Neurological: non-focal, moves all 4 limbs Psychiatric: normal affect, A&O x 3 Skin: no rash Dx/Plan - Plan Plan: Patient is a 55F with PMHx of DM1, on insulin pump admitted for DKA. T1DM Metabolic acidosis 2/2 DKA, resolved -uncertain etiology: possibly due to NSTEMI vs infectious source -Continue home insulin pump -q6h accu checks since pt not eating d/t nausea -continue to encourage po intake Hyperkalemia, resolved -will continue to monitor on BMPs NSTEMI -trop 0.596>0.645 -Cardiology, Dr. Miramontes, consulted as this is pt's cutting inspector. Appreciate recs: * Started on nitrates * Echo order was cancelled * Needs cath but will postpone d/t renal function. Can reconsider with improvement. * Heparin gtt d/c. Lovenox 30mg once daily d/t renal function. See below -NPO cancelled > CC diet Sepsis -No longer meeting SIRS criteria s/p DKA tx and abx -Leukocytosis resolved. 18 > 8.5 this am -uncertain etiology. as patient is in DKA, suspect possible infectious source as cause -UCx and BCx negative - D/c Cefepime (12/03-12/04) hx of HTN Hypotension, resolved -BPs improved into 140s SBP. Continue to monitor -will continue to hold home meds for now OPHELIA on CKD stage 2 -Cr 2.13, GFR 24 on admission. On 12/03 Cr mode to 3.16. Today, has decreased to 1.7. Suspect improvement is d/t fluid resuscitation -CrCl 105 for actual weight, but 37 for ideal body weight -will continue to monitor progression with am BMPs -renally dose medications -ppx Lovenox, per cards recs, for anticoag Prolonged QTc -QTc 511, avoid prolonging medications -Monitor given admin of Reglan. Avoid combo of Reglan and Phenergan Gastroparesis -pt complaining of severe nausea that typically responds to phenergan. * Will hold phenergan at this time given risk of QT prolongation -continue reglan -avoid combo of both -provide alcohol swabs for nausea Hx of lumbar stress fx -daughter states patient takes tylenol 3 approx 1x/wk, although pt not interested in taking them currently -allergy to tramadol and toradol -lidocaine patch, heating pad, tylenol for now. Can offer tylenol 3s if pain persists and pt is amenable to taking them HLD -continue home meds Fibromyalgia -continue home meds Healing diabetic foot ulcer -wound care consulted Dispo: Transferred to tele given d/c of heparin and insulin gtts. Will continue monitoring renal function, electrolytes, and glucose. eLOS pending nephro recs. Diet: CC 1800kcal DVT ppx: Lovenox 30mg daily CODE: Full PCP: CHANDNI-Valentine Cavazos Addendum - Attending - Attending Attestation Date/Time: 12/05/20 7610 I personally evaluated the patient and discussed the management with Dr. Arturo Sparks. I agree with the History, Examination, Assessment and Plan documented above with any addition or exceptions noted below.
[2020-12-05] MEDS: Gabapentin 300 MG CAP PO SCH ×3 (08:24→20:25)
[2020-12-05] MEDS: Metoclopramide HCl 10 MG/2 ML VIAL IVP SCH ×2 (08:24→20:24)
[2020-12-05] MEDS: Acetaminophen 325 MG TAB PO PRN ×2 (08:25→15:57)
[2020-12-05] MEDS: Bupropion 150 MG XL TAB PO SCH (08:26)
[2020-12-05] MEDS: Lidocaine 5% Patch TD SCH (08:26)
[2020-12-05] MEDS: Aspirin 325 MG TAB PO SCH (08:26)
[2020-12-05] MEDS ORDERED: Insulin Glargine 45 UNITS in Pre-Filled Syringe 1 EACH SC SCH (09:00)
[2020-12-05] MEDS ORDERED: Communication Order-Pharmacy FS SCH (17:00)
[2020-12-05] MEDS: Famotidine/PF 20 mg/2ml Vial SLOW IVP SCH (20:19)
[2020-12-05] MEDS: Atorvastatin Calcium 40 MG TAB PO SCH (20:24)
[2020-12-05] MEDS: Enoxaparin Sodium 30 MG/0.3 ML SYRINGE SC SCH (20:28)
[2020-12-05] MEDS: Transdermal Patch Removal TOP SCH (20:28)
[2020-12-06] MEDS: Acetaminophen 325 MG TAB PO PRN ×2 (03:45→08:53)
[2020-12-06] MEDS: Lactated Ringer's 1,000 ML IV SCH ×3 (03:46→19:30)
[2020-12-06 04:35] LABS: #Eosinphils 0.2 thou/uL (0.0-0.7); #Lymphocytes 1.4 thou/uL (1.20-3.40); #Monocytes 0.5 thou/uL (0.11-0.59); #Neutrophils 7.7 thou/uL (1.40-6.50); %Basophils 0.4 % (0.0-1.0); %Eosinophils 2.1 % (0.0-10.0); %Lymphocytes 14.4 % (21.0-51.0); %Monocytes 5.4 % (0.0-10.0); %Neutrophils 77.7 % (42.0-75.0); Hemoglobin 9.2 g/dL (12.0-16.0); Mean Corpuscular Hemoglobin 29.6 pg (27.0-31.0); Mean Corpuscular Volume 89.7 fL (78.0-98.0); Mean Platelet Volume 8.3 fL (7.4-10.4); Platelet Count 169 thou/uL (130-400); RBC Distribution Width 13.3 % (11.5-14.5); Red Blood Cell (RBC) Count 3.11 mill/uL (4.20-5.40); White Blood Cell (WBC) Count 9.9 thou/uL (4.8-10.8)
[2020-12-06 05:04] LABS: Anion Gap 9 mmol/L (10-20); BUN (Urea Nitrogen) 27 mg/dL (9.8-20.1); Calc. Creatinine Clearance 154 mL/min (70-130); Calcium 8.3 mg/dL (7.8-10.44); Carbon Dioxide 26 mmol/L (22-29); Chloride 110 mmol/L (98-107); Glucose 116 mg/dL (70-105); Potassium 4.7 mmol/L (3.5-5.1); Sodium 140 mmol/L (136-145)
[2020-12-06] MEDS: Nitroglycerin 2% Ointment 1 INCH/1 GM Packet TOP SCH ×3 (05:19→20:26)
--- NOTE | 2020-12-06 06:48 | PDOC.FM ---
- Subjective Subjective: Patient explains she felt extremely short of breath for 20-30 minutes last night. This is not common for her. She was complaining of some lower back pain which is chronic. - Objective Vital Signs & Weight: Vital Signs (12 hours) Temp Pulse Resp BP BP Pulse Ox 12/06/20 04:15 77 142/65 H 12/06/20 03:38 98.2 F 20 171/79 H 97 12/06/20 00:00 98.5 F 104 H 20 142/93 H 94 L 12/05/20 19:25 98 F 82 20 132/79 95 Weight Admit Weight 175.6 kg Weight 175.6 kg Most Recent Monitor Data Heart Rate from ECG 77 NIBP 142/82 NIBP BP-Mean 102 Respiration from ECG 17 SpO2 95 I&O: 12/04/20 12/05/20 12/06/20 06:59 06:59 06:59 Intake Total 6134.4 3217.0 4740 Output Total 1150 2400 1000 Balance 4984.4 817.0 3740 Result Diagrams: 12/06/20 04:15 12/06/20 04:15 EKG Reviewed by me: Yes (tele: SR 60s) Phys Exam - Physical Examination Constitutional: NAD HEENT: moist MMs, sclera anicteric Neck: full ROM Respiratory: no wheezing, no rales, no rhonchi, clear to auscultation bilateral Cardiovascular: RRR, no significant murmur Gastrointestinal: soft, non-tender Musculoskeletal: pulses present, edema present Neurological: non-focal Lymphatic: no nodes Psychiatric: normal affect, A&O x 3 Dx/Plan - Plan Plan: Patient is a 55F with PMHx of DM1, on insulin pump admitted for DKA. T1DM Metabolic acidosis 2/2 DKA, resolved -uncertain etiology: possibly due to NSTEMI vs infectious source -Continue home insulin pump -q6h accu checks since pt not eating d/t nausea -continue to encourage po intake Hyperkalemia, resolved -will continue to monitor on BMPs NSTEMI -trop 0.596>0.645 -Cardiology, Dr. 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 Appreciate recs: * Started on nitrates * Echo pending * Cath scheduled for Tuesday, 12/08 * Heparin gtt d/c. Lovenox 30mg once daily d/t renal function. See below * started atorvastatin 80mg daily -CC diet, NPO at midnight on 12/08 Sepsis -No longer meeting SIRS criteria s/p DKA tx and abx -Leukocytosis resolved. 18 > 8.5 this am -uncertain etiology. as patient is in DKA, suspect possible infectious source as cause -UCx and BCx negative - D/c Cefepime (12/03-12/04) hx of HTN Hypotension, resolved -BPs improved into 140s SBP. Continue to monitor -restart home metoprolol today, continue to hold HCTZ OPHELIA on CKD stage 2, improved -Cr 2.13, GFR 24 on admission. On 12/03 Cr mode to 3.16. Improved to 1.16 with fluid rescucitation. -CrCl 105 for actual weight, but 37 for ideal body weight -will continue to monitor progression with am BMPs -renally dose medications -ppx Lovenox, per cards recs, for anticoag Prolonged QTc -QTc 511, avoid prolonging medications -Monitor given admin of Reglan. Avoid combo of Reglan and Phenergan Gastroparesis -pt complaining of severe nausea that typically responds to phenergan. * Will hold phenergan at this time given risk of QT prolongation -continue reglan -avoid combo of both -provide alcohol swabs for nausea Hx of lumbar stress fx -daughter states patient takes tylenol 3 approx 1x/wk, although pt not interested in taking them currently -allergy to tramadol and toradol -lidocaine patch, heating pad, tylenol for now. Can offer tylenol 3s if pain persists and pt is amenable to taking them HLD -continue home meds Fibromyalgia -continue home meds Healing diabetic foot ulcer -wound care consulted Dispo: Cath on Tuesday, 12/08 Diet: CC 1800kcal DVT ppx: Lovenox 30mg daily CODE: Full PCP: CHANDNI-Valentine Cavazos
[2020-12-06] MEDS: Aspirin 325 MG TAB PO SCH (08:33)
[2020-12-06] MEDS: Gabapentin 300 MG CAP PO SCH ×3 (08:34→20:29)
[2020-12-06] MEDS: Famotidine/PF 20 mg/2ml Vial SLOW IVP SCH ×2 (08:35→20:30)
[2020-12-06] MEDS: Bupropion 150 MG XL TAB PO SCH (08:35)
[2020-12-06] MEDS: Metoclopramide HCl 10 MG/2 ML VIAL IVP SCH ×2 (08:35→20:26)
[2020-12-06] MEDS: Lidocaine 5% Patch TD SCH (08:36)
--- NOTE | 2020-12-06 11:46 | PRG ---
DATE OF SERVICE: 12/06/2020 The patient was seen, evaluated, discussed, and examined with the residents by bedside. Ms. Vizcarra came in initially in DKA and showing evidence of an NSTEMI. According to her, her last A1c was actually 7 in August. So, it sounds like she was actually controlled before this, so it is unclear if the DE led to DKA, but now it is fairly stable, although she admits last night, she had a period of shortness of breath. Does not sound like telemetry while that was happening. Her sugars are better controlled and is scheduled for heart catheterization on Tuesday. Exam, the lungs are clear. Does have 1+ pitting edema bilaterally. Job ID: [id number]
--- NOTE | 2020-12-06 14:10 | PDOC.CPN ---
- Subjective Date: 12/06/20 Time: 14:08 Interval history: patient lying in bed, resting comfortably, her daughter is at beside, she denies any complaints today. Denies chest pain & shortness of breath - Review of Systems General: denies: fever/chills, weight/appetite/sleep changes, night sweats, fatigue Respiratory: denies: cough, congestion, shortness of breath, exercise intolerance Cardiovascular: denies: chest pain, palpitation, edema, paroxysmal nocturnal dyspnea, orthopnea Gastrointestinal: denies: nausea, vomiting, diarrhea, constipation, abd pain, GI bleeding Musculoskeletal: denies: pain, tenderness, stiffness, swelling, arthritis/arthralgias Neurological: denies: numbness, syncope, seizure, weakness - Objective Allergies/Adverse Reactions: Allergies Allergy/AdvReac Type Severity Reaction Status Date / Time TAHMINA Inhibitors Allergy Verified 12/03/20 00:35 ketorolac [From Toradol] Allergy Verified 12/03/20 00:35 tramadol Allergy Verified 12/03/20 00:35 latex based adhesives Allergy Uncoded 01/13/20 23:55 Visit Medications: Current Medications Acetaminophen (Acetaminophen 325 Mg Tab) 650 mg PO Q4H PRN PRN Reason: Headache/Fever/Mild Pain (1-3) Last Admin: 12/06/20 08:53 Dose: 650 mg Documented by: Acetaminophen (Acetaminophen 650 Mg Suppository) 650 mg CO Q4H PRN PRN Reason: Headache/Fever/Mild Pain (1-3) Aspirin (Aspirin 325 Mg Tab) 325 mg PO DAILY COUNT INCLUDES THE [facility] Last Admin: 12/06/20 08:33 Dose: 325 mg Documented by: Atorvastatin Calcium (Atorvastatin Calcium 40 Mg Tab) 80 mg PO [facility] Last Admin: 12/05/20 20:24 Dose: 80 mg Documented by: Bupropion HCl (Bupropion 150 Mg Xl Tab) 150 mg PO DAILY COUNT INCLUDES THE [facility] Last Admin: 12/06/20 08:35 Dose: 150 mg Documented by: Dextrose/Water (Dextrose 50% Abboject 50 Ml Syringe) 25 gm IVP PRN PRN PRN Reason: HYPOGLYCEMIA PROTOCOL Enoxaparin Sodium (Enoxaparin Sodium 30 Mg/0.3 Ml Syringe) 30 mg SC 2100 COUNT INCLUDES THE [facility] Stop: 12/07/20 23:59 Last Admin: 12/05/20 20:28 Dose: 30 mg Documented by: Famotidine (Famotidine/Pf 20 Mg/2ml Vial) 20 mg SLOW IVP Q12HR COUNT INCLUDES THE [facility] Last Admin: 12/06/20 08:35 Dose: 20 mg Documented by: Gabapentin (Gabapentin 300 Mg Cap) 600 mg PO TID COUNT INCLUDES THE [facility] Last Admin: 12/06/20 08:34 Dose: 600 mg Documented by: Glucagon (Glucagon 1 Mg/Ml Vial) 1 mg IM PRN PRN PRN Reason: HYPOGLYCEMIA PROTOCOL Dextrose/Water (D5w) 1,000 mls @ 0 mls/hr IV INF PRN PRN Reason: HYPOGLYCEMIA PROTOCOL Lactated Ringer's (Lactated Ringer's) 1,000 mls @ 150 mls/hr IV .Q6H40M COUNT INCLUDES THE [facility] Stop: 12/08/20 06:00 Last Admin: 12/06/20 11:58 Dose: 1,000 mls Documented by: Sodium Chloride (Normal Saline 0.9%) 1,000 mls @ 100 mls/hr IV .Q10H COUNT INCLUDES THE [facility] Lidocaine (Lidocaine 5% Patch) 1 patch TD DAILY COUNT INCLUDES THE [facility] Last Admin: 12/06/20 08:36 Dose: Not Given Documented by: Metoclopramide HCl (Metoclopramide Hcl 10 Mg/2 Ml Vial) 10 mg IVP BID COUNT INCLUDES THE [facility] Last Admin: 12/06/20 08:35 Dose: 10 mg Documented by: Metoprolol Succinate (Metoprolol Succinate Xl 25 Mg Tab) 25 mg PO DAILY COUNT INCLUDES THE [facility] Last Admin: 12/06/20 08:39 Dose: 25 mg Documented by: Miscellaneous Information (Communication Order-Pharmacy ) 0 each FS ONE COUNT INCLUDES THE [facility] Stop: 12/07/20 23:59 Miscellaneous Medication (Lidocaine Patch Removal 1 Each) 0 each TOP 2100 COUNT INCLUDES THE [facility] Last Admin: 12/05/20 20:28 Dose: Not Given Documented by: Nitroglycerin (Nitroglycerin 2% Ointment 1 Inch/1 Gm Packet) 0.5 inch TOP Q8HR COUNT INCLUDES THE [facility] Last Admin: 12/06/20 05:19 Dose: 0.5 inch Documented by: Home Insulin For (Pump) 0 each SC .CONTINUOUS COUNT INCLUDES THE [facility] Phenol (Chloraseptic [place] 180 Ml Bottle) 0 ml PO BIDPRN PRN PRN Reason: Sore Throat Last Admin: 12/05/20 05:58 Dose: 5 sprays Documented by: Vital Signs & Weight: Vital Signs Temp Pulse Resp BP BP Pulse Ox 12/06/20 11:46 97.9 F 71 18 118/56 L 97 12/06/20 08:25 97.9 F 74 16 133/65 99 12/06/20 04:15 77 142/65 H 12/06/20 03:38 98.2 F 20 171/79 H 97 Admit Weight 387 lb 2.107 oz Weight 387 lb 2.107 oz - Physical Exam General: alert & oriented x3, appears well, no apparent distress Neck: no bruit Cardiac: no murmur, S1/S2 Lungs: normal breath sounds, normal exam Neuro: grossly intact, motor function intact Abdomen: active bowel sounds, soft Extremities: 1+ LE edema, 2+ Posterior Tibial, 2+ Dorsalis Pedus Skin: clear Musculoskeletal: no pain - Labs Result Diagrams: 12/06/20 04:15 12/06/20 04:15 Troponin/CKMB CK-MB (CK-2) 13.0 ng/mL (0-6.6) H* 12/02/20 15:38 Troponin I 0.645 ng/mL (< 0.028) H* 12/02/20 16:38 - EKG Interpretation EKG Method: Telemetry EKG: sinus rhythm - Assessment/Plan Assessment/Plan: 1. DKA: impaired renal function, her creatinine went from 1.70 to 1.16 today, receiving IV fluids 2. NSTEMI type II: her echocardiogram showed an EF of 55-60%, grade II/III ramonita stolic dysfunction, mitral annular calcifications, discussed results with patient & family 3. OPHELIA 4. Morbid obesity 5. HTN: under reasonable control at this time 6. Hyperlipidemia 7. Asthma Plan for left heart catheterization on Tuesday with Dr. Miramontes, receiving IV fluids for renal impairment, continue current treatment plan Pt. seen and eval. by me. I agree with the A/P by the PHOTOVOLTAIC INSTALLATION TECHNICIAN. Chest clear. RRR
[2020-12-06] MEDS: Atorvastatin Calcium 40 MG TAB PO SCH (20:26)
[2020-12-06] MEDS: Enoxaparin Sodium 30 MG/0.3 ML SYRINGE SC SCH (20:30)
[2020-12-06] MEDS: Transdermal Patch Removal TOP SCH (20:30)
[2020-12-06] MEDS: diphenhydrAMINE 50 MG CAP PO PRN (22:01)
[2020-12-06] MEDS ORDERED: Hydrochlorothiazide 25 MG TAB PO SCH (23:15)
[2020-12-07] MEDS: Nitroglycerin 2% Ointment 1 INCH/1 GM Packet TOP SCH ×3 (05:59→21:08)
--- NOTE | 2020-12-07 06:50 | PDOC.FM ---
- Subjective Subjective: Patient has no complaints this morning. She is nervous about her cath tomorrow. - Objective Vital Signs & Weight: Vital Signs (12 hours) Temp Pulse Resp BP BP BP Pulse Ox 12/07/20 03:15 99 F 84 20 144/71 H 93 L 12/07/20 00:55 86 20 138/68 12/06/20 23:00 99.2 F 79 20 184/100 H 92 L 12/06/20 21:00 187/81 H 12/06/20 19:30 98.4 F 83 20 201/93 H 93 L Weight Admit Weight 175.6 kg Weight 175.6 kg Most Recent Monitor Data Heart Rate from ECG 77 NIBP 142/82 NIBP BP-Mean 102 Respiration from ECG 17 SpO2 95 I&O: 12/05/20 12/06/20 12/07/20 06:59 06:59 06:59 Intake Total 3217.0 4740 4600 Output Total 2400 1000 Balance 817.0 3740 4600 Result Diagrams: 12/07/20 07:18 12/07/20 07:18 EKG Reviewed by me: Yes (tele: SR 70-80s) Phys Exam - Physical Examination Constitutional: NAD HEENT: moist MMs, sclera anicteric Neck: full ROM Respiratory: no wheezing, no rales, no rhonchi, clear to auscultation bilateral Cardiovascular: RRR, no significant murmur Gastrointestinal: soft, non-tender Musculoskeletal: pulses present, edema present Neurological: non-focal Lymphatic: no nodes Psychiatric: normal affect, A&O x 3 Deviation from normal: chronic ulcer on medial side of L ankle Dx/Plan - Plan Plan: Patient is a 55F with PMHx of DM1, on insulin pump admitted for DKA. NSTEMI -trop 0.596>0.645 -Cardiology, Dr. 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 Appreciate recs: * Started on nitrates * Echo: EF 55-60%, grad 2/3 diastolic dysfunction, mitral annular calcification * Cath scheduled for Tuesday, 12/08 * Heparin gtt d/c. Lovenox 30mg once daily d/t renal function. See below * started atorvastatin 80mg daily -CC diet, NPO at midnight on 12/08 T1DM Metabolic acidosis 2/2 DKA, resolved -uncertain etiology: possibly due to NSTEMI vs infectious source -Continue home insulin pump -q6h accu checks since pt not eating d/t nausea -continue to encourage po intake Hyperkalemia, resolved -will continue to monitor on BMPs Sepsis -No longer meeting SIRS criteria s/p DKA tx and abx -Leukocytosis resolved. 18 > 8.5 this am -uncertain etiology. as patient is in DKA, suspect possible infectious source as cause -UCx and BCx negative -D/c Cefepime (12/03-12/04) hx of HTN Hypotension, resolved -BPs improved into 140s SBP. Continue to monitor -restart home metoprolol today, continue to hold HCTZ OPHELIA on CKD stage 2, resolved -Cr 1.05 with fluid resuscitation. IVF d/gian last night -CrCl 105 for actual weight, but 37 for ideal body weight -will continue to monitor progression with am BMPs -renally dose medications -ppx Lovenox, per cards recs, for anticoag Prolonged QTc -QTc 511, avoid prolonging medications -Monitor given admin of Reglan. Avoid combo of Reglan and Phenergan Gastroparesis -pt complaining of severe nausea that typically responds to phenergan. * Will hold phenergan at this time given risk of QT prolongation -continue reglan -avoid combo of both -provide alcohol swabs for nausea Hx of lumbar stress fx -daughter states patient takes tylenol 3 approx 1x/wk, although pt not interested in taking them currently -allergy to tramadol and toradol -lidocaine patch, heating pad, tylenol for now. Can offer tylenol 3s if pain persists and pt is amenable to taking them HLD -continue home meds Fibromyalgia -continue home meds Healing diabetic foot ulcer -wound care consulted Dispo: Cath on Tuesday, 12/08 Diet: CC 1800kcal DVT ppx: Lovenox 30mg daily CODE: Full PCP: CHANDNI-Valentine Cavazos
[2020-12-07 07:23] LABS: #Eosinphils 0.4 thou/uL (0.0-0.7); #Lymphocytes 2.3 thou/uL (1.20-3.40); #Monocytes 0.7 thou/uL (0.11-0.59); #Neutrophils 7.4 thou/uL (1.40-6.50); %Basophils 0.3 % (0.0-1.0); %Eosinophils 3.8 % (0.0-10.0); %Lymphocytes 21.2 % (21.0-51.0); %Monocytes 6.8 % (0.0-10.0); %Neutrophils 67.9 % (42.0-75.0); Hemoglobin 10.4 g/dL (12.0-16.0); Mean Corpuscular Hemoglobin 29.1 pg (27.0-31.0); Mean Corpuscular Volume 90.9 fL (78.0-98.0); Mean Platelet Volume 8.3 fL (7.4-10.4); Platelet Count 217 thou/uL (130-400); RBC Distribution Width 13.6 % (11.5-14.5); Red Blood Cell (RBC) Count 3.56 mill/uL (4.20-5.40); White Blood Cell (WBC) Count 10.9 thou/uL (4.8-10.8)
[2020-12-07 07:43] LABS: Anion Gap 10 mmol/L (10-20); BUN (Urea Nitrogen) 20 mg/dL (9.8-20.1); Calc. Creatinine Clearance 170 mL/min (70-130); Calcium 8.8 mg/dL (7.8-10.44); Carbon Dioxide 28 mmol/L (22-29); Chloride 107 mmol/L (98-107); Glucose 60 mg/dL (70-105); Potassium 4.7 mmol/L (3.5-5.1); Sodium 140 mmol/L (136-145)
[2020-12-07] MEDS: Aspirin 325 MG TAB PO SCH (09:09)
[2020-12-07] MEDS: Bupropion 150 MG XL TAB PO SCH (09:09)
[2020-12-07] MEDS: Metoclopramide HCl 10 MG/2 ML VIAL IVP SCH ×2 (09:09→21:08)
[2020-12-07] MEDS: Gabapentin 300 MG CAP PO SCH ×3 (09:09→21:07)
[2020-12-07] MEDS: Famotidine/PF 20 mg/2ml Vial SLOW IVP SCH ×2 (09:13→21:06)
[2020-12-07] MEDS: Lidocaine 5% Patch TD SCH (09:22)
[2020-12-07] MEDS: Acetaminophen 325 MG TAB PO PRN ×2 (09:24→14:29)
--- NOTE | 2020-12-07 12:41 | PRG ---
DATE OF SERVICE: 12/07/2020 Please see the note from Dr. Natanael Harris, for which I agree. The patient was seen, evaluated, discussed, and examined with residents by bedside. Basically, things are stable, although she has had a little bit of low sugar, back on her insulin pump. Echo showed diastolic dysfunction, but normal EF and main thing is she is getting a heart catheterization tomorrow. Metoprolol was restarted for blood pressure being elevated. Otherwise, exam is unchanged. Trace edema. Lungs are clear and obviously management will be based on what the heart catheterization shows tomorrow. Job ID: [id number]
--- NOTE | 2020-12-07 14:44 | PDOC.CPN ---
- Subjective Date: 12/07/20 Time: 14:43 Interval history: Patient sitting in chair, daughter at bedside, she states she didn't have a good night, she states she got short of breath for a short period and did not sleep well. She states the shortness of breath is resolved today. - Review of Systems General: denies: fever/chills, weight/appetite/sleep changes, night sweats, fatigue Respiratory: denies: cough, congestion, shortness of breath, exercise intolerance Cardiovascular: denies: chest pain, palpitation, edema, paroxysmal nocturnal dyspnea, orthopnea Gastrointestinal: denies: nausea, vomiting, diarrhea, constipation, abd pain, GI bleeding Musculoskeletal: denies: pain, tenderness, stiffness, swelling, arthritis/arthralgias Neurological: denies: numbness, syncope, seizure, weakness - Objective Allergies/Adverse Reactions: Allergies Allergy/AdvReac Type Severity Reaction Status Date / Time TAHMINA Inhibitors Allergy Verified 12/03/20 00:35 ketorolac [From Toradol] Allergy Verified 12/03/20 00:35 tramadol Allergy Verified 12/03/20 00:35 latex based adhesives Allergy Uncoded 01/13/20 23:55 Visit Medications: Current Medications Acetaminophen (Acetaminophen 325 Mg Tab) 650 mg PO Q4H PRN PRN Reason: Headache/Fever/Mild Pain (1-3) Last Admin: 12/07/20 14:29 Dose: 650 mg Documented by: Acetaminophen (Acetaminophen 650 Mg Suppository) 650 mg [place] Q4H PRN PRN Reason: Headache/Fever/Mild Pain (1-3) Aspirin (Aspirin 325 Mg Tab) 325 mg PO DAILY [facility] Last Admin: 12/07/20 09:09 Dose: 325 mg Documented by: Atorvastatin Calcium (Atorvastatin Calcium 40 Mg Tab) 80 mg PO [facility] Last Admin: 12/06/20 20:26 Dose: 80 mg Documented by: Bupropion HCl (Bupropion 150 Mg Xl Tab) 150 mg PO DAILY [facility] Last Admin: 12/07/20 09:09 Dose: 150 mg Documented by: Dextrose/Water (Dextrose 50% Abboject 50 Ml Syringe) 25 gm IVP PRN PRN PRN Reason: HYPOGLYCEMIA PROTOCOL Diphenhydramine HCl (Diphenhydramine 50 Mg Cap) 50 mg PO HSPRN PRN PRN Reason: .SLEEP Last Admin: 12/06/20 22:01 Dose: 50 mg Documented by: Enoxaparin Sodium (Enoxaparin Sodium 30 Mg/0.3 Ml Syringe) 30 mg SC 2100 [facility] Stop: 12/07/20 23:59 Last Admin: 12/06/20 20:30 Dose: 30 mg Documented by: Famotidine (Famotidine/Pf 20 Mg/2ml Vial) 20 mg SLOW IVP Q12HR [facility] Last Admin: 12/07/20 09:13 Dose: 20 mg Documented by: Gabapentin (Gabapentin 300 Mg Cap) 600 mg PO TID [facility] Last Admin: 12/07/20 14:29 Dose: 600 mg Documented by: Glucagon (Glucagon 1 Mg/Ml Vial) 1 mg IM PRN PRN PRN Reason: HYPOGLYCEMIA PROTOCOL Dextrose/Water (D5w) 1,000 mls @ 0 mls/hr IV INF PRN PRN Reason: HYPOGLYCEMIA PROTOCOL Sodium Chloride (Normal Saline 0.9%) 1,000 mls @ 100 mls/hr IV .Q10H [facility] Lidocaine (Lidocaine 5% Patch) 1 patch TD DAILY [facility] Last Admin: 12/07/20 09:22 Dose: Not Given Documented by: Metoclopramide HCl (Metoclopramide Hcl 10 Mg/2 Ml Vial) 10 mg IVP BID [facility] Last Admin: 12/07/20 09:09 Dose: 10 mg Documented by: Metoprolol Succinate (Metoprolol Succinate Xl 25 Mg Tab) 25 mg PO DAILY [facility] Last Admin: 12/07/20 09:09 Dose: 25 mg Documented by: Miscellaneous Information (Communication Order-Pharmacy ) 0 each FS ONE [facility] Stop: 12/07/20 23:59 Miscellaneous Medication (Lidocaine Patch Removal 1 Each) 0 each TOP 2100 [facility] Last Admin: 12/06/20 20:30 Dose: Not Given Documented by: Nitroglycerin (Nitroglycerin 2% Ointment 1 Inch/1 Gm Packet) 0.5 inch TOP Q8HR [facility] Last Admin: 12/07/20 14:28 Dose: 0.5 inch Documented by: Home Insulin For (Pump) 0 each SC .CONTINUOUS [facility] Phenol (Chloraseptic [place] 180 Ml Bottle) 0 ml PO BIDPRN PRN PRN Reason: Sore Throat Last Admin: 12/05/20 05:58 Dose: 5 sprays Documented by: Sodium Chloride (Flush - Normal Saline 10 Ml Syringe) 10 ml IVF PRN PRN PRN Reason: Saline Flush Vital Signs & Weight: Vital Signs Temp Pulse Resp BP BP Pulse Ox 12/07/20 11:47 80 20 164/74 H 94 L 12/07/20 09:04 80 17 167/77 H 96 12/07/20 08:00 95 12/07/20 03:15 99 F 84 20 144/71 H 93 L Admit Weight 387 lb 2.107 oz Weight 387 lb 2.107 oz - Physical Exam General: alert & oriented x3, appears well, no apparent distress HEENT: mucus membranes moist Neck: supple neck, no bruit Cardiac: no murmur, regular rate, bradycardia Lungs: normal breath sounds, no wheeze, rales, rhonchi Neuro: grossly intact Abdomen: active bowel sounds, soft Extremities: 1+ LE edema Skin: clear, wound, other (healing wound to bottom of right foot, chronic, has been dealing with for over one year) Musculoskeletal: no pain - Labs Result Diagrams: 12/07/20 07:18 12/07/20 07:18 Troponin/CKMB CK-MB (CK-2) 13.0 ng/mL (0-6.6) H* 12/02/20 15:38 Troponin I 0.645 ng/mL (< 0.028) H* 12/02/20 16:38 - EKG Interpretation EKG Method: Telemetry EKG: sinus rhythm - Assessment/Plan Assessment/Plan: 1. DKA: impaired renal function, her creatinine went from 116 to 1.05 today, her fluids were stopped last night d/t shortness of breath, her lung sounds are CTA bilaterally 2. NSTEMI type II: her echocardiogram showed an EF of 55-60%, grade II/III diastolic dysfunction, mitral annular calcifications, discussed results with patient & family 3. OPHELIA 4. Morbid obesity 5. HTN: her BP was elevated overnight, she was re-started on her home Metoprolol, will continue to monitor 6. Hyperlipidemia 7. Asthma Plan for left heart catheterization on Tuesday with Dr. Miramontes, long discussion with patient & family today about left heart catheterization including pre-and post procedure as well as risks associated with procedure. Pt. seen and eval. by me. I agree with the A/P by the HIGH RISK CASE MANAGER. Chest clear. RRR . She is requesting something to help her sleep. The benadryl did not help last night.
[2020-12-07] MEDS ORDERED: Zolpidem Tartrate 5 MG TAB PO PRN (18:23)
[2020-12-07] MEDS: Enoxaparin Sodium 30 MG/0.3 ML SYRINGE SC SCH (21:06)
[2020-12-07] MEDS: Atorvastatin Calcium 40 MG TAB PO SCH (21:06)
[2020-12-07] MEDS: Transdermal Patch Removal TOP SCH (21:08)
[2020-12-08] MEDS: diphenhydrAMINE 50 MG CAP PO PRN ×2 (00:34→21:50)
[2020-12-08] MEDS ORDERED: Sodium Chloride 0.9% 1,000 ML IV SCH ×2 (06:00→13:30)
[2020-12-08] MEDS ORDERED: Lidocaine 1% (PF) 30 ML VIAL ONE (06:53)
[2020-12-08] MEDS ORDERED: Fentanyl 100 MCG/2 ML VIAL ONE (07:05)
[2020-12-08] MEDS ORDERED: Adenosine 6 MG/2 ML VIAL ONE (07:05)
[2020-12-08] MEDS ORDERED: Midazolam HCl 2 mg/2 ml Vial ONE (07:05)
[2020-12-08] MEDS ORDERED: Nitroglycerin 100MG/250ML BOT 0 ML ONE (07:05)
[2020-12-08] MEDS ORDERED: Heparin 10,000 UNITS/ 10 ML VIAL ONE (07:05)
[2020-12-08] MEDS ORDERED: Aspirin 325 MG TAB ONE (07:31)
[2020-12-08] MEDS ORDERED: Bupropion 150 MG XL TAB ONE ×2 (07:32)
[2020-12-08] MEDS ORDERED: Gabapentin 300 MG CAP ONE (07:32)
[2020-12-08] MEDS ORDERED: Amiodarone 200 MG TAB ONE (07:35)
[2020-12-08] MEDS ORDERED: Carvedilol 25 MG TAB ONE (07:35)
[2020-12-08] MEDS ORDERED: Apixaban 5 MG TAB ONE (07:35)
[2020-12-08] MEDS ORDERED: Aspirin Chewable 81 MG TAB ONE (07:35)
[2020-12-08] MEDS ORDERED: Protamine Sulfate 50 MG/5 ML VIAL ONE (08:02)
[2020-12-08] MEDS ORDERED: hydrALAZINE 20 MG/ML VIAL ONE (08:02)
[2020-12-08] MEDS ORDERED: Famotidine/PF 20 mg/2ml Vial ONE (09:41)
[2020-12-08] MEDS ORDERED: Morphine 2 MG/ML VIAL ONE ×2 (09:41→12:48)
[2020-12-08] MEDS ORDERED: Metoclopramide HCl 10 MG/2 ML VIAL ONE (09:41)
[2020-12-08] MEDS: Morphine 2 MG/ML VIAL SLOW IVP PRN ×3 (09:45→22:39)
[2020-12-08] MEDS ORDERED: Carvedilol 6.25 MG TAB ONE (10:01)
[2020-12-08] MEDS: Aspirin 325 MG TAB PO SCH (10:03)
[2020-12-08] MEDS: Bupropion 150 MG XL TAB PO SCH (10:03)
[2020-12-08] MEDS: Gabapentin 300 MG CAP PO SCH ×3 (10:03→21:49)
[2020-12-08] MEDS: Metoclopramide HCl 10 MG/2 ML VIAL IVP SCH ×2 (10:03→21:49)
[2020-12-08] MEDS: Famotidine/PF 20 mg/2ml Vial SLOW IVP SCH ×2 (10:03→21:48)
[2020-12-08] MEDS ORDERED: Iopamidol 370 76% 50 ML VIAL FS ONE (11:07)
[2020-12-08] MEDS ORDERED: Iopamidol 370 76% 100 ML VIAL ONE (11:07)
[2020-12-08] MEDS: Nitroglycerin 2% Ointment 1 INCH/1 GM Packet TOP SCH ×2 (15:08→22:39)
[2020-12-08] MEDS: Lidocaine 5% Patch TD SCH (15:10)
[2020-12-08] MEDS: Acetaminophen 325 MG TAB PO PRN (16:14)
--- NOTE | 2020-12-08 16:50 | CON ---
DATE OF CONSULTATION: HISTORY OF PRESENT ILLNESS: Ms. Cain is a 55-year-old woman who was admitted on 12/02 with DKA. She has multiple medical problems. While she has been here, she was seen by Dr. Arthur initially for chest pain. Today, she underwent cardiac catheterization by Dr. Miramontes, which has revealed severe 3-vessel disease. She unfortunately has small LAD that was diffusely diseased and a small PDA that was diffusely diseased. Neither of these are bypassable targets. She also has proximal ramus disease. I have been asked to see her to consider coronary artery bypass grafting. PAST MEDICAL HISTORY: 1. Uncontrolled diabetes mellitus. 2. Morbid obesity. 3. Hypertension. 4. Fibromyalgia. 5. Asthma. 6. Dyslipidemia. 7. Peripheral vascular disease. 8. Peripheral neuropathy. 9. Fibromyalgia. 10. Sciatica. PAST SURGICAL HISTORY: 1. Tubal ligation. 2. Cholecystectomy. 3. x5. 4. Right foot surgery for osteomyelitis. SOCIAL HISTORY: She quit smoking 10 years ago. She does not use alcohol or drugs. CURRENT MEDICATIONS: Noted. ALLERGIES: TAHMINA INHIBITORS, TRAMADOL, AND LATEX. PHYSICAL EXAMINATION: VITAL SIGNS: Height is 5 feet 7 inches and weight is 387 pounds. BSA is 2.88, BMI is 60.6. LUNGS: Have distant breath sounds bilaterally. HEART: Rhythm is regular. EXTREMITIES: There is no edema. ASSESSMENT AND PLAN: This is an unfortunate 55-year-old morbidly obese woman who has diffusely diseased targets. Due to her obesity and coronary status, I would not consider her for bypass. She should be managed medically only. Job ID: [id number]
--- NOTE | 2020-12-08 18:10 | PDOC.BPN ---
- Brief Progress Note Encounter Date: 12/08/20 Encounter Time: 18:00 This is a brief progress note for 12/08/20. Mrs. Cain had her L heart cath with Dr. Miramontes today and was found to have diffuse 3 vessel disease. CV surg, Dr. Ceron, was consulted. Given her body habitus, he recommends medical management only at this time. Follow Dr. Miramontes's recs for d/c planning. See paper chart for more details.
[2020-12-08 18:42] LABS: Anion Gap 11 mmol/L (10-20); BUN (Urea Nitrogen) 18 mg/dL (9.8-20.1); Calc. Creatinine Clearance 145 mL/min (70-130); Calcium 8.5 mg/dL (7.8-10.44); Carbon Dioxide 26 mmol/L (22-29); Chloride 106 mmol/L (98-107); Glucose 140 mg/dL (70-105); Sodium 138 mmol/L (136-145)
--- NOTE | 2020-12-08 19:06 | ULT ---
SOFT TISSUE ULTRASOUND RIGHT GROIN: INDICATIONS: Recent catheterization. Hematoma right groin. TECHNIQUE: Soft tissue ultrasound performed to assess right groin for pseudoaneurysm. The right common femoral artery and vein are identified with color Doppler and spectral analysis. FINDINGS: There is no evidence of pseudoaneurysm identified. IMPRESSION: No evidence of pseudoaneurysm. POS: AGW
[2020-12-08 19:18] LABS: #Eosinphils 0.4 thou/uL (0.0-0.7); #Monocytes 0.6 thou/uL (0.11-0.59); #Neutrophils 6.6 thou/uL (1.40-6.50); %Basophils 0.2 % (0.0-1.0); %Eosinophils 4.2 % (0.0-10.0); %Lymphocytes 21.1 % (21.0-51.0); %Monocytes 6.6 % (0.0-10.0); %Neutrophils 67.9 % (42.0-75.0); Hemoglobin 9.3 g/dL (12.0-16.0); Mean Corpuscular HGB CONC 31.3 g/dL (32.0-36.0); Mean Corpuscular Hemoglobin 28.3 pg (27.0-31.0); Mean Corpuscular Volume 90.7 fL (78.0-98.0); Mean Platelet Volume 8.8 fL (7.4-10.4); Platelet Count 215 thou/uL (130-400); RBC Distribution Width 13.7 % (11.5-14.5); Red Blood Cell (RBC) Count 3.28 mill/uL (4.20-5.40); White Blood Cell (WBC) Count 9.6 thou/uL (4.8-10.8)
[2020-12-08] MEDS ORDERED: Carvedilol 6.25 MG TAB PO SCH (21:00)
[2020-12-08] MEDS: Atorvastatin Calcium 40 MG TAB PO SCH (21:48)
[2020-12-08] MEDS: Transdermal Patch Removal TOP SCH (21:49)
[2020-12-08] MEDS: Chloraseptic Spray 180 ml Bottle PO PRN (22:42)
[2020-12-09] MEDS: Morphine 2 MG/ML VIAL SLOW IVP PRN (02:41)
[2020-12-09 03:40] LABS: #Eosinphils 0.5 thou/uL (0.0-0.7); #Lymphocytes 2.6 thou/uL (1.20-3.40); #Monocytes 0.6 thou/uL (0.11-0.59); #Neutrophils 5.3 thou/uL (1.40-6.50); %Basophils 0.5 % (0.0-1.0); %Eosinophils 5.5 % (0.0-10.0); %Lymphocytes 28.8 % (21.0-51.0); %Neutrophils 58.2 % (42.0-75.0); Hemoglobin 8.8 g/dL (12.0-16.0); Mean Corpuscular HGB CONC 32.1 g/dL (32.0-36.0); Mean Corpuscular Hemoglobin 28.7 pg (27.0-31.0); Mean Corpuscular Volume 89.5 fL (78.0-98.0); Mean Platelet Volume 8.1 fL (7.4-10.4); Platelet Count 235 thou/uL (130-400); RBC Distribution Width 13.4 % (11.5-14.5); Red Blood Cell (RBC) Count 3.07 mill/uL (4.20-5.40); White Blood Cell (WBC) Count 9.1 thou/uL (4.8-10.8)
[2020-12-09 04:08] LABS: Anion Gap 12 mmol/L (10-20); BUN (Urea Nitrogen) 22 mg/dL (9.8-20.1); Calc. Creatinine Clearance 158 mL/min (70-130); Calcium 8.3 mg/dL (7.8-10.44); Carbon Dioxide 24 mmol/L (22-29); Chloride 106 mmol/L (98-107); Glucose 104 mg/dL (70-105); Potassium 4.8 mmol/L (3.5-5.1); Sodium 137 mmol/L (136-145)
[2020-12-09] MEDS: Nitroglycerin 2% Ointment 1 INCH/1 GM Packet TOP SCH ×3 (06:06→20:56)
--- NOTE | 2020-12-09 06:28 | PDOC.FM ---
- Subjective Subjective: Mrs. Cain is doing well this morning. She had not been seen by Dr. Ceron, so it had not been explained to her that she is not a candidate for surgery. She is concerned about what medical management would entail and what this could mean for her life expectancy. She denies any other concerns/complaints at this time. - Objective Vital Signs & Weight: Vital Signs (12 hours) Temp Pulse Resp BP BP Pulse Ox 12/09/20 04:00 98.4 F 61 14 178/81 H 96 12/08/20 20:00 98.6 F 66 20 128/60 94 L Weight Admit Weight 175.6 kg Weight 175.6 kg Most Recent Monitor Data Heart Rate from ECG 77 NIBP 142/82 NIBP BP-Mean 102 Respiration from ECG 17 SpO2 95 I&O: 12/07/20 12/08/20 12/09/20 06:59 06:59 06:59 Intake Total 6950 1680 1705 Output Total 0026 420 8361 Balance 5300 980 -1045 Result Diagrams: 12/09/20 03:21 12/09/20 03:21 Phys Exam - Physical Examination Constitutional: NAD Neck: supple Respiratory: clear to auscultation bilateral Difficult to auscultate clearly 2/2 body habitus Cardiovascular: RRR, no significant murmur Difficult to auscultate clearly 2/2 body habitus b/l non-pittind edema, unchanged from previous exams Neurological: non-focal, moves all 4 limbs Psychiatric: normal affect, A&O x 3 Dx/Plan - Plan Plan: Patient is a 55F with PMHx of DM1, on insulin pump admitted for DKA. NSTEMI -trop 0.596 > 0.645 -Cardiology, Dr. 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 Appreciate re cs: * Started on nitrates * Echo: EF 55-60%, grad 2/3 diastolic dysfunction, mitral annular calcification * Cath 12/08 showing severe, diffuse 3 vessel disease * started atorvastatin 80mg daily -CV surg, Dr. Ceron, consulted. * Given pt's body habitus, recommends medical management rather than surgical -HH-LS diet T1DM -Continue home insulin pump -q6h accu checks -continue to encourage po intake HTN -BPs improved into 140s SBP. Continue to monitor -restart home metoprolol today, continue to hold HCTZ OPEHLIA on CKD stage 2, resolved -Cr 1.05 with fluid resuscitation. -CrCl improving. 158 for actual weight, but 55 for ideal body weight -will continue to monitor progression with am BMPs -renally dose medications -SCDs for ppx, per cards Prolonged QTc -QTc 511, avoid prolonging medications -Monitor given admin of Reglan. Avoid combo of Reglan and Phenergan Gastroparesis -pt complaining of severe nausea that typically responds to phenergan. * Will hold phenergan at this time given risk of QT prolongation -continue reglan -avoid combo of both -provide alcohol swabs for nausea Healing diabetic foot ulcer -wound care consulted Sacral wound -documented by wound care on 12/07 Hx of lumbar stress fx -daughter states patient takes tylenol 3 approx 1x/wk, although pt not interested in taking them currently -allergy to tramadol and toradol -lidocaine patch, heating pad, tylenol for now. Can offer tylenol 3s if pain persists and pt is amenable to taking them HLD -continue home meds Fibromyalgia -continue home meds Hyperkalemia, resolved -will continue to monitor on BMPs Metabolic acidosis 2/2 DKA, resolved Hypotension, resolved Sepsis, resolved Dispo: D/c pending cardiology recs and weather-permitting. Pt lives >1hr away; her is at their house and states they have no power or water, that he has been sleeping in the car at night, and that they cannot get up their driveway. Diet: HH-LS DVT ppx: SCDs CODE: Full PCP: CHANDNI-Valentine Cavazos Addendum - Attending - Attending Attestation Date/Time: 12/09/20 0148 I personally evaluated the patient and discussed the management with Dr. Arturo Sparks. I agree with the History, Examination, Assessment and Plan documented above with any addition or exceptions noted below.
[2020-12-09] MEDS: hydrALAZINE 25 MG TAB PO SCH ×3 (08:56→20:54)
[2020-12-09] MEDS: Aspirin 325 MG TAB PO SCH (08:56)
[2020-12-09] MEDS: Gabapentin 300 MG CAP PO SCH ×3 (08:56→20:55)
[2020-12-09] MEDS: Lidocaine 5% Patch TD SCH (08:57)
[2020-12-09] MEDS: Famotidine/PF 20 mg/2ml Vial SLOW IVP SCH ×2 (08:57→20:55)
[2020-12-09] MEDS: Metoclopramide HCl 10 MG/2 ML VIAL IVP SCH ×2 (08:57→20:56)
[2020-12-09] MEDS: Carvedilol 6.25 MG TAB PO SCH ×3 (08:57→20:54)
[2020-12-09] MEDS: Bupropion 150 MG XL TAB PO SCH (08:57)
[2020-12-09] MEDS: Acetaminophen 325 MG TAB PO PRN (14:26)
[2020-12-09] MEDS: Atorvastatin Calcium 40 MG TAB PO SCH (20:53)
[2020-12-09] MEDS: Transdermal Patch Removal TOP SCH (20:55)
[2020-12-09] MEDS ORDERED: Polyethylene Glycol 3350 17 GM Packet PO PRN (23:42)
[2020-12-10] MEDS: Nitroglycerin 2% Ointment 1 INCH/1 GM Packet TOP SCH ×2 (05:03→14:53)
[2020-12-10 05:26] LABS: #Eosinphils 0.4 thou/uL (0.0-0.7); #Lymphocytes 2.2 thou/uL (1.20-3.40); #Monocytes 0.6 thou/uL (0.11-0.59); #Neutrophils 6.6 thou/uL (1.40-6.50); %Basophils 0.5 % (0.0-1.0); %Eosinophils 4.5 % (0.0-10.0); %Lymphocytes 22.2 % (21.0-51.0); %Monocytes 5.7 % (0.0-10.0); %Neutrophils 67.1 % (42.0-75.0); Hemoglobin 8.8 g/dL (12.0-16.0); Mean Corpuscular HGB CONC 32.4 g/dL (32.0-36.0); Mean Corpuscular Hemoglobin 29.3 pg (27.0-31.0); Mean Corpuscular Volume 90.7 fL (78.0-98.0); Mean Platelet Volume 8.1 fL (7.4-10.4); Platelet Count 266 thou/uL (130-400); RBC Distribution Width 13.2 % (11.5-14.5); White Blood Cell (WBC) Count 9.8 thou/uL (4.8-10.8)
[2020-12-10 05:38] LABS: Anion Gap 12 mmol/L (10-20); BUN (Urea Nitrogen) 18 mg/dL (9.8-20.1); Calc. Creatinine Clearance 162 mL/min (70-130); Calcium 8.3 mg/dL (7.8-10.44); Carbon Dioxide 25 mmol/L (22-29); Chloride 108 mmol/L (98-107); Potassium 5.2 mmol/L (3.5-5.1); Sodium 140 mmol/L (136-145)
[2020-12-10 06:07] LABS: Glucose 43 mg/dL (70-105)
--- NOTE | 2020-12-10 06:35 | PDOC.FM ---
- Subjective Subjective: Mrs. Cain is doing well this morning and has no complaints. She had a hypoglycemic episode with a BG of 43. She got juice and crackers and it was increased to the low 80s. She states she has been eating well but has not always been getting 3 meals per day - yesterday she reportedly only received breakfast and dinner trays. She continues to deny CP. She endorses SOB only when exerting herself. She has spoken to her who states they now have running cold water but continue to be without power. - Objective Vital Signs & Weight: Vital Signs (12 hours) Temp Pulse Resp BP BP Pulse Ox 12/10/20 04:00 98.4 F 77 20 136/68 93 L 12/09/20 20:54 69 12/09/20 20:00 97.8 F 69 18 177/81 H 94 L Weight Admit Weight 175.6 kg Weight 175.6 kg Most Recent Monitor Data Heart Rate from ECG 77 NIBP 142/82 NIBP BP-Mean 102 Respiration from ECG 17 SpO2 95 I&O: 12/08/20 12/09/20 12/10/20 06:59 06:59 06:59 Intake Total 1680 1705 2714 Output Total 700 2750 Balance 980 -1045 2714 Result Diagrams: 12/10/20 04:38 12/10/20 04:38 Phys Exam - Physical Examination Constitutional: NAD Neck: supple, full ROM Respiratory: clear to auscultation bilateral Difficult to auscultate given body habitus Cardiovascular: RRR, no significant murmur Difficult to auscultate given body habitus. Tele on NSR Non-pitting edema, essentially unchanged from previous exams Neurological: non-focal, moves all 4 limbs Psychiatric: normal affect, A&O x 3 Dx/Plan - Plan Plan: Patient is a 55F with PMHx of DM1, on insulin pump admitted for DKA. NSTEMI -trop 0.596 > 0.645 -Cardiology, Dr. 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 Appreciate recs: * Started on nitrates * Cath 12/08 showing severe, diffuse 3 vessel disease * started atorvastatin 80mg daily -CV surg, Dr. Ceron, consulted. * Given pt's body habitus, recommends medical management rather than surgical -HH-LS diet T1DM -Continue home insulin pump -q6h accu checks -hypoglycemia protocol. Had a BG in the 40s this am, responsive to juice and crackers. HTN -SBPs into 170s. Continue to monitor -Metoprolol, Coreg TID, Hydralazine TID, per cards OPHELIA on CKD stage 2, resolved -CrCl improving. 158 for actual weight, but 99 for adjusted body weight -will continue to monitor progression with am BMPs -renally dose medications -SCDs for ppx, per cards Prolonged QTc -QTc 511, avoid prolonging medications -Monitor given admin of Reglan. Avoid combo of Reglan and Phenergan Gastroparesis -pt complaining of severe nausea that typically responds to phenergan. * Will hold phenergan at this time given risk of QT prolongation -continue reglan -avoid combo of both -provide alcohol swabs for nausea Healing diabetic foot ulcer -wound care consulted Sacral wound -documented by wound care on 12/07 Hx of lumbar stress fx -daughter states patient takes tylenol 3 approx 1x/wk, although pt not interested in taking them currently -allergy to tramadol and toradol -heating pad, tylenol for now. Can offer tylenol 3s if pain persists and pt is amenable to taking them HLD -continue home meds Fibromyalgia -continue home meds Hyperkalemia, resolved -will continue to monitor on BMPs Metabolic acidosis 2/2 DKA, resolved Hypotension, resolved Sepsis, resolved Dispo: D/c pending cardiology recs and weather-permitting. Pt lives >1hr away; her is at their house and states they have no power or water, that he has been sleeping in the car at night, and that they cannot get up their driveway. Diet: HH-LS DVT ppx: SCDs CODE: Full PCP: CHANDNI-Valentine Caavzos Addendum - Attending - Attending Attestation Date/Time: 12/10/20 0700 I personally evaluated the patient and discussed the management with Dr. Arturo Sparks. I agree with the History, Examination, Assessment and Plan documented above with any addition or exceptions noted below.
[2020-12-10] MEDS: Aspirin 325 MG TAB PO SCH (09:20)
[2020-12-10] MEDS: Acetaminophen 325 MG TAB PO PRN (09:20)
[2020-12-10] MEDS: Bupropion 150 MG XL TAB PO SCH (09:20)
[2020-12-10] MEDS: Metoclopramide HCl 10 MG/2 ML VIAL IVP SCH (09:21)
[2020-12-10] MEDS: hydrALAZINE 25 MG TAB PO SCH ×2 (09:21→14:55)
[2020-12-10] MEDS: Gabapentin 300 MG CAP PO SCH ×2 (09:21→14:54)
[2020-12-10] MEDS: Carvedilol 6.25 MG TAB PO SCH ×2 (09:21→14:55)
[2020-12-10] MEDS: Famotidine/PF 20 mg/2ml Vial SLOW IVP SCH (09:21)
[2020-12-10 11:31] VITALS: BP 145/76; TEMP 98.5
[2020-12-10] MEDS ORDERED: Furosemide 20 MG TAB PO SCH (12:30)
[2020-12-11] MEDS ORDERED: Furosemide 20 MG TAB PO SCH (09:00)
== END 2020-12-10 16:24 | disposition home or self-care (01) | DRG 871 ==
LOC: ERS 15:18 → ERHOLD 20:34 → IMCU/EMU 23:23 → 2NO 12-04 19:48
PROVIDERS: ADMIT Family Medicine; ATTEND Family Medicine
PROC: 4A023N7 Measurement of Cardiac Sampling and Pressure, Left Heart, Percutaneous Approach (ICD-10-PCS; principal; 2020-12-08)
PROC: B2151ZZ Fluoroscopy of Left Heart using Low Osmolar Contrast (ICD-10-PCS; 2020-12-08)
PROC: B2111ZZ Fluoroscopy of Multiple Coronary Arteries using Low Osmolar Contrast (ICD-10-PCS; 2020-12-08)
DX: A41.9 Sepsis, unspecified organism (principal); E10.10 Type 1 diabetes mellitus with ketoacidosis without coma; I21.A1 Myocardial infarction type 2; N17.9 Acute kidney failure, unspecified; Z68.44 Body mass index [BMI] 60.0-69.9, adult; Z20.822 Contact with and (suspected) exposure to COVID-19; I12.9 Hypertensive chronic kidney disease with stage 1 through stage 4 chronic kidney disease, or unspecified chronic kidney disease; N18.2 Chronic kidney disease, stage 2 (mild); E10.22 Type 1 diabetes mellitus with diabetic chronic kidney disease; E10.43 Type 1 diabetes mellitus with diabetic autonomic (poly)neuropathy; K31.84 Gastroparesis; I45.81 Long QT syndrome; E78.5 Hyperlipidemia, unspecified; M79.7 Fibromyalgia; E87.5 Hyperkalemia; Z96.41 Presence of insulin pump (external) (internal); F32.9 Major depressive disorder, single episode, unspecified; E66.01 Morbid (severe) obesity due to excess calories; J45.909 Unspecified asthma, uncomplicated; E10.42 Type 1 diabetes mellitus with diabetic polyneuropathy; E10.51 Type 1 diabetes mellitus with diabetic peripheral angiopathy without gangrene; Z88.8 Allergy status to other drugs, medicaments and biological substances; Z88.6 Allergy status to analgesic agent; Z91.040 Latex allergy status; Z79.4 Long term (current) use of insulin; Z79.82 Long term (current) use of aspirin; Z79.899 Other long term (current) drug therapy; Z98.51 Tubal ligation status; Z90.49 Acquired absence of other specified parts of digestive tract
CPT/HCPCS: 36415; 36416; 71045; 76942; 76999; 80048; 80053; 80061; 81001; 82010; 82330; 82553; 82803; 83036; 83690; 83735; 84100; 84145; 84484; 85025; 85347; 85730; 87040; 87086; 93005; 93306; 93458; 94760; 96365; 96366; 96367; 96374; 96375; 96376; 97139; 99152; J0153; J0171; J0360; J0692; J1644; J1650; J1815; J2001; J2250; J2270; J2405; J2550; J2720; J2765; J3010; J3490; Q9967; S0028; U0002